=== PATIENT | female | born 1990 | race Caucasian/White ===

== ENCOUNTER 2018-08-09 03:26 | Emergency (ER) | payer SELFPAY ==
--- OUTSIDE RECORDS SUMMARY | 2018-08-09 03:31 | XMS REPORT | Continuity of Care Document ---
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 RIGHT ANKLE Active [facility] FRACTURE 7 [facility] R TIB/FIB FX Active [address] [place] Active Problem 03/24/2018 right [facility] fracture<sup>1</s Medical up> Center [place] fracture Active Problem 02/09/2017 [facility] Final: Displaced 01/22/2017 [facility] [place] fracture of Medical right tibia, Center initial encounter for closed fracture Body mass index 03/24/2018 [facility] 40.0-44.9, adult Medical [place] Morbid obesity 03/24/2018 [facility] due to excess Medical calories [place] Nicotine 03/24/2018 [facility] dependence, Medical cigarettes, Center uncomplicated Unspecified 03/24/2018 [facility] asthma, Medical uncomplicated Center DISPLACED [place]IL[place] Active [facility] FRACTURE OF RIGHT Medical TIBIA, Center Medications Medication Details Route Status Patient Ordering Order Source Instructions Provider Date aspirin 325 mg 325 mg=1 tab, Active 12/16[facility] [place] tablet PO, BID, # 84 2018 Medical tab, 0 Refill(s) [place] Docusate Sodium 100 mg=1 cap, Active 12/16[facility] [place] 100 MG Oral PO, Q12H, PRN as 2018 Medical Capsule needed for Center constipation, # 28 cap, 0 Refill(s) pregabalin 100 100 mg=1 cap, Active 12/16[facility] [place] mg oral capsule PO, Q8H, # 30 2018 Medical cap, 0 Refill(s) Center Oxycodone 10 mg=2 tab, PO, No Longer 12/16[facility] [place] Hydrochloride 5 Q4H, PRN Pain Active 2018 Medical MG Oral Tablet Score 7-10, # 50 Center tab, 0 Refill(s) methocarbamol 1,000 mg=2 tab, No Longer [place] 500 mg oral PO, Q8H, X 10 Active 2018 Medical tablet day, # 60 tab, 0 Center Refill(s) Ondansetron 4 MG 4 mg=1 tab, PO, Active [facility] Oral Tablet BID, # 10 tab, 0 2018 Medical [Zofran] Refill(s) [place] Robaxin 1,000 mg, 2 tab, Inactive [facility] Route: PO, Drug 2018 Medical form: TAB, Q8H, Center Dosing Weight 102.273, kg, Start date: 12/16/17 4:00:00 IMPORT EXPORT AGENT, Duration: 30 day, Stop date: 01/15/18 0:00:00 CDTNotes: (Same as:Robaxin) meloxicam 15 mg 15 mg=1 tab, PO, Active [facility] oral tablet Daily, 2018 Medical NEEDED, 0 Center Refill(s) Docusate 100 mg, Route: No Longer [place] PO, BID, Dosing Active 2017 Medical Weight 102.273, Center kg, Start date: 12/15/17 9:00:00 IMPORT EXPORT AGENT, Duration: 30 day, Stop date: 01/13/18 17:00:00 CDT influenza virus 0.5 mL, Route: Inactive [place] vaccine, IM, Drug Form: 2018 Medical inactivated SUSP, Daily, Center Start date: 12/15/17 9:00:00 IMPORT EXPORT AGENT, Duration: 1 doses or times, Stop date: 12/15/17 9:00:00 CSTNotes: (Same as: Fluzone Quadrivalent, Fluarix Quadrivalent) For 3 years of age and older (0.5 mL IM) Shake well before use Ancef + sterile 1 gm, Route: No Longer [facility] water 10 mL IVP, Q8H, Dosing Active 2018 Medical Weight 102.273, Center kg, Start date: 12/14/17 22:20:00 IMPORT EXPORT AGENT, Duration: 3 doses or times, Stop date: 12/15/17 16:00:00 IMPORT EXPORT AGENT, ABX Indication: Surgical ProphylaxisNotes : (Same As: Ancef, Kefzol) MEDICATION WASTE Product Size: 1000 mg Product Wasted: ___ mg pregabalin 100 mg, 1 cap, No Longer [facility] Route: PO, Drug Active 2017 Medical form: CAP, Q8H, Center Dosing Weight 102.273, kg, Start date: 12/14/17 22:20:00 IMPORT EXPORT AGENT, Duration: 30 day, Stop date: 01/13/18 16:00:00 CDTNotes: (Same as: Lyrica) aspirin 325 mg 325 mg, 1 tab, No Longer [facility] tablet Route: PO, Drug Active 2017 Medical form: ECTAB, Center Q12H, Dosing Weight 102.273, kg, Start date: 12/14/17 22:19:00 IMPORT EXPORT AGENT, Duration: 30 day, Stop date: 01/13/18 21:00:00 CDTNotes: (Do Not Crush) Do not crush or chew. sennosides, ALF 2 tab, Route: Inactive [facility] PO, Dosing 2017 Medical Weight 102.273, Center kg, Bedtime, Start date: 12/14/17 21:00:00 IMPORT EXPORT AGENT, Duration: 30 day, Stop date: 01/12/18 21:00:00 CDT Oxycodone 5 mg, Route: PO, Inactive [facility] Drug form: TAB, 2018 Medical Q4H, Dosing Center Weight 102.273, kg, PRN Pain Score 4-6, Start date: 12/14/17 18:02:00 IMPORT EXPORT AGENT, Duration: 30 day, Stop date: 01/13/18 18:01:00 CDT Flumazenil 0.2 mg, 2 mL, Inactive [facility] Route: IVP, Drug 2017 Medical form: INJ, PRN, Center Dosing Weight 102.273, kg, PRN Benzodiazepine Reversal, Initial dose, Start date: 12/14/17 18:02:00 IMPORT EXPORT AGENT, Duration: 1 day, Stop date: 12/15/17 18:01:00 CSTNotes: (Same as: Romazicon) Naloxone 0.4 mg, 1 mL, Inactive [facility] Route: IVP, Drug 2017 Medical form: INJ, Center Q2MIN, Dosing Weight 102.273, kg, PRN Narcotic Reversal, Start date: 12/14/17 18:02:00 IMPORT EXPORT AGENT, Duration: 8 doses or times, Stop date: 12/15/17 0:00:00 CSTNotes: Same as Narcan Ondansetron 4 mg, 2 mL, Inactive [place] Route: IVP, Drug 2017 Medical form: INJ, ONCE, Center Dosing Weight 102.273, kg, PRN Nausea & Vomiting, Start date: 12/14/17 18:02:00 CSTNotes: (Same as: Zofran) MEDICATION WASTE Product Size: 4 mg Product Wasted: ___ mg Hydromorphone 0.5 mg, Route: Inactive [place] IVP, Q5Min, 2018 Medical Dosing Weight Center 102.273, kg, PRN Pain Score 7-10, Start date: 12/14/17 18:02:00 IMPORT EXPORT AGENT, Duration: 4 doses or times, Stop date: Limited # of times Labetalol 10 mg, 2 mL, Inactive [place] Route: IVP, Drug 2017 Medical form: INJ, Center Q5Min, Dosing Weight 102.273, kg, PRN Elevated BP, Start date: 12/14/17 18:02:00 IMPORT EXPORT AGENT, Duration: 5 doses or times, Stop date: 12/15/17 0:00:00 IMPORT EXPORT AGENT Hydralazine 10 mg, 0.5 mL, Inactive [place] Route: IVP, Drug 2017 Medical form: INJ, Center Q20Min, Dosing Weight 102.273, kg, PRN Elevated BP, Start date: 12/14/17 18:02:00 IMPORT EXPORT AGENT, Duration: 2 doses or times, Stop date: 12/15/17 0:00:00 CSTNotes: (Same as: Apresoline) Push over 5 minutes Acetaminophen 1,000 mg, 2 tab, No Longer [place] Route: PO, Drug Active 2017 Medical form: TAB, Center Q6Hnow, Dosing Weight 102.273, kg, Start date: 12/14/17 18:00:00 IMPORT EXPORT AGENT, Duration: 30 day, Stop date: 01/13/18 12:00:00 CDTNotes: Max acetaminophen 4000 mg/day (4 gm/day). (Same as: Tylenol Extra Strength) Oxycodone 5 mg, 1 tab, No Longer [place] Hydrochloride 5 Route: PO, Drug Active 2017 Medical MG Oral Tablet form: TAB, Q4H, Center Dosing Weight 102.273, kg, PRN Pain Score 4-6, Start date: 12/14/17 17:20:00 IMPORT EXPORT AGENT, Duration: 30 day, Stop date: 01/13/18 17:19:00 CDTNotes: (Same as: Roxicodone) Ondansetron 4 mg, Route: Inactive [facility] IVP, Q8H, Dosing 2018 Medical Weight 102.273, Center kg, PRN Nausea & Vomiting, Start date: 12/14/17 17:20:00 IMPORT EXPORT AGENT, Duration: 30 day, Stop date: 01/13/18 17:19:00 CDT Hydromorphone 0.3 mg, 0.15 mL, No Longer [facility] Route: IVP, Drug Active 2018 Medical form: INJ, Q4H, Center Dosing Weight 102.273, kg, PRN Pain Score 7-10, Start date: 12/14/17 17:20:00 IMPORT EXPORT AGENT, Stop date: 01/13/18 17:19:00 CDTNotes: Same as Dilaudid Dilaudid 0.5 mg, Route: Inactive [facility] IVP, ONCE, 2018 Medical Dosing Weight Center 102.273, kg, Priority: STAT, Start date: 12/14/17 17:08:00 IMPORT EXPORT AGENT, Stop date: 12/14/17 17:08:00 IMPORT EXPORT AGENT Docusate Sodium 100 mg, 1 cap, No Longer [facility] 100 MG Oral Route: PO, Drug Active 2018 Medical Capsule form: CAP, BID, Center Dosing Weight 102.273, kg, Start date: 12/14/17 17:00:00 IMPORT EXPORT AGENT, Duration: 30 day, Stop date: 01/13/18 9:00:00 CDTNotes: (Same as: Colace) (Do Not Crush) neostigmine Route: IV, Drug Inactive [facility] (ANES) form: INJ, ONCE, 2017 Medical Stop date: [place] 12/14/17 16:49:00 IMPORT EXPORT AGENT glycopyrrolate Route: IV, Drug Inactive [facility] (ANES) form: INJ, ONCE, 2018 Medical Stop date: [place] 12/14/17 16:49:00 IMPORT EXPORT AGENT ondansetron Route: IV, Drug Inactive [facility] (ANES) form: INJ, ONCE, 2018 Medical Stop date: [place] 12/14/17 16:40:00 IMPORT EXPORT AGENT albuterol (ANES) Route: Inactive [facility] INHALATION, Drug 2017 Medical form: AERO/A, [place] ONCE, Stop date: 12/14/17 14:40:00 IMPORT EXPORT AGENT dexamethasone Route: IV, Drug Inactive [place] (ANES) form: INJ, ONCE, 2017 Medical Stop date: [place] 12/14/17 14:35:00 IMPORT EXPORT AGENT rocuronium Route: IV, Drug Inactive o[facility] (ANES) form: INJ, ONCE, 2017 Medical Stop date: [place] 12/14/17 14:25:00 IMPORT EXPORT AGENT lidocaine (ANES) Route: IV, Drug Inactive [facility] form: INJ, ONCE, 2017 Medical Stop date: [place] 12/14/17 14:25:00 IMPORT EXPORT AGENT propofol (ANES) Route: IV, Drug Inactive [facility] form: INJ, ONCE, 2017 Medical Stop date: [place] 12/14/17 14:25:00 IMPORT EXPORT AGENT fentaNYL (ANES) Route: IV, Drug Inactive [facility] form: INJ, ONCE, 2017 Medical Stop date: [place] 12/14/17 14:25:00 IMPORT EXPORT AGENT ceFAZolin (ANES) Route: IV, Drug Inactive [facility] form: INJ, ONCE, 2017 Medical Stop date: [place] 12/14/17 14:20:00 IMPORT EXPORT AGENT acetaminophen Route: IV, Drug Inactive [place] (ANES) 10 mg form: INJ, Start 2017 Medical date: 12/14/17 [place] 14:07:00 IMPORT EXPORT AGENT, Stop date: 12/14/17 15:07:00 IMPORT EXPORT AGENT midazolam (ANES) Route: IV, Drug Inactive [facility] form: SOLN, 2018 Medical ONCE, Stop date: [place] 12/14/17 14:05:00 IMPORT EXPORT AGENT Lactated Ringers Route: IV, Total Inactive [facility] Injection IV Volume: 1,000, 2018 Medical (ANES) 1000 mL Start date: [place] 12/14/17 13:31:00 IMPORT EXPORT AGENT, Stop date: 12/14/17 14:31:00 IMPORT EXPORT AGENT Benadryl 25 mg, 1 cap, No Longer [place] Route: PO, Drug Active 2017 Medical form: CAP, TID, Center Dosing Weight 102.273, kg, PRN Itching, Start date: 12/14/17 13:21:00 IMPORT EXPORT AGENT, Duration: 30 day, Stop date: 01/13/18 13:20:00 CDTNotes: (Same as: Benadryl) Promethazine 12.5 mg, 0.5 mL, No Longer [facility] Route: IVPB, Active 2017 Medical Drug form: INJ, Center Q4H, Dosing Weight 102.273, kg, PRN Nausea & Vomiting, Start date: 12/14/17 13:21:00 IMPORT EXPORT AGENT, Duration: 30 day, Stop date: 01/13/18 13:20:00 CDTNotes: Do not give IV push. (Same as: Phenergan) Ondansetron 4 mg, 2 mL, No Longer [facility] Route: IV, Drug Active 2017 Medical form: INJ, Q8H, Center Dosing Weight 102.273, kg, PRN Nausea, Start date: 12/14/17 13:21:00 IMPORT EXPORT AGENT, Duration: 30 day, Stop date: 01/13/18 13:20:00 CDTNotes: (Same as: Zofran) MEDICATION WASTE Product Size: 4 mg Product Wasted: ___ mg meloxicam PO, Daily, 0 No Longer [facility] Refill(s) Active 2017 [facility] Promethazine 6.25 mg, 0.25 No Longer [facility] mL, Route: IVPB, Active 2016 Medical Drug form: INJ, Center ONCE, Dosing Weight 102.273, kg, PRN Nausea & Vomiting, Start date: 03/17/17 13:42:00 CDTNotes: Do not give IV push. (Same as: Phenergan) Ondansetron 4 mg, 2 mL, No Longer [facility] Route: IVP, Drug Active 2016 Medical form: INJ, ONCE, Center Dosing Weight 102.273, kg, PRN Nausea & Vomiting, Start date: 03/17/17 13:42:00 CDTNotes: (Same as: Zofran) MEDICATION WASTE Product Size: 4 mg Product Wasted: ___ mg Flumazenil 0.2 mg, 2 mL, No Longer [facility] Route: IVP, Drug Active 2016 Medical form: INJ, PRN, Center Dosing Weight 102.273, kg, PRN Benzodiazepine Reversal, Initial dose, Start date: 03/17/17 13:42:00 CDT, Duration: 1 day, Stop date: 03/18/17 13:41:00 CDTNotes: (Same as: Romazicon) Naloxone 0.4 mg, 1 mL, No Longer [facility] Route: IVP, Drug Active 2016 Medical form: INJ, Center Q2MIN, Dosing Weight 102.273, kg, PRN Narcotic Reversal, Start date: 03/17/17 13:42:00 CDT, Duration: 8 doses or times, Stop date: Limited # of timesNotes: Same as Narcan Hydromorphone 0.5 mg, 0.25 mL, No Longer [facility] Route: IVP, Drug Active 2016 Medical form: INJ, Center Q5Min, Dosing Weight 102.273, kg, PRN Pain Score 7-10, Start date: 03/17/17 13:42:00 CDT, Duration: 4 doses or times, Stop date: Limited # of timesNotes: Same as: Dilaudid lidocaine (ANES) Route: IV, Drug Inactive [facility] form: INJ, ONCE, 2016 Medical Stop date: [place] 03/17/17 13:20:00 CDT propofol (ANES) Route: IV, Drug Inactive [facility] form: INJ, ONCE, 2016 Medical Stop date: [place] 03/17/17 13:20:00 CDT dexamethasone Route: IV, Drug Inactive [facility] (ANES) form: INJ, ONCE, 2016 Medical Stop date: [place] 03/17/17 13:20:00 CDT fentaNYL (ANES) Route: IV, Drug Inactive [facility] form: INJ, ONCE, 2016 Medical Stop date: [place] 03/17/17 13:20:00 CDT ketOROLAC (ANES) IV, ONCE Inactive [address] ondansetron Route: IV, Drug Inactive [facility] (ANES) form: INJ, ONCE, 2016 Medical Stop date: [place] 03/17/17 13:20:00 CDT midazolam (ANES) Route: IV, Drug Inactive [facility] form: SOLN, 2017 Medical ONCE, Stop date: [place] 03/17/17 13:17:00 CDT propofol (ANES) Route: IV, Drug Inactive [place] (ANES) form: INJ, Start 2016 Medical date: 03/17/17 [place] 13:05:00 CDT, Stop date: 03/17/17 14:05:00 CDT acetaminophen Route: IV, Drug Inactive [place] (ANES) (ANES) form: INJ, Start 2016 Medical date: 03/17/17 [place] 12:45:00 CDT, Stop date: 03/17/17 13:45:00 CDT ceFAZolin (ANES) Route: IV, Drug Inactive [place] (ANES) form: INJ, Start 2016 Medical date: 03/17/17 [place] 12:37:00 CDT, Stop date: 03/17/17 13:37:00 CDT LR 1000 mL INJ Route: IV, Total Inactive [place] (ANES) Volume: 1,000, 2016 Medical Start date: [place] 03/17/17 12:22:00 CDT, Stop date: 03/17/17 13:22:00 CDT ceFAZolin 2 gm, 100 mL, No Longer [place] Route: IVPB, Active 2016 Medical Drug form: INJ, Center PRE OP, Start date: 03/16/17 23:00:00 CDT, Duration: 1 day, Stop date: 03/17/17 22:59:00 CDT, ABX Indication: Surgical ProphylaxisNotes : Same as: Ancef gabapentin 300 600 mg=2 cap, Active [place] MG Oral Capsule PO, Q8H, # 60 2017 Medical cap, 0 Refill(s) [place] Docusate Sodium 100 mg=1 cap, Active [place] 100 MG Oral PO, Q12H, PRN as 2017 Medical Capsule needed for Center constipation, # 28 cap, 0 Refill(s) Aspirin 325 MG 325 mg=1 tab, Active [place] Enteric Coated PO, Daily, Do 2017 Medical Tablet not take in Center combination with Lovenos, # 18 tab, 0 Refill(s) methocarbamol See No Longer [place] 500 mg oral Instructions, Active 2016 Medical tablet PRN as needed Center for spasm, 1-2 tab PO Q8H, # 40 cap, 0 Refill(s) acetaminophen See No Longer [place] 500 mg oral Instructions, Active 2016 Medical tablet PRN as needed Center for pain, 1-2 tab PO Q6H not to exceed 4000 mg/day, # 50 tab, 0 Refill(s) ropivacaine Route: NERVE Inactive [place] BLOCK, Start 2016 Medical date: 02/06/17 Center 8:36:00 CDT 400 mL, Drug Form: INJ, Dosing Weight 110.45, kg, Duration: 30 day, Stop date: 03/08/17 8:35:00 CDT, 8 ml/hrNotes: Final concentration: Ropivacaine 0.2% 400 ml gabapentin 300 900 mg, 3 cap, No Longer [place] MG Oral Capsule Route: PO, Drug Active 2016 Medical form: CAP, Q8H, Center Dosing Weight 110.455, kg, (CrCl > 60 ml/min), Start date: 02/05/17 16:00:00 CDT, Duration: 30 day, Stop date: 03/07/17 8:00:00 CDTNotes: (Same as: Neurontin) Oxycodone 5 mg, 1 tab, Inactive [place] Hydrochloride 5 Route: PO, Drug 2016 Medical MG Oral Tablet form: TAB, ONCE, Center Dosing Weight 110.45, kg, Priority: NOW, Start date: 02/04/17 21:50:00 CDT, Stop date: 02/04/17 21:50:00 CDTNotes: (Same as: Roxicodone) Methocarbamol 1,000 mg, 2 tab, No Longer [place] Route: PO, Drug Active 2016 Medical form: TAB, Q8H, Center Dosing Weight 110.455, kg, Start date: 02/04/17 0:00:00 CDT, Duration: 30 day, Stop date: 03/07/17 8:00:00 CDTNotes: (Same as:Robaxin) Cefazolin 2 gm, Route: No Longer [place] IVPB, Drug form: Active 2016 Medical INJ, ABXQ8H, Center Dosing Weight 110.455, kg, Start date: 02/03/17 20:00:00 CDT, Duration: 3 doses or times, Stop date: 02/04/17 12:00:00 CDTNotes: (Same As: Debra Neal) Cefazolin FOR IV SET ONLY MEDICATION WASTE Product Size: 1000 mg Product Wasted: ___ mg Ofirmev 1,000 mg, 100 Inactive [place] mL, Route: IV, 2016 Medical Drug form: INJ, Center Q6H, Dosing Weight 110.455, kg, Start date: 02/03/17 18:00:00 CDT, Duration: 2 day, Stop date: 02/05/17 12:00:00 CDTNotes: Infuse over 15 minutes Do not exceed 4gm/day of acetaminophen MEDICATION WASTE Product Size: 1000 mg Product Wasted: ___ mg Acetaminophen 1,000 mg, 2 tab, No Longer [place] Route: PO, Drug Active 2016 Medical form: TAB, Q6H, Center Dosing Weight 110.455, kg, Start date: 02/03/17 18:00:00 CDT, Duration: 30 day, Stop date: 03/05/17 12:00:00 CDTNotes: Max acetaminophen 4000 mg/day (4 gm/day). (Same as: Tylenol Extra Strength) Docusate Sodium 100 mg, 1 cap, No Longer [place] 100 MG Oral Route: PO, Drug Active 2016 Medical Capsule form: CAP, BID, Center Dosing Weight 110.455, kg, Start date: 02/03/17 17:00:00 CDT, Duration: 30 day, Stop date: 03/05/17 9:00:00 CDTNotes: (Same as: Colace) (Do Not Crush) Oxycodone 10 mg, 2 tab, No Longer [place] Hydrochloride 5 Route: PO, Drug Active 2016 Medical MG Oral Tablet form: TAB, Q4H, Center Dosing Weight 110.455, kg, PRN Pain Score 7-10, Start date: 02/03/17 16:28:00 CDT, Duration: 30 day, Stop date: 03/05/17 16:27:00 CDTNotes: (Same as: Roxicodone) gabapentin 300 600 mg, 2 cap, No Longer [place] MG Oral Capsule Route: PO, Drug Active 2016 Medical form: CAP, Q8H, Center Dosing Weight 110.455, kg, (CrCl > 60 ml/min), Start date: 02/03/17 16:00:00 CDT, Stop date: 03/05/17 8:00:00 CDTNotes: (Same as: Neurontin) Lovenox 30 mg, 0.3 mL, No Longer [place] Route: SUB-Q, Active 2016 Medical Drug form: INJ, Center Q12H, Dosing Weight 110.455, kg, Start date: 02/03/17 15:00:00 CDT, Duration: 30 day, Stop date: 03/05/17 4:00:00 CDTNotes: (Same as: Lovenox) ropivacaine Route: NERVE No Longer [place] BLOCK, Active 2016 Medical Continuous Rate: Center 8, ml/hr, Dosing Site: Sciatic popliteal Side: Right, [employer] dose 5 mL, [employer] dose lockout: 30 minutes, 1 Hour limit: 18 mL, 200, mL, Start date: 02/03/17 13:06:00 CDT, Drug Form: INJ, Total volume: 200, mL, kg, Stop da...Notes: Same as: Naropin Ondansetron 4 mg, 2 mL, No Longer [place] Route: IVP, Drug Active 2016 Medical form: INJ, Q6H, Center Dosing Weight 110.455, kg, PRN Nausea & Vomiting, Start date: 02/03/17 12:36:00 CDT, Duration: 30 day, Stop date: 03/05/17 12:35:00 CDTNotes: (Same as: Zofran) MEDICATION WASTE Product Size: 4 mg Product Wasted: ___ mg Acetaminophen 650 mg, Route: Inactive [place] PO, Drug form: 2017 Medical TAB, Q4H, Dosing Center Weight 110.455, kg, PRN Pain 1-3/Temp > 100.4 F, Start date: 02/03/17 12:36:00 CDT, Duration: 30 day, Stop date: 03/05/17 12:35:00 CDT Lactated Ringers 1,000 mL, Rate: No Longer [place] 1,000 mL 125 ml/hr, Active 2017 Medical Infuse over: 8 Center hr, Route: IV, Dosing Weight 110.455 kg, Total Volume: 1,000, Start date: 02/03/17 12:36:00 CDT, Duration: 30 day, Stop date: 03/05/17 12:35:00 CDT Ondansetron 4 mg, 2 mL, Inactive [place] Route: IVP, Drug 2016 Medical form: INJ, ONCE, Center Dosing Weight 110.455, kg, PRN Nausea & Vomiting, Start date: 02/03/17 12:34:00 CDTNotes: (Same as: Zofran) MEDICATION WASTE Product Size: 4 mg Product Wasted: ___ mg Flumazenil 0.2 mg, 2 mL, Inactive [place] Route: IVP, Drug 2016 Medical form: INJ, PRN, Center Dosing Weight 110.455, kg, PRN Benzodiazepine Reversal, Initial dose, Start date: 02/03/17 12:34:00 CDT, Duration: 30 day, Stop date: 03/05/17 12:33:00 CDTNotes: (Same as: Romazicon) Naloxone 0.4 mg, 1 mL, Inactive [place] Route: IVP, Drug 2016 Medical form: INJ, Center Q2MIN, Dosing Weight 110.455, kg, PRN Narcotic Reversal, Start date: 02/03/17 12:34:00 CDT, Duration: 8 doses or times, Stop date: Limited # of timesNotes: Same as Narcan Hydromorphone 0.5 mg, Route: Inactive [place] IVP, Q5Min, 2017 Medical Dosing Weight Center 110.455, kg, PRN Pain Score 7-10, Start date: 02/03/17 12:34:00 CDT, Duration: 4 doses or times, Stop date: Limited # of times Oxycodone 10 mg, 2 tab, Inactive [place] Route: PO, Drug 2016 Medical form: TAB, Q4H, Center Dosing Weight 110.455, kg, PRN Pain Score 7-10, Start date: 02/03/17 12:34:00 CDT, Duration: 1 day, Stop date: 02/04/17 12:33:00 CDTNotes: (Same as: Roxicodone) glycopyrrolate Route: IV, Drug Inactive [place] (ANES) form: INJ, ONCE, 2016 Medical Stop date: [place] 02/03/17 12:10:00 CDT neostigmine Route: IV, Drug Inactive [place] (ANES) form: INJ, ONCE, 2016 Medical Stop date: [place] 02/03/17 12:10:00 CDT albuterol (ANES) Route: Inactive [facility] INHALATION, Drug 2016 Medical form: AERO/A, [place] ONCE, Stop date: 02/03/17 12:06:00 CDT ondansetron Route: IV, Drug Inactive [place] (ANES) form: INJ, ONCE, 2016 Medical Stop date: [place] 02/03/17 11:59:00 CDT hydromorphone Route: IV, Drug Inactive [facility] (ANES) form: INJ, ONCE, 2016 Medical Stop date: [place] 02/03/17 11:49:00 CDT dexamethasone Route: IV, Drug Inactive [facility] (ANES) form: INJ, ONCE, 2016 Medical Stop date: [place] 02/03/17 9:59:00 CDT propofol (ANES) Route: IV, Drug Inactive [facility] form: INJ, ONCE, 2016 Medical Stop date: [place] 02/03/17 8:39:00 CDT lidocaine (ANES) Route: IV, Drug Inactive [facility] form: INJ, ONCE, 2016 Medical Stop date: [place] 02/03/17 8:39:00 CDT rocuronium Route: IV, Drug Inactive [place] (ANES) form: INJ, ONCE, 2016 Medical Stop date: [place] 02/03/17 8:39:00 CDT fentaNYL (ANES) Route: IV, Drug Inactive [facility] form: INJ, ONCE, 2016 Medical Stop date: [place] 02/03/17 8:39:00 CDT ceFAZolin (ANES) Route: IV, Drug Inactive [facility] form: INJ, ONCE2016 Medical Stop date: [place] 02/03/17 8:34:00 CDT midazolam (ANES) Route: IV, Drug Inactive [facility] form: SOLN, 2017 Medical ONCE, Stop date: [place] 02/03/17 8:34:00 CDT acetaminophen Route: IV, Drug Inactive [facility] (ANES) (ANES) form: INJ, Start 2016 Medical date: 02/03/17 Center 8:14:00 CDT, Stop date: 02/03/17 9:14:00 CDT LR 1000 mL INJ Route: IV, Total Inactive [facility] (ANES) Volume: 1,000, 2016 Medical Start date: [place] 02/03/17 7:30:00 CDT, Stop date: 02/03/17 8:30:00 CDT ceFAZolin 2 gm, 100 mL, No Longer [facility] Route: IVPB, Active 2016 Medical Drug form: INJ, Center PRE OP, Start date: 02/02/17 23:00:00 CDT, Duration: 1 day, Stop date: 02/03/17 22:59:00 CDTNotes: Same as: Ancef Ibuprofen 400 MG 400 mg=1 tab, Active [place] Oral Tablet PO, Q8H, PRN 2017 Medical Pain Score 4-6, Center X 14 day, # 42 tab, 0 Refill(s) methocarbamol 1,000 mg=2 tab, Active [place] 500 mg oral PO, Q8H, PRN 2017 Medical tablet Muscle Spasms, X Center 14 day, # 84 tab, 0 Refill(s) gabapentin 300 300 mg=1 cap, Active [place] MG Oral Capsule PO, Q8H, # 90 2017 Medical cap, 0 Refill(s) Center enoxaparin 40 40 mg=0.4 mL, Active [place] mg/0.4 mL SUB-Q, [id number], 2017 Medical subcutaneous X 21 day, # 8 Center solution mL, 0 Refill(s) Docusate Sodium 100 mg=1 cap, Active [place] 100 MG Oral PO, Q12H, # 28 2017 Medical Capsule cap, 0 Refill(s) Center acetaminophen 1,000 mg=2 tab, Active [place] 500 mg oral PO, Q6H, X 14 2016 Medical tablet day, # 112 tab, Center 0 Refill(s) acetaminophen 1,000 mg, 2 tab, No Longer [place] Route: PO, Drug Active 2016 Medical form: TAB, Q6H, Center Start date: 01/18/17 22:00:00 CDT, Stop date: 01/19/17 18:00:00 CDTNotes: Max acetaminophen 4000 mg/day (4 gm/day). (Same as: Tylenol Extra Strength) Ibuprofen 400 MG 400 mg, 1 tab, No Longer [place] Oral Tablet Route: PO, Drug Active 2016 Medical form: TAB, Q8H, Center Dosing Weight 110, kg, PRN Pain Score 4-6, Start date: 01/18/17 10:57:00 CDT, Duration: 30 day, Stop date: 02/17/17 10:56:00 CDTNotes: (Same as: Motrin) "Do Not Crush" Give with food. pneumococcal 0.5 mL, Route: Inactive [facility] capsular IM, Drug Form: 2016 Medical polysaccharide INJ, Daily, Center type 1 vaccine / Start date: pneumococcal 01/18/17 9:00:00 capsular CDT, Duration: 1 polysaccharide doses or times, type 10A vaccine Stop date: / pneumococcal 01/18/17 9:00:00 capsular CDTNotes: (Same polysaccharide as: Pneumovax type 11A vaccine 23) Refrigerate / pneumococcal capsular polysaccharide type 12F vaccine / pneumococcal capsular polysacchar Oxycodone 5 mg, 1 tab, No Longer [facility] Hydrochloride 5 Route: PO, Drug Active 2016 Medical MG Oral Tablet form: TAB, Q4H, Center Dosing Weight 110, kg, PRN Pain Score 4-6, Start date: 01/18/17 8:22:00 CDT, Duration: 30 day, Stop date: 02/17/17 8:21:00 CDTNotes: (Same as: Roxicodone) Lovenox 40 mg, 0.4 mL, No Longer [facility] Route: SUB-Q, Active 2016 Medical Drug form: INJ, Center [id number], Dosing Weight 110, kg, Start date: 01/18/17 6:00:00 CDT, Duration: 30 day, Stop date: 02/16/17 6:00:00 CDT Cefazolin 2 gm, Route: No Longer [facility] IVPB, Drug form: Active 2016 Medical INJ, [id number], Center Dosing Weight 111, kg, Start date: 01/17/17 22:00:00 CDT, Duration: 24 hr, Stop date: 01/18/17 14:00:00 CDTNotes: (Same As: Debra Neal) Cefazolin FOR IV SET ONLY MEDICATION WASTE Product Size: 1000 mg Product Wasted: _0__ mg sennosides, ALF 17.2 mg, 2 tab, No Longer [facility] Route: PO, Drug Active 2016 Medical Form: TAB, Center Dosing Weight 110, kg, Bedtime, Start date: 01/17/17 21:00:00 CDT, Duration: 30 day, Stop date: 02/15/17 21:00:00 CDTNotes: (Same as: Rae) Docusate 100 mg, 1 cap, No Longer [facility] Route: PO, Drug Active 2016 Medical form: CAP, Q12H, Center Dosing Weight 110, kg, Start date: 01/17/17 21:00:00 CDT, Duration: 30 day, Stop date: 02/16/17 9:00:00 CDT Morphine 30 mg, 30 mL, No Longer [facility] Route: IV, Active 2016 Medical Initial Loading Center Dose: 2 mg, [employer] Dose: 1 mg, [employer] Lockout: 10 minutes, Continuous Basal Rate: 0 mg, 4 Hour Limit (In MG): 24, Drug Form: INJ, Continuous, Start date: 01/17/17 20:00:00 CDT, Duration: 30 day, Stop date: 02/16/17...Notes : Dose: Delay: Basal rate: 4hr limit: (Same as:Vira) gabapentin 300 mg, 1 cap, No Longer [facility] Route: PO, Drug Active 2016 Medical form: CAP, Q8H, Center Dosing Weight 110, kg, Priority: NOW, Start date: 01/17/17 20:00:00 CDT, Duration: 30 day, Stop date: 02/16/17 16:00:00 CDTNotes: (Same as: Neurontin) Ondansetron 4 mg, 2 mL, No Longer [facility] Route: IVP, Drug Active 2016 Medical form: INJ, Q8H, Center Dosing Weight 110, kg, PRN Nausea & Vomiting, Start date: 01/17/17 20:00:00 CDT, Duration: 30 day, Stop date: 02/16/17 19:59:00 CDTNotes: (Same as: Zofran) MEDICATION WASTE Product Size: 4 mg Product Wasted: ___ mg Bisacodyl 10 mg, 1 supp, No Longer [facility] Route: ME, Drug Active 2016 Medical form: SUPP, Center Daily, Dosing Weight 110, kg, PRN Constipation, Start date: 01/17/17 20:00:00 CDT, Duration: 30 day, Stop date: 02/16/17 19:59:00 CDTNotes: (Same As: Dulcolax, Bisco-Lax) Methocarbamol 1,000 mg, 2 tab, No Longer [facility] Route: PO, Drug Active 2016 Medical form: TAB, Q8H, Center Dosing Weight 110, kg, PRN Muscle Spasms, Start date: 01/17/17 20:00:00 CDT, Duration: 30 day, Stop date: 02/16/17 19:59:00 CDTNotes: (Same as:Robaxin) celecoxib 200 mg, 1 cap, No Longer [facility] Route: PO, Drug Active 2016 Medical form: CAP, Q12H, Center Dosing Weight 110, kg, Priority: NOW, Start date: 01/17/17 20:00:00 CDT, Duration: 48 hr, Stop date: 01/19/17 9:00:00 CDT Acetaminophen 1,000 mg, 100 No Longer [facility] mL, Route: IVPB, Active 2016 Medical Drug form: INJ, Center Q6H, Dosing Weight 110, kg, Priority: NOW, Start date: 01/17/17 20:00:00 CDT, Duration: 48 hr, Stop date: 01/19/17 18:00:00 CDTNotes: MEDICATION WASTE Product Size: 1000 mg Product Wasted: ___ mg Naloxone 0.04 mg, 0.1 mL, No Longer [facility] Route: IVP, Drug Active 2016 Medical form: INJ, Center Q2MIN, Dosing Weight 110, kg, PRN Narcotic Reversal, Start date: 01/17/17 19:58:00 CDT, Duration: 30 day, Stop date: 02/16/17 19:57:00 CDTNotes: Same as Narcan Ondansetron 4 mg, 2 mL, Inactive [facility] Route: IVP, Drug 2016 Medical form: INJ, ONCE, Center Dosing Weight 111, kg, PRN Nausea & Vomiting, Start date: 01/17/17 16:05:00 CDTNotes: (Same as: Zofran) MEDICATION WASTE Product Size: 4 mg Product Wasted: ___ mg Flumazenil 0.2 mg, 2 mL, Inactive [facility] Route: IVP, Drug 2016 Medical form: INJ, PRN, Center Dosing Weight 111, kg, PRN Benzodiazepine Reversal, Initial dose, Start date: 01/17/17 16:05:00 CDT, Stop date: 01/18/17 0:00:00 CDTNotes: (Same as: Romazicon) Naloxone 0.4 mg, 1 mL, Inactive [facility] Route: IVP, Drug 2016 Medical form: INJ, Center Q2MIN, Dosing Weight 111, kg, PRN Narcotic Reversal, Start date: 01/17/17 16:05:00 CDT, Duration: 8 doses or times, Stop date: 01/18/17 0:00:00 CDTNotes: Same as Narcan Hydromorphone 0.5 mg, 0.25 mL, Inactive [facility] Route: IVP, Drug 2016 Medical form: INJ, Center Q5Min, Dosing Weight 111, kg, PRN Pain Score 7-10, Start date: 01/17/17 16:05:00 CDT, Duration: 4 doses or times, Stop date: 01/18/17 0:00:00 CDTNotes: Same as: Dilaudid neostigmine Route: IV, Drug Inactive [facility] (ANES) form: INJ, ONCE, 2016 Medical Stop date: Center 01/17/17 15:39:00 CDT glycopyrrolate Route: IV, Drug Inactive [facility] (ANES) form: INJ, ONCE, 2016 Medical Stop date: [place] 01/17/17 15:39:00 CDT midazolam (ANES) Route: IV, Drug Inactive [facility] form: SOLN, 2017 Medical ONCE, Stop date: [place] 01/17/17 15:29:00 CDT ondansetron Route: IV, Drug Inactive [facility] (ANES) form: INJ, ONCE, 2016 Medical Stop date: [place] 01/17/17 15:29:00 CDT acetaminophen Route: IV, Drug Inactive [facility] (ANES) form: INJ, ONCE, 2016 Medical Stop date: [place] 01/17/17 15:29:00 CDT fentaNYL (ANES) Route: IV, Drug Inactive [facility] form: INJ, ONCE, 2016 Medical Stop date: [place] 01/17/17 15:07:00 CDT rocuronium Route: IV, Drug Inactive [facility] (ANES) form: INJ, ONCE, 2016 Medical Stop date: [place] 01/17/17 15:07:00 CDT propofol (ANES) Route: IV, Drug Inactive [facility] form: INJ, ONCE, 2016 Medical Stop date: [place] 01/17/17 15:07:00 CDT lidocaine (ANES) Route: IV, Drug Inactive [facility] form: INJ, ONCE, 2016 Medical Stop date: [place] 01/17/17 15:07:00 CDT ceFAZolin (ANES) Route: IV, Drug Inactive [facility] form: INJ, ONCE, 2016 Medical Stop date: [place] 01/17/17 15:02:00 CDT LR 1000 mL INJ Route: IV, Total Inactive [facility] (ANES) Volume: 1,000, 2016 Medical Start date: [place] 01/17/17 14:19:00 CDT, Stop date: 01/17/17 15:19:00 CDT Sodium Chloride 1,000 mL, Rate: Inactive [facility] 0.154 MEQ/ML 75 ml/hr, Infuse 2017 Medical Injectable over: 13.3 hr, [place] Solution Route: IV, Dosing Weight 111 kg, Total Volume: 1,000, Priority: STAT, Start date: 01/17/17 13:58:00 CDT, Duration: 1 doses or times, Stop date: 01/18/17 3:15:00 CDT Dilaudid 2 mg, Route: Inactive 01/17[facility] IVP, ONCE, 2017 Medical Dosing Weight Center 111, kg, Priority: STAT, Start date: 01/17/17 12:59:00 CDT, Stop date: 01/17/17 12:59:00 CDT Morphine 4 mg, 1 mL, Inactive 01/17[facility] Route: IVP, Drug 2016 Medical form: INJ, ONCE, Center Dosing Weight 111, kg, Priority: STAT, Start date: 01/17/17 11:09:00 CDT, Stop date: 01/17/17 11:09:00 CDTNotes: (Same as:MORPhine Sulfate) Saline Flush 10 mL, Route: No Longer [facility] 0.9% MISC, Drug Form: Active 2017 Medical INJ, Dosing Center Weight 111, kg, PRN, PRN Line Flush, Start date: 01/17/17 10:14:00 CDT, Duration: 30 day, Stop date: 02/16/17 10:13:00 CDTNotes: (Same as: BD Posiflush) Fentanyl 50 microgram, Inactive 01/17[facility] Route: IVP, 2017 Medical ONCE, Dosing Center Weight 111, kg, Priority: STAT, Start date: 01/17/17 10:14:00 CDT, Stop date: 01/17/17 10:14:00 CDT Ondansetron 4 mg, 2 mL, Inactive 01/17[facility] Route: IVP, Drug 2016 Medical form: INJ, ONCE, Center Dosing Weight 111, kg, Priority: STAT, Start date: 01/17/17 10:14:00 CDT, Stop date: 01/17/17 10:14:00 CDTNotes: (Same as: Zofran) MEDICATION WASTE Product Size: 4 mg Product Wasted: ___ mg Allergies, Adverse Reactions, Alerts Substance Category Reaction Severity Reaction Status Date Comments Source type Reported codeine Assertion Drug Active [facility] HYDROcodone Assertion Drug Active [facility] Plastic Tape Assertion Drug Active [facility] traMADol Assertion Drug Active [facility] Latex Assertion Drug Active [facility] Immunizations Immunization Date Given Site Status Last Comments Source Updated influenza virus 12/15/2017 Right completed Alan [facility] vaccine, deltoid Medical inactivated Center pneumococcal 01/18/2017 Right completed Katlyn [facility] 23-valent vaccine [facility] Results Order Name Results Value Reference Date Interpretation Comments Source Range HEMATOLOGY Lymphocytes # 1.7 K/CMM 1.0 - 5.5 12/[address] HEMATOLOGY Monocytes # 0.8 K/CMM 0.0 - 0.8 03/ [address] HEMATOLOGY Basophils 0.3 % 0.0 - 1.0 12/[address] HEMATOLOGY Segs-Bands # 7.3 K/CMM 1.5 - 8.1 12/[address] HEMATOLOGY Lymphocytes 17.0 % 20.0 - 12/16 [facility] [address] [facility] HEMATOLOGY Eosinophils 0.2 % 0.0 - 4.0 12/[address] HEMATOLOGY Monocytes 7.8 % 2.0 - 12.0 / [address] HEMATOLOGY Segs 74.7 % 45.0 - / [facility] [address] [facility] HEMATOLOGY MPV 9.6 fL 7.4 - 10.4 12/[address] HEMATOLOGY Platelet 168 K/CMM 133 - [address] HEMATOLOGY RDW 14.7 % 11.5 - / [facility] [address] [facility] HEMATOLOGY Hct 37.6 % 36.0 - 03/ [facility] [address] [facility] HEMATOLOGY RBC 4.19 M/CMM 4.20 - 03/03 [facility] [address] [facility] HEMATOLOGY MCV 89.6 fL 80.0 - 03/ [facility] [address] [facility] HEMATOLOGY MCHC 33.5 g/dL 32.0 - 03/ [facility] 36.[address] [facility] HEMATOLOGY Hgb 12.6 g/dL 12.0 - 03/ [facility] [address] [facility] HEMATOLOGY MCH 30.0 pg 27.0 - 03/ [facility] [address] [facility] HEMATOLOGY WBC 9.7 K/CMM 3.7 - 10.4 03/ /2017 [facility] HEMATOLOGY Hct 37.8 % 36.0 - 03/ [place] 48.0 /2018 [facility] HEMATOLOGY Hgb 12.6 g/dL 12.0 - 03/ 16.0 /2017 [facility] HEMATOLOGY RBC 4.26 M/CMM 4.20 - 03/ 5.40 /2017 [facility] HEMATOLOGY WBC 13.1 K/CMM 3.7 - 10.4 03/ [facility] HEMATOLOGY MPV 10.0 fL 7.4 - 10.4 03/ [facility] HEMATOLOGY Platelet 183 K/CMM 133 - 450 03/ [address] [place] [address] HEMATOLOGY RDW 14.1 % 11.5 - 03/ [facility] [address] [facility] HEMATOLOGY MCH 29.6 pg 27.0 - 12/15 31.0 /2017 [facility] HEMATOLOGY MCV 88.7 fL 80.0 - 12/[address] [facility] HEMATOLOGY MCHC 33.4 g/dL 32.0 - 03/ [place] 36.0 /2017 [facility] HEMATOLOGY Basophils 0.0 % 0.0 - 1.0 03/ [facility] [address] [place] [address] HEMATOLOGY Lymphocytes # 0.6 K/CMM 1.0 - 5.5 / [facility] [address] [place] [address] HEMATOLOGY Segs-Bands # 12.2 K/CMM 1.5 - 8.1 03/ [facility] [address] [place] [address] HEMATOLOGY Monocytes 2.8 % 2.0 - 12.0 03/ [facility] [address] [place] [address] HEMATOLOGY Monocytes # 0.4 K/CMM 0.0 - 0.8 03/ [address] [place] [address] HEMATOLOGY Lymphocytes 4.4 % 20.0 - 03/ [place] [address] [facility] HEMATOLOGY Eosinophils 0.0 % 0.0 - 4.0 03/ [facility] [address] [place] [address] HEMATOLOGY Segs 92.8 % 45.0 - 03/ 75.0 [facility] BLOOD BANK Antibody Scrn Negative 12/14 [facility] /2017 [facility] (12/14/17 1:05 PM) [place] BLOOD BANK ABO/Rh A POS 12/14 [facility] /2017 [facility] HEMATOLOGY Hct 41.4 % 36.0 - 03 [facility] [place] 48.0 /2018 [facility] HEMATOLOGY Hgb 14.0 g/dL 12.0 - 12/14 [facility] [address] [facility] Ankle 2 Ankle 2 views EXAM: XR RIGHT ANKLE 2 VIEWS 12/14 - [facility] views DX DX /2017 - [facility] DATE: 12/14/2017 1:56 PM IMPORT EXPORT AGENT Read by: Jony Guardado MD Dictated Date/time: 12/15/17 09:00 Electronically Signed by: Jony Guardado MD 12/15/17 09:16 FINAL REPORT INDICATION: POST OP - ALIGNMENT COMPARISON: 02/03/2017 TECHNIQUE: AP and lateral radiographs of the ankle FINDINGS: There is interval tibiotalar joint effusion with placement of anterior plate and screws and additional tibiotalar screws. Cortical thickening and bridging callus is seen along the medial aspect of the distal tibia. Post traumatic deformity and degenerative changes of the tibiotalar joint. There is unchanged mildly displaced comminuted fracture of the lateral malleolus without evidence of effusion. No new fracture seen. A prior pin track is seen in the posterior calcaneus and multiple pin/ screw tracks seen in the mid distal tibia. Postsurgical soft tissue changes and diffuse soft tissue swelling is present. Fine details are obscured by overlying splint material. IMPRESSION: 1. Interval tibiotalar joint fusion with anterior plate and screws. 2. Nonunited lateral malleolar fracture. HEMATOLOGY Platelet 193 K/CMM 133 - 450 02/06 [facility] HEMATOLOGY MPV 8.6 fL 7.4 - 10.4 02/[address] [place] [address] HEMATOLOGY RBC 3.54 M/CMM 4.20 - 02/06 [facility] 5.40 /2016 [facility] HEMATOLOGY WBC 3.9 K/CMM 3.7 - 10.4 02/06 [facility] HEMATOLOGY MCV 87.5 fL 80.0 - 02/06 [facility] [address] [facility] HEMATOLOGY RDW 13.6 % 11.5 - 02/06 [facility] [address] [facility] HEMATOLOGY MCHC 33.5 g/dL 32.0 - 02/06 [facility] [address] [facility] HEMATOLOGY MCH 29.3 pg 27.0 - 02/06 [facility] [address] [facility] HEMATOLOGY Hct 31.0 % 36.0 - 02/06 [facility] [address] [facility] HEMATOLOGY Hgb 10.4 g/dL 12.0 - 02/06 [facility] [address] [facility] ELECTROLYTE AGAP 14.4 meq/L 10.0 - 02/04 [facility] [address] [facility] ELECTROLYTE Sodium Lvl 136 meq/L 135 - 145 02/[address] [facility] ELECTROLYTE BUN 11 mg/dL 7 - 02/[address] [facility] ELECTROLYTE Creatinine 0.67 mg/dL 0.50 - 02/04 [facility] Lvl 1.40 [facility] ELECTROLYTE Glucose Lvl 94 mg/dL 70 - 99 02/[address] [facility] ELECTROLYTE Calcium Lvl 8.5 mg/dL 8.5 - 10.5 02/[address] [facility] ELECTROLYTE Chloride Lvl 105 meq/L 95 - 109 02/[address] [facility] ELECTROLYTE Potassium Lvl 4.4 meq/L 3.5 - 5.1 02/[address] [facility] ELECTROLYTE CO2 21 meq/L 24 - 32 02/[address] [facility] ELECTROLYTE eGFR 120 02/04 Result Comment: The eGFR is calculated using the CKD-EPI formula. In most young, healthy individuals the eGFR will be > 90 mL/min/1.73m2. The eGFR declines with age. An eGFR of 60-89 may be normal in [facility] mL/min/1.7 some populations, particularly the elderly, for whom the CKD-EPI formula has not been extensively validated. Use of the eGFR is not recommended in the following populations: [address] Individuals with unstable creatinine concentrations, including patients and those with serious co-morbid conditions. Patients with extremes in muscle mass or diet. The data above are obtained from the National Kidney Disease Education Program (NKDEP) which additionally recommends that when the eGFR is used in patients with extremes of body mass index for purposes of drug dosing, the eGFR should be multiplied by the estimated BMI. HEMATOLOGY Hct 32.1 % 36.0 - 02/[address] [facility] HEMATOLOGY Platelet 277 K/CMM 133 - 450 02/04 [facility] HEMATOLOGY MPV 9.2 fL 7.4 - 10.4 02/04 [facility] HEMATOLOGY RDW 13.7 % 11.5 - 02/04 [facility] [address] [facility] HEMATOLOGY MCH 28.8 pg 27.0 - 02/[address] [facility] HEMATOLOGY MCHC 32.6 g/dL 32.0 - 02/[address] [facility] HEMATOLOGY MCV 88.4 fL 80.0 - 02/[address] [facility] HEMATOLOGY WBC 8.1 K/CMM 3.7 - 10.4 02/04 [facility] HEMATOLOGY RBC 3.63 M/CMM 4.20 - 02/[address] [facility] HEMATOLOGY Hgb 10.5 g/dL 12.0 - 02/[address] [facility] HEMATOLOGY Lymphocytes # 0.6 K/CMM 1.0 - 5.5 02/04 [facility] HEMATOLOGY Basophils 0.4 % 0.0 - 1.0 02/04 [facility] HEMATOLOGY Segs-Bands # 6.7 K/CMM 1.5 - 8.1 02/04 [facility] HEMATOLOGY Monocytes # 0.7 K/CMM 0.0 - 0.8 02/04 [facility] HEMATOLOGY Monocytes 9.1 % 2.0 - 12.0 02/04 [facility] HEMATOLOGY Lymphocytes 7.6 % 20.0 - 02/[address] [facility] HEMATOLOGY Eosinophils 0.1 % 0.0 - 4.0 02/04 [facility] HEMATOLOGY Segs 82.8 % 45.0 - 02/[address] [facility] HEMATOLOGY Platelet 267 K/CMM 133 - 450 02/03 [facility] HEMATOLOGY MCH 28.7 pg 27.0 - 02/[address] [facility] HEMATOLOGY MCV 88.0 fL 80.0 - 02/[address] [facility] HEMATOLOGY RDW 13.6 % 11.5 - 02/[address] [facility] HEMATOLOGY MPV 8.6 fL 7.4 - 10.4 02/03 [facility] HEMATOLOGY MCHC 32.6 g/dL 32.0 - 02/[address] [facility] HEMATOLOGY Hct 36.3 % 36.0 - 02/[address] [facility] HEMATOLOGY Hgb 11.9 g/dL 12.0 - 02/03 [facility] [address] [facility] HEMATOLOGY RBC 4.13 M/CMM 4.20 - 02/03 [facility] 5.40 /2016 [facility] HEMATOLOGY WBC 5.5 K/CMM 3.7 - 10.4 02/[address] HEMATOLOGY Segs-Bands # 3.3 K/CMM 1.5 - 8.1 02/[address] [facility] HEMATOLOGY Basophils 0.6 % 0.0 - 1.0 02/03 [facility] HEMATOLOGY Monocytes # 0.6 K/CMM 0.0 - 0.8 02/[address] HEMATOLOGY Lymphocytes # 1.5 K/CMM 1.0 - 5.5 02/[address] HEMATOLOGY Eosinophils # 0.1 K/CMM 0.0 - 0.5 02/[address] HEMATOLOGY Eosinophils 1.4 % 0.0 - 4.0 02/[address] HEMATOLOGY Segs 59.7 % 45.0 - 02/03 [facility] [address] [facility] HEMATOLOGY Monocytes 11.2 % 2.0 - 12.0 02/[address] [place] [address] HEMATOLOGY Lymphocytes 27.1 % 20.0 - 02/03 [facility] [address] [facility] Ankle 2 Ankle 2 views EXAM: XR RIGHT ANKLE 2 VIEWS 02/03 - [facility] views DX DX - Medical This report was dictated by a Harbor Department Manager/Fellow. I have personally reviewed the images as Center well as the Resident's interpretation and agree with the findings. DATE: 02/03/2017 7:51 AM CDT Read by: Nino Martin Resident: Nino Martin (marah Dictated Date/time: 02/03/17 13:25 Electronically Signed by: Jony Guardado MD 02/03/17 14:22 FINAL REPORT INDICATION: Post op orif rt ankle - or 26 post op films COMPARISON: 01/17/2017 TECHNIQUE: AP and lateral radiographs of the ankle FINDINGS: Overlying splint material obscures bony detail. Interval open reduction internal fixation with plate and screws and interfragmentary screw transfixing the extensively comminuted pilon fracture with improved alignment. Fracture visibility is overall unchanged with minimal incongruity along the articular surface is noted. Transsyndesmotic fixation with 2 K wires traversing lateral to medial th rough the distal fibular fragment and talar body with improved alignment of the extensively comminuted distal fibular shaft fracture above and at the distal tibiofibular syndesmosis. Superior peroneal r etinacular avulsion fracture is similar to prior. Ankle mortise is congruent. External fixator pins traverses the mid tibia and calcaneus posteriorly. No hardware complication. Generalized soft tissue swelling about the visualized extremity. Expected small amounts of subcutaneous emphysema. IMPRESSION: Improved alignment of the extensively comminuted tibial pilon fracture and distal fibular fractures following open reduction internal fixation without complication. Ankle wo Ankle wo EXAM: CT RIGHT ANKLE WITHOUT CONTRAST, WITH 3-D 01/17 [facility] contrast contrast w/ - [facility] w/3D CT CT This report was dictated by a Harbor Department Manager/Fellow. I have personally reviewed the images as Center well as the Resident's interpretation and agree with the findings. DATE: 01/17/2017 2:54 PM CDT. Read by: Nevaeh Covington MD Resident: Nevaeh Covington MD Dictated Date/time: 01/18/17 00:07 Electronically Signed by: Toi Amaya 01/18/17 07:45 FINAL REPORT INDICATION: Fracture. COMPARISON: Right ankle radiograph on 01/17/2017 at 0556 hours. TECHNIQUE: Volumetric CT acquisition of the ankle without intravenous contrast. Axial, sagittal and coronal reconstructions. 3-D reconstructions were also obtained. IV contrast: None. DLP: 430 mGy-cm. FINDINGS: External fixation pins traverse the calcaneus and 1st metatarsal. TIBIA Severely comminuted, intra-articular pilon fracture of the distal tibia is again noted. There are at least 2 major fracture lines in the coronal and coronal oblique orientation. A large intra-articular punch fragment is seen centrally, measuring approximately 1.1 cm craniocaudal by 0.8 cm AP x 0.8 cm transverse, which is superiorly displaced from the joint line by approxima tely 2.3 cm. Large fracture fragments of the medial malleolus and the posterior malleolus are seen. There is marked comminution of the anterolateral aspect of the tibial plafond with multiple displaced fracture fragments. A large fracture fragment is displaced anterior to the distal fibula. Multiple small fracture fragments are seen in the region of the distal tibiofibular syndesmosis. A butterfly fra gment is seen medially at the superior to the medial malleolar fragment. There is 2 mm tibiotalar offset seen at the distal end of a posterior malleolar fracture. There is also 2 mm tibiotalar also seen at the distal end of the medial malleolar fracture. FIBULA A comminuted, segmental and displaced fracture of the distal fibula is seen with multiple fracture fragments, at and above the level of the syndesmosis. A in addition, there is a small fracture of the t ip of the lateral malleolus. Also seen is a peroneal sleeve avulsion fracture along the lateral aspect of the distal fibula. Multiple small fracture fragments are seen distal to the lateral malleolus, a nd in the fibulotalocalcaneal spaces, of uncertain donor site. HINDFOOT No definite fracture of the talus or calcaneus is identified. MIDFOOT No acute fracture or malalignment of the visible bones of the midfoot identified. Soft tissues: Diffuse soft tissue swelling is most pronounced about the distal and anterior aspects of the leg. Soft tissue calcifications are seen in the anterior distal leg. IMPRESSION: 1. Following placement of external fixation hardware, there has been improvement in the angulation and foreshortening of the distal tibial and fibular fractures. 2. Severely comminuted and displaced intra-articular pilon fracture of the distal tibia. 3. Comminuted, segmental, displaced distal fibular fracture, at and above the level of the syndesmosis. Fracture of the tip of the lateral malleolus, and peroneal sleeve avulsion fracture. 4. Multiple intra-articular fracture fragments in the ankle joint. Multiple fracture fragments in the fibulotalocalcaneal space and syndesmotic space. 5. Marked soft tissue swelling about the ankle and hindfoot. CHEM PANEL Lactic Acid 2.0 mMol/L 0.5 - 2.2 01/17 [facility] DRUG SCREEN UDS Note See Note 01/17 [facility] *NA* Center (01/17/17 11:49 AM) DRUG SCREEN U Opiate Scr Negative Negative 01/17 [facility] *NA* Center (01/17/17 11:49 AM) DRUG SCREEN U Phencyc Scr Negative Negative 01/17 [facility] *NA* [place] (01/17/17 11:49 AM) DRUG SCREEN U Benzodia Negative Negative 01/17 [place] Scr [facility] *NA* [place] (01/17/17 11:49 AM) DRUG SCREEN U Cannab Scr Negative Negative 01/17 [facility] *NA* [place] (01/17/17 11:49 AM) DRUG SCREEN U Cocaine Scr Negative Negative 01/17 [facility] *NA* [place] (01/17/17 11:49 AM) DRUG SCREEN U Nidhi [facility]r Negative Negative [facility] [place] (01/17/17 11:49 AM) DRUG SCREEN U Amph Scr Negative Negative [facility] [place] (01/17/17 11:49 AM) URINE AND UA Leuk Est Negative Negative 01/17 STOOL [facility] (01/17/17 11:49 AM) [place] URINE AND UA Color Yellow Yellow 01/17 [facility]* [place] (01/17/17 11:49 AM) URINE AND UA 0.2 EU/dL 0.1 - 1.0 01/17 [facility] Urobilinogen /2016 [facility] URINE AND UA Nitrite Negative Negative 01/17 [facility] STOOL [facility] (01/17/17 11:49 AM) [place] URINE AND UA Turbidity Clear Clear 01/17 [facility] STOOL [facility] (01/17/17 11:49 AM) [place] URINE AND UA Blood Negative Negative 01/17 [facility] (01/17/17 11:49 AM) [place] URINE AND UA Bili Negative Negative 01/17 [facility] [place] (01/17/17 11:49 AM) URINE AND UA Glucose Negative Negative 01/17 [facility] mg/dL mg/dL /2016 [facility] URINE AND UA Ketones Negative Negative 01/17 [facility] mg/dL mg/dL [facility] URINE AND UA Protein Negative Negative 01/17 [facility] mg/dL mg/dL [facility] URINE AND UA pH 6.5 5.0 - 8.0 01/17 [facility] [address]OOL [facility] URINE AND UA Spec Grav 1.010 <=1.030 01/17 [facility] [address]OOL [facility] URINE AND UA WBC 0-2 /HPF None Seen 01/17 [facility] STOOL /HPF [facility] URINE AND UA Sq Epi Moderate Few /LPF 01/17 [facility] STOOL /LPF [facility] URINE AND UA Mucus None Seen None Seen 01/17 [facility] (01/17/17 11:49 AM) [place] URINE AND UA Bacteria Occasional None Seen 01/17 [facility] STOOL /HPF /HPF [facility] URINE AND UA RBC 0-2 /HPF 0 - 2 01/17 [facility] CHEM PANEL eGFR 101 01/17 Result Comment: The eGFR is calculated using the CKD-EPI formula. In most young, healthy individuals the eGFR will be >90 mL/ min/1.73m2. The eGFR declines with age. An eGFR of 60-89 may be normal in [facility] mL/min/1. some populations, particularly the elderly, for whom the CKD-EPI formula has not been extensively validated. Use of the eGFR is not recommended in the following populations: [address] Individuals with unstable creatinine concentrations, including patients and those with serious co-morbid conditions. Patients with extremes in muscle mass or diet. The data above are obtained from the National Kidney Disease Education Program (NKDEP) which additionally recommends that when the eGFR is used in patients with extremes of body mass index for purposes of drug dosing, the eGFR should be multiplied by the estimated BMI. CHEM PANEL Creatinine 0.80 mg/dL 0.50 - 01/17 [facility] Lvl 1.40 [facility] CHEM PANEL Glucose Lvl 90 mg/dL 70 - 99 01/[address] [facility] CHEM PANEL BUN 9 mg/dL 7 - 22 01/17 [facility] CHEM PANEL Sodium Lvl 142 meq/L 135 - 145 01/17 [facility] CHEM PANEL Chloride Lvl 106 meq/L 95 - 109 01/17 [facility] CHEM PANEL Potassium Lvl 4.0 meq/L 3.5 - 5.1 01/[address] [facility] CHEM PANEL CO2 22 meq/L 24 - 32 01/[address] CHEM PANEL Calcium Lvl 8.4 mg/dL 8.5 - 10.5 01/17 [facility] CHEM PANEL AGAP 18.0 meq/L 10.0 - 01/17 [facility] 20.[address] [facility] CHEM PANEL Lactic Acid 2.4 mMol/L 0.5 - 2.2 01/17 [facility] Lvl [facility] ENDOCRINOLO S Preg Negative Negative 01/17 [facility] (01/17/17 10:35 AM) [place] HEMATOLOGY Monocytes # 0.7 K/CMM 0.0 - 0.8 01/17 [facility] HEMATOLOGY Lymphocytes # 1.2 K/CMM 1.0 - 5.5 01/17 [facility] HEMATOLOGY Segs-Bands # 6.8 K/CMM 1.5 - 8.1 01/17 [facility] HEMATOLOGY Basophils # 0.1 K/CMM 0.0 - 0.2 01/17 [facility] HEMATOLOGY Eosinophils 0.2 % 0.0 - 4.0 01/17 [facility] HEMATOLOGY Monocytes 8.2 % 2.0 - 12.0 01/[address] [place] [address] HEMATOLOGY Basophils 0.6 % 0.0 - 1.0 01/17 [facility] HEMATOLOGY Lymphocytes 14.1 % 20.0 - 01/[address] [facility] HEMATOLOGY Segs 76.9 % 45.0 - 01/[address] [facility] HEMATOLOGY Hct 36.6 % 36.0 - 01/[address] [facility] HEMATOLOGY Hgb 12.2 g/dL 12.0 - 01/[address] [facility] HEMATOLOGY MCH 29.7 pg 27.0 - 01/[address] [facility] HEMATOLOGY MCV 89.0 fL 80.0 - 01/[address] [facility] HEMATOLOGY Platelet 195 K/CMM 133 - 450 01/17 [facility] HEMATOLOGY RDW 13.8 % 11.5 - 01/[address] [facility] HEMATOLOGY MCHC 33.4 g/dL 32.0 - 01/[address] [facility] HEMATOLOGY RBC 4.11 M/CMM 4.20 - [address] [facility] HEMATOLOGY WBC 8.8 K/CMM 3.7 - 10.4 01/17 [facility] HEMATOLOGY MPV 9.4 fL 7.4 - 10.4 04/04 [facility] HEMATOLOGY R-time Rapid 0.6 min 0.4 - 0.7 01/17 [facility] HEMATOLOGY [place] 0.4 min 01/[address] [facility] HEMATOLOGY ACT (TEG) 105 s 86 - 118 01/[address] [facility] HEMATOLOGY K-time Rapid 0.8 min 0.6 - 2.3 01/17 [facility] HEMATOLOGY Angle Rapid 78 degrees 64 - 80 01/17 [facility] HEMATOLOGY Estimated % 0.7 % 0.0 - 7.5 01/17 [facility] Lysis [facility] HEMATOLOGY G-value Rapid 11.9 K 5.0 - 11.6 01/17 [facility] d/sc [facility] HEMATOLOGY Max Amplitude 70 mm 52 - 71 01/[address] [facility] BLOOD BANK Antibody Scrn Negative 01/17 [facility] (01/17/17 10:34 AM) [place] BLOOD BANK ABO/Rh A POS 01/[address] [facility] Torso-Outsi Torso-Outside 01/17 - [facility] de Consult Consult [facility] EXAM: CT head without contrast Read by: Andrew Saleem MD Dictated Date/time: 01/17/17 13:42 Electronically Signed by: Andrew Saleem MD 01/17/17 13:46 FINAL REPORT DATE: 01/17/2017 INDICATION: Trauma. FINDINGS: Noncontrast CT images of the head are performed at an outside institution and submitted for reinterpretation following transfer. There is no intracranial hemorrhage or other brain injury. Soft tissue swelling over the right forehead without any underlying fracture. IMPRESSION: Superficial injuries. Negative brain exam. Concur with outside report. Torso-Outsi Torso-Outside EXAM: CT CERVICAL SPINE WITHOUT CONTRAST 01/17 - [facility] de Consult Consult [facility] DATE: 01/17/2017 11:36 AM CDT Read by: Flako Johnson MD Dictated Date/time: 01/17/17 12:12 Electronically Signed by: Flako Johnson MD 01/17/17 12:16 FINAL REPORT INDICATION: - outside study ct c-spine for reinterpretation COMPARISON: None TECHNIQUE: Volumetric acquisition of the cervical spine without contrast. Axial, sagittal and coronal reconstructions. IV contrast: None. FINDINGS: The spine is imaged from the skull base to the level of T1. There is mild straightening and kyphosis of the cervical spine which could be secondary to spasm/c-collar. Alignment of spine is normal. Vertebral body and disc heights are preserved. No significant deg enerative changes. No acute fracture or malalignment. The pre and paravertebral soft tissues are within normal limits. There is no apical pneumothorax. IMPRESSION: 1. Mild straightening and kyphosis of the cervical spine which could be secondary to spasm/c-collar. 2. No acute fracture or malalignment the cervical spine. Torso-Outsi Torso-Outside EXAM: CT CHEST WITH CONTRAST 01/17 - [facility] Consult Consult - Medical CT EXAM: CT ABDOMEN AND PELVIS WITH CONTRAST This report was dictated by a [place] Department Manager/Fellow. I have personally reviewed the images as Center well as the Resident's interpretation and agree with the findings. Read by: Adolfo Chowdhury MD Resident: Adolfo Chowdhury MD Dictated Date/time: 01/17/17 11:47 DATE: 01/17/2017 11:36 AM CDT Electronically Signed by: Flako Johnson MD 01/17/17 12:25 FINAL REPORT INDICATION: outside study CT CAP -W COMPARISON: None. TECHNIQUE: 412 images of the chest, abdomen and pelvis with limited sagittal and coronal reformats were obtained at [facility] on 01/17/2017 and submitted for second interpretation. [place] SECTION: ER FINDINGS: Lower Neck: Visible portions unremarkable. Thoracic Aorta and Mediastinum: No mediastinal hematoma or thoracic aortic injury. Lungs and Pleura: Calcified granuloma seen in the posterior right lower lobe. The lungs are otherwise clear. No contusions. No pleural fluid or pneumothorax. Hepatobiliary: Normal. Gallbladder: No injury. Spleen: Normal. Pancreas: Normal. Adrenals: Normal. Kidneys: Normal. Bladder: Partially visualized. Reproductive Organs: No injury. Gastrointestinal Tract: No injury. Peritoneum and Retroperitoneum: No fluid collections or free air. Abdominal/Pelvic Vasculature: No vascular injury. Lymphadenopathy: None. Spine/Bones: No acute abnormality of the spine. No other bony injury. Please note that pelvis is incompletely included in the study Soft Tissues: Unremarkable. IMPRESSION: No acute traumatic abnormality. Vital Signs Vital Sign Value Date Comments Source Systolic (mm Hg) 108 12/16/2017 [facility] Diastolic (mm Hg) 75 12/16/2017 [facility] Respitory Rate 18 12/16/2017 [facility] Temperature Oral (F) 97.9 F 12/16/2017 [facility] Heart Rate 86 12/16/2017 [facility] Respitory Rate 17 12/16/2017 [facility] Systolic (mm Hg) 97 12/16/2017 [facility] Diastolic (mm Hg) 66 12/16/2017 [facility] Heart Rate 92 12/16/2017 [facility] Temperature Oral (F) 97.9 F 12/16/2017 [facility] Temperature Oral (F) 98.1 F 12/16/2017 [facility] Systolic (mm Hg) 110 12/16/2017 [facility] Diastolic (mm Hg) 68 12/16/2017 [facility] Heart Rate 74 12/16/2017 [facility] Respitory Rate 18 12/16/2017 [facility] Weight 102.273 12/14/2017 [facility] BMI Calculated 42.6 12/14/2017 [facility] Height 154.94 cm 12/14/2017 [facility] Systolic (mm Hg) 114 03/17/2017 [facility] Diastolic (mm Hg) 75 03/17/2017 [facility] Respitory Rate 16 03/17/2017 [facility] Systolic (mm Hg) 124 03/17/2017 [facility] Diastolic (mm Hg) 73 03/17/2017 [facility] Respitory Rate 19 03/17/2017 [facility] Systolic (mm Hg) 121 03/17/2017 [facility] Diastolic (mm Hg) 67 03/17/2017 [facility] Respitory Rate 17 03/17/2017 [facility] BMI Calculated 41.24 03/17/2017 [facility] Weight 102.273 03/17/2017 [facility] Height 157.48 cm 03/17/2017 [facility] Heart Rate 90 03/17/2017 [facility] Weight 104.545 03/16/2017 [facility] BMI Calculated 42.16 03/16/2017 [facility] Height 157.48 cm 03/16/2017 [facility] Heart Rate 90 02/06/2017 [facility] Systolic (mm Hg) 114 02/06/2017 [facility] Diastolic (mm Hg) 77 02/06/2017 [facility] Respitory Rate 18 02/06/2017 [facility] Temperature Oral (F) 98.5 F 02/06/2017 [facility] Respitory Rate 16 02/06/2017 [facility] Heart Rate 81 02/06/2017 [facility] Systolic (mm Hg) 103 02/06/2017 [facility] Diastolic (mm Hg) 71 02/06/2017 [facility] Systolic (mm Hg) 110 02/06/2017 [facility] Diastolic (mm Hg) 70 02/06/2017 [facility] Heart Rate 73 02/06/2017 [facility] Respitory Rate 18 02/06/2017 [facility] Temperature Oral (F) 97.7 F 02/06/2017 [facility] Temperature Oral (F) 98.2 F 02/06/2017 [facility] Weight 110.45 02/03/2017 [facility] Weight 110.455 02/03/2017 [facility] BMI Calculated 44.54 02/03/2017 [facility] Height 157.48 cm 02/03/2017 [facility] Weight 110.455 02/01/2017 [facility] BMI Calculated 44.54 02/01/2017 [facility] Height 157.48 cm 02/01/2017 [facility] Heart Rate 79 01/19/2017 [facility] Temperature Oral (F) 98.6 F 01/19/2017 [facility] Systolic (mm Hg) 106 01/19/2017 [facility] Diastolic (mm Hg) 71 01/19/2017 [facility] Respitory Rate 19 01/19/2017 [facility] Respitory Rate 19 01/19/2017 [facility] Heart Rate 78 01/19/2017 [facility] Systolic (mm Hg) 106 01/19/2017 [facility] Diastolic (mm Hg) 68 01/19/2017 [facility] Temperature Oral (F) 98.7 F 01/19/2017 [facility] Systolic (mm Hg) 116 01/19/2017 [facility] Diastolic (mm Hg) 73 01/19/2017 [facility] Respitory Rate 19 01/19/2017 [facility] Heart Rate 88 01/19/2017 [facility] Temperature Oral (F) 98 F 01/19/2017 [facility] BMI Calculated 44.35 01/17/2017 [facility] Height 157.48 cm 01/17/2017 [facility] Weight 110 01/17/2017 [facility] BMI Calculated 44.76 01/17/2017 [facility] Weight 111 01/17/2017 [facility] Height 157.48 cm 01/17/2017 [facility] Encounters Location Location Encounter Encounter Reason Attending ADM DC Status Source Details Type Number For Provider Date Date Visit [facility] [id number] Chris 01/17 01/19 [facility] Ran /2016 [facility] [id number] Joseph 02/03 02/06 [facility] /2016 [facility] Day [id number] Joseph 03/17 03/18 [facility] Surgery Andrés /2016 [facility] Inpatient [id number] [place] 12/14 12/16 [facility] Gauvzuly /2017 [facility] Procedures Procedure Code Date Perfomer Comments Source Assess fracture [id number] X2 HARDWARE [facility] care<sup>1</sup> [facility] Bilateral tubal [id number] 3YRS [facility] ligation<sup>2</sup AGO01/07/2014 Medical > Center Dissection [id number] [facility] tonsillectomy [facility] Examination of [id number] LT FOOT [facility] joint of SURGERY IN THE Medical foot<sup>3</sup> CHILDHOOD,STSG Center Bilateral tubal [id number] 3YRS [facility] ligation<sup>1</sup AGO01/07/2014 Medical > Center Examination of [id number] LT FOOT [facility] joint of SURGERY IN THE Medical foot<sup>2</sup> CHILDHOOD,STSG Center
--- OUTSIDE RECORDS SUMMARY | 2018-08-09 03:32 | XMS REPORT | Summary of Care ---
:1990 Author Organization [facility] Address [address] [place] [id number] Encounter [facility] Shaq(FIN) [id number] Date(s): 03/17/17 - 03/17/[address] [address]- [place] Discharge Disposition: Home or Self Care Attending Physician: Joseph Bowen MD Referring Physician: Joseph Bowen MD Vital Signs Most recent to oldest [Reference 1 2 3 Range]: Height 157.48 cm 157.48 cm (03/17/17 10:10 AM) (03/16/17 2:50 PM) Blood Pressure [90-140/60-90 114/75 mmHg 124/73 mmHg 121/67 mmHg mmHg] (03/17/17 3:22 PM) (03/17/17 2:15 PM) (03/17/17 2:00 PM) Respiratory Rate [14-20 BRMIN] 16 BRMIN 19 BRMIN 17 BRMIN (03/17/17 3:22 PM) (03/17/17 2:15 PM) (03/17/17 2:00 PM) Peripheral Pulse Rate [60-100 90 bpm bpm] (03/17/17 10:10 AM) Weight 102.273 kg 104.545 kg (03/17/17 10:10 AM) (03/16/17 2:50 PM) Body Mass Index 41.24 m2 42.16 m2 (03/17/17 10:10 AM) (03/16/17 2:50 PM) Problem List Condition Effective Dates Status Health Status Informant Pilon fracture(Confirmed)1 Active 1right Allergies, Adverse Reactions, Alerts Substance Reaction Severity Status codeine sulfate Active HYDROcodone Active Plastic Tape Active traMADol Active Medications acetaminophen (ANES) (ANES) Route: IV, Drug form: INJ, Start date: 03/17/17 12:45:00 CDT, Stop date: 13:45:00 CDT Start Date: 03/17/17 Stop Date: 03/17/17 Status: CompletedANES flumazenil 0.2 mg, 2 mL, Route: IVP, Drug form: INJ, PRN, Dosing Weight 102.273, kg, PRN Benzodiazepine Reversal, Initial dose, Start date: 03/17/17 13:42:00 CDT, Duration: 1 day, Stop date: 03/18/17 13:41:00 CDT Notes: (Same as: Romazicon) Start Date: 03/17/17 Stop Date: 03/18/17 Status: DiscontinuedANES HYDROmorphone 0.5 mg, 0.25 mL, Route: IVP, Drug form: INJ, Q5Min, Dosing Weight 102.273, kg, PRN Pain Score 7-10, Start date: 03/17/17 13:42:00 CDT, Duration: 4 doses or times, Stop date: Limited # of times Notes: Same as: Dilaudid Start Date: 03/17/17 Stop Date: 03/18/17 Status: DiscontinuedANES naloxone 0.4 mg, 1 mL, Route: IVP, Drug form: INJ, Q2MIN, Dosing Weight 102.273, kg, PRN Narcotic Reversal, Start date: 03/17/17 13:42:00 CDT, Duration: 8 doses or times , Stop date: Limited # of times Notes: Same as Narcan Start Date: 03/17/17 Stop Date: 03/18/17 Status: DiscontinuedANES ondansetron 4 mg, 2 mL, Route: IVP, Drug form: INJ, ONCE, Dosing Weight 102.273, kg, PRN Nausea & Vomiting, Start date: 03/17/17 13:42:00 CDT Notes: (Same as: Blake) MEDICATION WASTE Product Size: 4 mgProduct Wasted: ___ mg Start Date: 03/17/17 Stop Date: 03/18/17 Status: DiscontinuedANES promethazine 6.25 mg, 0.25 mL, Route: IVPB, Drug form: INJ, ONCE, Dosing Weight 102.273, kg, PRN Nausea & Vomiting, Start date: 03/17/17 13:42:00 CDT Notes: Do not give IV push. (Same as: Phenergan) Start Date: 03/17/17 Stop Date: 03/18/17 Status: DiscontinuedceFAZolin 2 gm, 100 mL, Route: IVPB, Drug form: INJ, PRE OP, Start date: 03/16/17 23:00: 00 CDT, Duration: 1 day, Stop date: 03/17/17 22:59:00 CDT, ABX Indication: Surgical Prophylaxis Notes: Same as: Ancef Start Date: 03/16/17 Stop Date: 03/17/17 Status: CompletedceFAZolin (ANES) (ANES) Route: IV, Drug form: INJ, Start date: 03/17/17 12:37:00 CDT, Stop date: 13:37:00 CDT Start Date: 03/17/17 Stop Date: 03/17/17 Status: Completeddexamethasone (ANES) Route: IV, Drug form: INJ, ONCE, Stop date: 03/17/17 13:20:00 CDT Start Date: 03/17/17 Stop Date: 03/17/17 Status: CompletedfentaNYL (ANES) Route: IV, Drug form: INJ, ONCE, Stop date: 03/17/17 13:20:00 CDT Start Date: 03/17/17 Stop Date: 03/17/17 Status: CompletedketOROLAC (ANES) IV, ONCE Start Date: 03/17/17 Stop Date: 03/17/17 Status: Completedlidocaine (ANES) Route: IV, Drug form: INJ, ONCE, Stop date: 03/17/17 13:20:00 CDT Start Date: 03/17/17 Stop Date: 03/17/17 Status: CompletedLR 1000 mL INJ (ANES) Route: IV, Total Volume: 1,000, Start date: 03/17/17 12:22:00 CDT, Stop date: 13:22:00 CDT Start Date: 03/17/17 Stop Date: 03/17/17 Status: Completedmidazolam (ANES) Route: IV, Drug form: SOLN, ONCE, Stop date: 03/17/17 13:17:00 CDT Start Date: 03/17/17 Stop Date: 03/17/17 Status: Completedondansetron (ANES) Route: IV, Drug form: INJ, ONCE, Stop date: 03/17/17 13:20:00 CDT Start Date: 03/17/17 Stop Date: 03/17/17 Status: Completedpropofol (ANES) Route: IV, Drug form: INJ, ONCE, Stop date: 03/17/17 13:20:00 CDT Start Date: 03/17/17 Stop Date: 03/17/17 Status: Completedpropofol (ANES) (ANES) Route: IV, Drug form: INJ, Start date: 03/17/17 13:05:00 CDT, Stop date: 14:05:00 CDT Start Date: 03/17/17 Stop Date: 03/17/17 Status: Completed Results No data available for this section Immunizations Given and Recorded Vaccine Date Status Refusal Reason pneumococcal 23-valent vaccine 01/18/17 Given Procedures Procedure Date Related Diagnosis Body Site Assess fracture care1 Bilateral tubal ligation2 Dissection tonsillectomy Examination of joint of foot3 1X2 HARDWARE [id number] AGO01/07/20143LT FOOT SURGERY IN THE CHILDHOOD,STSG Social History Social History Type Response Substance Abuse Use: None. Alcohol Past, Type Beer, Liquor. Frequency: 1-2 times per month. Previous treatment: None. Smoking Status Current every day smoker; Type: Cigarettes; Tobacco use per day : 8; Ready to change: No; Concerns about tobacco use in household: No; Exposure to Tobacco Smoke None; Cigarette Smoking Last 365 Days Yes; Reg Smoking Cessation Counseling No1 1QUIT January Assessment and Plan Extracted from: Title: Ortho Trauma Preop H&P Author: Maribel Strange Date: 03/16/17 ORTHOPAEDIC TRAUMA HISTORY AND PHYSICAL EXAMINATION Present Complaint: R closed displaced pilon fx PAST HISTORY Pertinent Surgeries: - 01/17/2017: - CR wth manipulation, ex-fix application, R pilon fx - 02/03/2017: - ORIF, L pilon fx, tibia and fibula - Revision ex-fix, LLE Pertinent Medical Illness: - Denies Current Medications: See nursing notes Allergies: - codeine, hydrocodone, tramadol Smoking: - Daily Alcohol: - Socially PHYSICAL EXAMINATION Vital Signs: See nursing notes General: AAO and in NAD Pertinent Lab: Per anesthesia guidelines HEENT: Head AT/NC. Sclerae anicteric. Torso/Breast: No gross deformity Heart: DP palpable. CR brisk. Lungs: Breathing non-labored. No audible wheezes. Abdomen: No gross deformity Pelvic/Rectal: Deferred Extremities: - RLE: Ex-fix intact. SILT DP/SP/T. +EHL/FHL. DP palpable Neurological: See above IMPRESSIONS: - R closed displaced pilon fx TREATMENT PLAN: - To OR 03/17/2017 for ex-fix removal, EUA, buried pin removal, all indicated procedures to the R pilon and RLE.
--- OUTSIDE RECORDS SUMMARY | 2018-08-09 03:32 | XMS REPORT | Summary of Care ---
:1990 Author Organization [facility] Address [address], [place] [address]- Encounter HQ Encntr_rufina(FIN) [id number] Date(s): 02/03/17 - 02/06/[address] Professional Services provided by [facility] [place] [address]- Discharge Disposition: Home or Self Care Attending Physician: Joseph Bowen MD Admitting Physician: Joseph Bowen MD Referring Physician: Joseph Bowen MD Vital Signs Most recent to oldest 1 2 3 [Reference Range]: Height 157.48 cm 157.48 cm (02/03/17 6:41 AM) (02/01/17 9:49 AM) Temperature Oral [96.4-99.1 98.5 DegF 97.7 DegF 98.2 DegF DegF] (02/06/17 7:14 AM) (02/06/17 3:12 AM) (02/05/17 11:15 PM) Blood Pressure [90-140/60-90 114/77 mmHg 103/71 mmHg 110/70 mmHg mmHg] (02/06/17 11:21 AM) (02/06/17 7:14 AM) (02/06/17 3:12 AM) Respiratory Rate [14-20 18 BRMIN 16 BRMIN 18 BRMIN BRMIN] (02/06/17 11:21 AM) (02/06/17 7:14 AM) (02/06/17 3:12 AM) Peripheral Pulse Rate [60-100 90 bpm 81 bpm 73 bpm bpm] (02/06/17 11:21 AM) (02/06/17 7:14 AM) (02/06/17 3:12 AM) Weight 110.45 kg 110.455 kg 110.455 kg (02/03/17 5:08 PM) (02/03/17 6:41 AM) (02/01/17 9:49 AM) Body Mass Index 44.54 m2 44.54 m2 (02/03/17 6:41 AM) (02/01/17 9:49 AM) Problem List Condition Effective Dates Status Health Status Informant Pilon fracture(Confirmed) Active Allergies, Adverse Reactions, Alerts Substance Reaction Severity Status codeine sulfate Active HYDROcodone Active Plastic Tape Active traMADol Active Medications acetaminophen 650 mg, Route: PO, Drug form: TAB, Q4H, Dosing Weight 110.455, kg, PRN Pain 1-3/ Temp > 100.4 F, Start date: 02/03/17 12:36:00 CDT, Duration: 30 day, Stop date: 03/05/17 12:35:00 CDT Start Date: 02/03/17 Stop Date: 02/03/17 Status: Discontinuedacetaminophen 1,000 mg, 2 tab, Route: PO, Drug form: TAB, Q6H, Dosing Weight 110.455, kg, Start date: 02/03/17 18:00:00 CDT, Duration: 30 day, Stop date: 03/05/17 12:00: 00 CDT Notes: Max acetaminophen 4000 mg/day (4 gm/day). (Same as: Tylenol Extra Strength) Start Date: 02/03/17 Stop Date: 02/06/17 Status: Discontinuedacetaminophen (ANES) (ANES) Route: IV, Drug form: INJ, Start date: 02/03/17 8:14:00 CDT, Stop date: 9:14:00 CDT Start Date: 02/03/17 Stop Date: 02/03/17 Status: Completedacetaminophen 500 mg oral tablet See Instructions, PRN as needed for pain, 1-2 tab PO Q6H not to exceed 4000 mg/ day, # 50 tab, 0 Refill(s) Start Date: 02/06/17 Stop Date: 02/07/17 Status: Completedalbuterol (ANES) Route: INHALATION, Drug form: AERO/A, ONCE, Stop date: 02/03/17 12:06:00 CDT Start Date: 02/03/17 Stop Date: 02/03/17 Status: CompletedANES flumazenil 0.2 mg, 2 mL, Route: IVP, Drug form: INJ, PRN, Dosing Weight 110.455, kg, PRN Benzodiazepine Reversal, Initial dose, Start date: 02/03/17 12:34:00 CDT, Duration: 30 day, Stop date: 03/05/17 12:33:00 CDT Notes: (Same as: Romazicon) Start Date: 02/03/17 Stop Date: 02/03/17 Status: DiscontinuedANES HYDROmorphone 0.5 mg, Route: IVP, Q5Min, Dosing Weight 110.455, kg, PRN Pain Score 7-10, Start date: 02/03/17 12:34:00 CDT, Duration: 4 doses or times, Stop date: Limited # of times Start Date: 02/03/17 Stop Date: 02/03/17 Status: CompletedANES naloxone 0.4 mg, 1 mL, Route: IVP, Drug form: INJ, Q2MIN, Dosing Weight 110.455, kg, PRN Narcotic Reversal, Start date: 02/03/17 12:34:00 CDT, Duration: 8 doses or times , Stop date: Limited # of times Notes: Same as Narcan Start Date: 02/03/17 Stop Date: 02/03/17 Status: DiscontinuedANES ondansetron 4 mg, 2 mL, Route: IVP, Drug form: INJ, ONCE, Dosing Weight 110.455, kg, PRN Nausea & Vomiting, Start date: 02/03/17 12:34:00 CDT Notes: (Same as: Blake) MEDICATION WASTE Product Size: 4 mgProduct Wasted: ___ mg Start Date: 02/03/17 Stop Date: 02/03/17 Status: DiscontinuedANES oxyCODONE 10 mg, 2 tab, Route: PO, Drug form: TAB, Q4H, Dosing Weight 110.455, kg, PRN Pain Score 7-10, Start date: 02/03/17 12:34:00 CDT, Duration: 1 day, Stop date: 02/04/17 12:33:00 CDT Notes: (Same as: Roxicodone) Start Date: 02/03/17 Stop Date: 02/03/17 Status: DiscontinuedANES oxyCODONE 5 mg, 1 tab, Route: PO, Drug form: TAB, Q4H, Dosing Weight 110.455, kg, PRN Pain Score 4-6, Start date: 02/03/17 12:34:00 CDT, Duration: 1 day, Stop date: 02/04/17 12:33:00 CDT Notes: (Same as: Roxicodone) Start Date: 02/03/17 Stop Date: 02/03/17 Status: Discontinuedaspirin 325 mg tablet, enteric coated 325 mg=1 tab, PO, Daily, Do not take in combination with Lovenos, # 18 tab, 0 Refill(s) Start Date: 02/06/17 Status: OrderedceFAZolin 2 gm, 100 mL, Route: IVPB, Drug form: INJ, PRE OP, Start date: 02/02/17 23:00: 00 CDT, Duration: 1 day, Stop date: 02/03/17 22:59:00 CDT Notes: Same as: Ancef Start Date: 02/02/17 Stop Date: 02/06/17 Status: DiscontinuedceFAZolin (ANES) Route: IV, Drug form: INJ, ONCE, Stop date: 02/03/17 8:34:00 CDT Start Date: 02/03/17 Stop Date: 02/03/17 Status: CompletedceFAZolin (SCIP) + sodium chloride 0.9% INJ 100 mL 2 gm, Route: IVPB, Drug form: INJ, ABXQ8H, Dosing Weight 110.455, kg, Start date : 02/03/17 20:00:00 CDT, Duration: 3 doses or times, Stop date: 02/04/17 12:00: 00 CDT Notes: (Same As: Ángel, Debra)Cefazolin FOR IV SET ONLY MEDICATION WASTE Product Size:1000 mgProduct Wasted: ___ mg Start Date: 02/03/17 Stop Date: 02/04/17 Status: Completeddexamethasone (ANES) Route: IV, Drug form: INJ, ONCE, Stop date: 02/03/17 9:59:00 CDT Start Date: 02/03/17 Stop Date: 02/03/17 Status: Completeddocusate sodium 100 mg oral capsule 100 mg, 1 cap, Route: PO, Drug form: CAP, BID, Dosing Weight 110.455, kg, Start date: 02/03/17 17:00:00 CDT, Duration: 30 day, Stop date: 03/05/17 9:00:00 CDT Notes: (Same as: Colace) (Do Not Crush) Start Date: 02/03/17 Stop Date: 02/06/17 Status: Discontinueddocusate sodium 100 mg oral capsule 100 mg=1 cap, PO, Q12H, PRN as needed for constipation, # 28 cap, 0 Refill(s) Start Date: 02/06/17 Stop Date: 02/20/17 Status: OrderedfentaNYL (ANES) Route: IV, Drug form: INJ, ONCE, Stop date: 02/03/17 8:39:00 CDT Start Date: 02/03/17 Stop Date: 02/03/17 Status: Completedgabapentin 300 mg oral capsule 600 mg, 2 cap, Route: PO, Drug form: CAP, Q8H, Dosing Weight 110.455, kg, (CrCl > 60 ml/min), Start date: 02/03/17 16:00:00 CDT, Stop date: 03/05/17 8:00:00 CDT Notes: (Same as: Neurontin) Start Date: 02/03/17 Stop Date: 02/05/17 Status: Discontinuedgabapentin 300 mg oral capsule 600 mg=2 cap, PO, Q8H, # 60 cap, 0 Refill(s) Start Date: 02/06/17 Status: Orderedgabapentin 300 mg oral capsule 900 mg, 3 cap, Route: PO, Drug form: CAP, Q8H, Dosing Weight 110.455, kg, (CrCl > 60 ml/min), Start date: 02/05/17 16:00:00 CDT, Duration: 30 day, Stop date: 8:00:00 CDT Notes: (Same as: Neurontin) Start Date: 02/05/17 Stop Date: 02/06/17 Status: Discontinuedglycopyrrolate (ANES) Route: IV, Drug form: INJ, ONCE, Stop date: 02/03/17 12:10:00 CDT Start Date: 02/03/17 Stop Date: 02/03/17 Status: Completedhydromorphone (ANES) Route: IV, Drug form: INJ, ONCE, Stop date: 02/03/17 11:49:00 CDT Start Date: 02/03/17 Stop Date: 02/03/17 Status: CompletedLactated Ringers 1,000 mL 1,000 mL, Rate: 125 ml/hr, Infuse over: 8 hr, Route: IV, Dosing Weight 110.455 kg, Total Volume: 1,000, Start date: 02/03/17 12:36:00 CDT, Duration: 30 day, Stop date: 03/05/17 12:35:00 CDT Start Date: 02/03/17 Stop Date: 02/06/17 Status: Discontinuedlidocaine (ANES) Route: IV, Drug form: INJ, ONCE, Stop date: 02/03/17 8:39:00 CDT Start Date: 02/03/17 Stop Date: 02/03/17 Status: CompletedLovenox 30 mg, 0.3 mL, Route: SUB-Q, Drug form: INJ, Q12H, Dosing Weight 110.455, kg, Start date: 02/03/17 15:00:00 CDT, Duration: 30 day, Stop date: 03/05/17 4:00: 00 CDT Notes: (Same as: Lovenox) Start Date: 02/03/17 Stop Date: 02/06/17 Status: DiscontinuedLR 1000 mL INJ (ANES) Route: IV, Total Volume: 1,000, Start date: 02/03/17 7:30:00 CDT, Stop date: 8:30:00 CDT Start Date: 02/03/17 Stop Date: 02/03/17 Status: Completedmethocarbamol 1,000 mg, 2 tab, Route: PO, Drug form: TAB, Q8H, Dosing Weight 110.455, kg, Start date: 02/04/17 0:00:00 CDT, Duration: 30 day, Stop date: 03/07/17 8:00:00 CDT Notes: (Same as:Robaxin) Start Date: 02/04/17 Stop Date: 02/06/17 Status: Discontinuedmethocarbamol 500 mg oral tablet See Instructions, PRN as needed for spasm, 1-2 tab PO Q8H, # 40 cap, 0 Refill(s) Start Date: 02/06/17 Stop Date: 02/07/17 Status: Completedmidazolam (ANES) Route: IV, Drug form: SOLN, ONCE, Stop date: 02/03/17 8:34:00 CDT Start Date: 02/03/17 Stop Date: 02/03/17 Status: Completedneostigmine (ANES) Route: IV, Drug form: INJ, ONCE, Stop date: 02/03/17 12:10:00 CDT Start Date: 02/03/17 Stop Date: 02/03/17 Status: CompletedOfirmev 1,000 mg, 100 mL, Route: IV, Drug form: INJ, Q6H, Dosing Weight 110.455, kg, Start date: 02/03/17 18:00:00 CDT, Duration: 2 day, Stop date: 02/05/17 12:00: 00 CDT Notes: Infuse over 15 minutesDo not exceed 4gm/day of acetaminophen MEDICATION WASTE ProductSize: 1000 mgProduct Wasted: ___ mg Start Date: 02/03/17 Stop Date: 02/03/17 Status: Canceledondansetron 4 mg, 2 mL, Route: IVP, Drug form: INJ, Q6H, Dosing Weight 110.455, kg, PRN Nausea & Vomiting, Start date: 02/03/17 12:36:00 CDT, Duration: 30 day, Stop date: 03/05/17 12:35:00 CDT Notes: (Same as: Blake) MEDICATION WASTE Product Size: 4 mgProduct Wasted: ___ mg Start Date: 02/03/17 Stop Date: 02/06/17 Status: Discontinuedondansetron (ANES) Route: IV, Drug form: INJ, ONCE, Stop date: 02/03/17 11:59:00 CDT Start Date: 02/03/17 Stop Date: 02/03/17 Status: CompletedoxyCODONE 5 mg immediate release 10 mg, 2 tab, Route: PO, Drug form: TAB, Q4H, Dosing Weight 110.455, kg, PRN Pain Score 7-10, Start date: 02/03/17 16:28:00 CDT, Duration: 30 day, Stop date : 03/05/17 16:27:00 CDT Notes: (Same as: Roxicodone) Start Date: 02/03/17 Stop Date: 02/06/17 Status: DiscontinuedoxyCODONE 5 mg immediate release 5 mg, 1 tab, Route: PO, Drug form: TAB, Q4H, Dosing Weight 110.455, kg, PRN Pain Score 4-6, Start date: 02/03/17 16:28:00 CDT, Duration: 30 day, Stop date: 03/05/17 16:27:00 CDT Notes: (Same as: Roxicodone) Start Date: 02/03/17 Stop Date: 02/06/17 Status: DiscontinuedoxyCODONE 5 mg oral tablet 5 mg, 1 tab, Route: PO, Drug form: TAB, ONCE, Dosing Weight 110.45, kg, Priority : NOW, Start date: 02/04/17 21:50:00 CDT, Stop date: 02/04/17 21:50:00 CDT Notes: (Same as: Roxicodone) Start Date: 02/04/17 Stop Date: 02/04/17 Status: Completedpropofol (ANES) Route: IV, Drug form: INJ, ONCE, Stop date: 02/03/17 8:39:00 CDT Start Date: 02/03/17 Stop Date: 02/03/17 Status: Completedrocuronium (ANES) Route: IV, Drug form: INJ, ONCE, Stop date: 02/03/17 8:39:00 CDT Start Date: 02/03/17 Stop Date: 02/03/17 Status: Completedropivacaine 0.2% 200ml CADD 200 mL Route: NERVE BLOCK, Continuous Rate: 8, ml/hr, Dosing Site: Sciatic popliteal Side: Right, EELER dose 5 mL, EELER dose lockout: 30 minutes, 1 Hour limit: 18 mL, 200, mL, Start date: 02/03/17 13:06:00 CDT, Drug Form: INJ, Total volume: 200, mL, kg, Stop da... Notes: Same as: Naropin Start Date: 02/03/17 Stop Date: 02/06/17 Status: DiscontinuedRopivacaine 0.2% 400ML OnQ CB004 400 mL Route: NERVE BLOCK, Start date: 02/06/17 8:36:00 CDT 400 mL, Drug Form: INJ, Dosing Weight 110.45, kg, Duration: 30 day, Stop date: 03/08/17 8:35:00 CDT, 8 ml/hr Notes: Final concentration: Ropivacaine 0.2% 400 ml Start Date: 02/06/17 Stop Date: 02/06/17 Status: Discontinued Results ELECTROLYTES Most recent to oldest [Reference Range]: 1 2 3 Sodium Lvl [135-145 mEq/L] 136 mEq/L (02/04/17 12:31 AM) Potassium Lvl [3.5-5.1 mEq/L] 4.4 mEq/L (02/04/17 12:31 AM) Chloride Lvl [95-109 mEq/L] 105 mEq/L (02/04/17 12:31 AM) CO2 [24-32 mEq/L] 21 mEq/L *LOW* (02/04/17 12:31 AM) AGAP [10.0-20.0 mEq/L] 14.4 mEq/L (02/04/17 12:31 AM) CHEM PANEL Most recent to oldest [Reference Range]: 1 2 3 Creatinine Lvl [0.50-1.40 mg/dL] 0.67 mg/dL (02/04/17 12:31 AM) eGFR 120 mL/min/1.73m2 1 *NA* (02/04/17 12:31 AM) BUN [7-22 mg/dL] 11 mg/dL (02/04/17 12:31 AM) Glucose Lvl [70-99 mg/dL] 94 mg/dL (02/04/17 12:31 AM) Calcium Lvl [8.5-10.5 mg/dL] 8.5 mg/dL (02/04/17 12:31 AM) 1Result Comment: The eGFR is calculated using the CKD-EPI formula. In most young , healthy individualsthe eGFR will be >90 mL/min/1.73m2. The eGFR declines with age. An eGFR of 60-89 may be normal in some populations, particularly the elderly, for whom the CKD-EPI formula has not been extensively validated. Use of the eGFR is not recommended in the following populations: Individuals with unstable creatinine concentrations, including patients and those with serious co-morbid conditions. Patients with extremes in muscle mass or diet. The data above are obtained from the National Kidney Disease Education Program ( NKDEP) which additionally recommends that when the eGFR is used in patients with extremes of body mass index for purposesof drug dosing, the eGFR should be multiplied by the estimated BMI.HEMATOLOGY Most recent to oldest 1 2 3 [Reference Range]: WBC [3.7-10.4 K/CMM] 3.9 K/CMM 8.1 K/CMM 5.5 K/CMM (02/06/17 4:51 AM) (02/04/17 12:31 AM) (02/03/17 6:50 AM) RBC [4.20-5.40 M/CMM] 3.54 M/CMM 3.63 M/CMM 4.13 M/CMM *LOW* *LOW* *LOW* (02/06/17 4:51 AM) (02/04/17 12:31 AM) (02/03/17 6:50 AM) Hgb [12.0-16.0 g/dL] 10.4 g/dL 10.5 g/dL 11.9 g/dL *LOW* *LOW* *LOW* (02/06/17 4:51 AM) (02/04/17 12:31 AM) (02/03/17 6:50 AM) Hct [36.0-48.0 %] 31.0 % 32.1 % 36.3 % *LOW* *LOW* (02/03/17 6:50 AM) (02/06/17 4:51 AM) (02/04/17 12:31 AM) MCV [80.0-98.0 fL] 87.5 fL 88.4 fL 88.0 fL (02/06/17 4:51 AM) (02/04/17 12:31 AM) (02/03/17 6:50 AM) MCH [27.0-31.0 pg] 29.3 pg 28.8 pg 28.7 pg (02/06/17 4:51 AM) (02/04/17 12:31 AM) (02/03/17 6:50 AM) MCHC [32.0-36.0 g/dL] 33.5 g/dL 32.6 g/dL 32.6 g/dL (02/06/17 4:51 AM) (02/04/17 12:31 AM) (02/03/17 6:50 AM) RDW [11.5-14.5 %] 13.6 % 13.7 % 13.6 % (02/06/17 4:51 AM) (02/04/17 12:31 AM) (02/03/17 6:50 AM) Platelet [133-450 K/CMM] 193 K/CMM 277 K/CMM 267 K/CMM (02/06/17 4:51 AM) (02/04/17 12:31 AM) (02/03/17 6:50 AM) MPV [7.4-10.4 fL] 8.6 fL 9.2 fL 8.6 fL (02/06/17 4:51 AM) (02/04/17 12:31 AM) (02/03/17 6:50 AM) Segs [45.0-75.0 %] 82.8 % 59.7 % *HI* (02/03/17 6:50 AM) (02/04/17 12:31 AM) Lymphocytes [20.0-40.0 %] 7.6 % 27.1 % *LOW* (02/03/17 6:50 AM) (02/04/17 12:31 AM) Monocytes [2.0-12.0 %] 9.1 % 11.2 % (02/04/17 12:31 AM) (02/03/17 6:50 AM) Eosinophils [0.0-4.0 %] 0.1 % 1.4 % (02/04/17 12:31 AM) (02/03/17 6:50 AM) Basophils [0.0-1.0 %] 0.4 % 0.6 % (02/04/17 12:31 AM) (02/03/17 6:50 AM) Segs-Bands # [1.5-8.1 K/CMM] 6.7 K/CMM 3.3 K/CMM (02/04/17 12:31 AM) (02/03/17 6:50 AM) Lymphocytes # [1.0-5.5 0.6 K/CMM 1.5 K/CMM K/CMM] *LOW* (02/03/17 6:50 AM) (02/04/17 12:31 AM) Monocytes # [0.0-0.8 K/CMM] 0.7 K/CMM 0.6 K/CMM (02/04/17 12:31 AM) (02/03/17 6:50 AM) Eosinophils # [0.0-0.5 0.1 K/CMM K/CMM] (02/03/17 6:50 AM) Immunizations Given and Recorded Vaccine Date Status Refusal Reason pneumococcal 23-valent vaccine 01/18/17 Given Procedures Procedure Date Related Diagnosis Body Site Bilateral tubal ligation1 Dissection tonsillectomy Examination of joint of foot2 13YRS [id number]/07/[id number] FOOT SURGERY IN THE CHILDHOOD,[facility] Social History Social History Type Response Substance Abuse Use: None. Alcohol Current, Type Beer, Liquor. Frequency: 1-2 times per month. Previous treatment: None. Smoking Status Current every day smoker; Exposure to Tobacco Smoke None; Cigarette Smoking Last 365 Days No; Reg Smoking Cessation Counseling No Assessment and Plan Extracted from: Title: APMS Progress Note* Author: Donald Fernandes MD Date: 02/06/17 Patient: SUZANNA BEE Age: 26 years Sex: Female : 1990 Associated Diagnoses: None Author: Donald Fernandes MD History of Present Illness The patient presents with Pain. There were exacerbating factors. There were relieving factors. 26 yo F s/p R ankle ex fix removal, ORIF R pilon requesting APMS to perform block for acute complex post-operative pain management. s/p R popliteal sciatic catheter and R adductor canal ss block. patie nt's pain is well controlled. Catheter working well. minimal PRN oxycodone usage. Patient with preserved motor function. 02/05: Patient with malfunction EELER button for nerve catheter. Replaced. Clamped this morning, patient did not tolerate clamp well. Plan to stay for one more night. No motor blockade 02/06: No acute events overnight. Patient's catheter clamped overnight. Still with sharp, burning pain after local worn off. Patient would lie to go home with OnQ pump. Low dose oxycodone has assisted with dnamic movement. Chief Complaint RLE pain Review / Management Results review: Labs (Last four charted values) WBC 3.9 (FEB 06) 8.1 (FEB 04) 5.5 (FEB 03) Hgb L 10.4 (FEB 06) L 10.5 (FEB 04) L 11.9 (FEB 03) Hct L 31.0 (FEB 06) L 32.1 (FEB 04) 36.3 (FEB 03) Plt 193 (FEB 06) 277 (FEB 04) 267 (FEB 03) Na 136 (FEB 04) K 4.4 (FEB 04) CO2 L 21 (FEB 04) Cl 105 (FEB 04) Cr 0.67 (FEB 04) BUN 11 (FEB 04) Glucose Random 94 (FEB 04) Ca 8.5 (FEB 04) . Health Status Allergies: Allergies (4) Active Reaction codeine sulfate None Documented HYDROcodone None Documented Plastic Tape None Documented traMADol None Documented Current medications: Home Medications (5) Active acetaminophen 500 mg oral tablet See Instructions, PRN aspirin 325 mg tablet, enteric coated 325 mg=1 tab, PO, Daily docusate sodium 100 mg oral capsule 100 mg=1 cap, PRN, PO, Q12H gabapentin 300 mg oral capsule 600 mg=2 cap, PO, Q8H methocarbamol 500 mg oral tablet See Instructions, PRN Review of Systems Constitutional: Negative. Respiratory: Negative. Cardiovascular: Negative. Gastrointestinal: Negative. Hematology/Lymphatics: Negative. Endocrine: Negative. Musculoskeletal: Joint pain, Muscle pain. Integumentary: Negative. Neurologic: Negative. Psychiatric: Negative. Objective VS/Measurements Vital Signs (last 24 hrs) Last Charted Temp Oral 98.5 DegF (FEB 06 07:14) Heart Rate Peripheral 81 bpm (FEB 06 07:14) Resp Rate 16 BRMIN (FEB 06 07:14) SBP 103 mmHg (FEB 06 07:14) DBP 71 mmHg (FEB 06:14) SpO2 98 % (FEB 06:) General: Alert and oriented, Mild distress. Neck: Supple. Respiratory: Lungs are clear to auscultation, Respirations are non-labored. Cardiovascular: Normal rate, Regular rhythm. Gastrointestinal: Soft, Non-tender, Non-distended. Musculoskeletal RLE tenderness. Integumentary: Warm. Neurologic: Alert, Oriented. Psychiatric: Cooperative, Appropriate mood & affect. Subjective Problem: Pain Patient states Plan APKS Plan Discharge from [facility] care: Analgesics per Primary Service. Impression and Plan Education and Follow-up: Counseled: Regarding treatment, Regarding medications. 26 yo F s/p R ankle ex fix removal, ORIF R pilon s/p R popliteal sciatic catheter and R adductor canal ss block. Pain well controlled. 1. Will send patient home with On-Q pump, with 8cc/hr for 48 hours. Contact information given and received 2. Continue scheduled acetaminophen, robaxin, gabapentin 3. Will write script for oxycodone. [facility] to continue to follow through for patient while at home. Progress Note Date and Time of Visit: 02/06/2017 08:00 Post OP Day #: 3. Peripheral Nerve Block Nerve Block #: 1. Nerve Block Site: Popliteal: Right, continuous. Pump Settings: Basal Rate ml/hr: 8 . Current Status Assessment Level of Sedation: Awake/Alert. Site Assessment Non-tender, no redness, minimal swelling or bruising, No exudates, drainage, or bleeding. Side Effects None. Catheter(s) Removed Patietn to go home with OnQ Pump. Addendum by Luis Tiwari MD on TEACHING PHYSICIAN ADDENDUM: I saw and 02/07/2017 09:18 personally examined this patient and discussed the plan of care with this resident. I have reviewed the note below and agree with the history, examination findings and the plan of care.
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
--- OUTSIDE RECORDS SUMMARY | 2018-08-09 03:33 | XMS REPORT | Summary of Care ---
:1990 Author Name FLAKITO ALTAMIRANO M.D. 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 Quantity: 30 Refills: 1 SUNNYUVIRASEMA Pineda, FLAKITO Start : 29-Sep-2017 Active Meloxicam 15 MG Oral Tablet TAKE 1 TABLET DAILY NEEDED. Quantity: 30 Refills: 2 SUNNYUVAIN Kisha.Edwige., FLAKITO Start : 10-Nov-2017 Active Cephalexin 500 MG Oral Capsule TAKE 1 CAPSULE 3 TIMES DAILY UNTIL GONE. Quantity: 15 Refills: 0 SUNNYUVIRASEMA Pineda FLAKITO Start : 13-Dec-2017 Active TraMADol HCl - 50 MG Oral Tablet TAKE 2 TABLETS EVERY 6 HOURS. Quantity: 60 Refills: 1 GAUVAIN Kisha.Zaida, FLAKITO Start : 13-Dec-2017 Active Ondansetron 8 MG Oral Tablet Disintegrating TAKE 1 TABLET Every 8 hours PRN nauseau Quantity: 30 Refills: 0 GAUVAIN Kisha.Zaida, FLAKITO Start : 13-Dec-2017 Active Ondansetron 8 MG Oral Tablet Disintegrating TAKE 1 TABLET Every 8 hours PRN nauseau Quantity: 30 Refills: 0 SUNNYUVAIN Miriam, FLAKITO Start : 21-Dec-2017 Active Allergies and Adverse Reactions Name Dates Details No Known Drug Allergies (Allergy) Status: Active Procedures Procedure Dates Details Procedures not documented Immunization Name Dates Details Immunizations not documented Social History Name Dates Details Unknown if ever smoked Vital Signs Date Test Result Details No Known Vitals to report Results Date Description Value Details [id number] [U] XRAY ANKLE MIN 3 VWS RIGHT [id number] XR ANKLE MIN 3 VWS RIGHT Images acquired, not reported on this accession number. Plan of Care Name Dates Details Planned Observations Planned Goals not documented Planned Encounters Appointment; FLAKITO ALTAMIRANO M.D. On: 19-Dec-2018 9:45 Interventions Provided Labs/Procedures/Imaging[U] XRAY ANKLE MIN 3 VWS RIGHT [id number]; Done: 04 Jul 2018 Instructions Name Dates Details Instructions not documented Encounters Appointment; DEVIN DURAN P.A. On: 26-Jan-2017 9:15 Encounter Diagnosis: Problem not documented Appointment; KIRSTEN CHINCHILLA M.D. On: 03-Feb-2017 7:30 Encounter Diagnosis: Problem not documented Appointment; DEVIN DURAN P.A. On: 16-Feb-2017 11:00 Encounter Diagnosis: Problem not documented Appointment; KIRSTEN CHINCHILLA M.D. On: 23-Feb-2017 10:15 Encounter Diagnosis: Problem not documented Appointment; DEVIN DURAN P.A. On: 16-Mar-2017 10:15 Encounter Diagnosis: Problem not documented Appointment; KIRSTEN CHINCHILLA M.D. On: 17-Mar-2017 8:30 Encounter Diagnosis: Problem not documented Appointment; DEVIN DURAN P.A. On: 13-Apr-2017 10:15 Encounter Diagnosis: Problem not documented Appointment; DEVIN DURAN P.A. On: 11-May-2017 10:15 Encounter Diagnosis: Problem not documented Appointment; DEVIN DURAN P.A. On: 10-Aug-2017 10:15 Encounter Diagnosis: Problem not documented Appointment; FLAKITO ALTAMIRANO M.D. On: 18-Aug-2017 10:00 Encounter Diagnosis: Problem not documented Appointment; FLAKITO ALTAMIRANO M.D. On: 18-Aug-2017 14:15 Encounter Diagnosis: Problem not documented Appointment; FLAKITO ALTAMIRANO M.D. On: 29-Sep-2017 10:00 Encounter Diagnosis: Problem not documented Appointment; KIRSTEN CHINCHILLA M.D. On: 09-Nov-2017 10:15 Encounter Diagnosis: Problem not documented Appointment; FLAKITO ALTAMIRANO M.D. On: 10-Nov-2017 10:00 Encounter Diagnosis: Problem not documented Appointment; FLAKITO ALTAMIRANO M.D. On: 17-Nov-2017 11:15 Encounter Diagnosis: Problem not documented Appointment; FLAKITO ALTAMIRANO M.D. On: 22-Nov-2017 13:15 Encounter Diagnosis: Problem not documented Appointment; FLAKITO ALTAMIRANO M.D. On: 01-Jan-2018 9:45 Encounter Diagnosis: Problem not documented Appointment; FLAKITO ALTAMIRANO M.D. On: 17-Jan-2018 9:45 Encounter Diagnosis: Problem not documented Appointment; FLAKITO ALTAMIRANO M.D. On: 14-Feb-2018 9:45 Encounter Diagnosis: Problem not documented Appointment; FLAKITO ALTAMIRANO M.D. On: 21-Mar-2018 10:00 Encounter Diagnosis: Problem not documented Appointment; FLAKITO ALTAMIRANO M.D. On: 02-May-2018 9:45 Encounter Diagnosis: Problem not documented Appointment; FLAKITO ALTAMIRANO M.D. On: 04-Jul-2018 9:45 Encounter Diagnosis: Problem not documented
--- OUTSIDE RECORDS SUMMARY | 2018-08-09 03:33 | XMS REPORT | Summary of Care ---
:1990 Author Organization [facility] Address [address] [place] [id number]- Encounter HQ Encntr_alias(FIN) [id number] Date(s): 12/14/17 - 12/16/[address] Professional Services provided by [facility] [place] [address]- Encounter Diagnosis Traumatic arthropathy, right ankle and foot (Final) - 12/21/17 Body mass index (BMI) 40.0-44.9, adult (Final) - Morbid (severe) obesity due to excess calories (Final) - Nicotine dependence, cigarettes, uncomplicated (Final) - Unspecified asthma, uncomplicated (Final) - Discharge Disposition: Home or Self Care Attending Physician: Amado Ortega MD Admitting Physician: Amado Ortega MD Referring Physician: Amado Ortega MD Vital Signs Most recent to oldest [Reference 1 2 3 Range]: Height 154.94 cm (12/14/17 1:00 PM) Temperature Oral [96.4-99.1 DegF] 97.9 DegF 97.9 DegF 98.1 DegF (12/16/17 7:45 AM) (12/16/17 4:30 AM) (12/15/17 11:46 PM) Blood Pressure [90-140/60-90 108/75 mmHg 97/66 mmHg 110/68 mmHg mmHg] (12/16/17 7:45 AM) (12/16/17 4:30 AM) (12/15/17 11:46 PM) Respiratory Rate [14-20 BRMIN] 18 BRMIN 17 BRMIN 18 BRMIN (12/16/17 7:45 AM) (12/16/17 4:30 AM) (12/15/17 11:46 PM) Peripheral Pulse Rate [60-100 86 bpm 92 bpm 74 bpm bpm] (12/16/17 7:45 AM) (12/16/17 4:30 AM) (12/15/17 11:46 PM) Weight 102.273 kg (12/14/17 1:00 PM) Body Mass Index 42.6 m2 (12/14/17 1:00 PM) Problem List Condition Effective Dates Status Health Status Informant Pilon fracture(Confirmed)1 Active 1right Allergies, Adverse Reactions, Alerts Substance Reaction Severity Status codeine sulfate Active Latex Active Plastic Tape Active traMADol Active HYDROcodone Active Medications acetaminophen 1,000 mg, 2 tab, Route: PO, Drug form: TAB, Q6Hnow, Dosing Weight 102.273, kg, Start date: 12/14/17 18:00:00 VENTILATED RIB FITTER, Duration: 30 day, Stop date: 01/13/18 12:00: 00 CDT Notes: Max acetaminophen 4000 mg/day (4 gm/day). (Same as: Tylenol Extra Strength) Start Date: 12/14/17 Stop Date: 12/16/17 Status: Discontinuedacetaminophen (ANES) 10 mg Route: IV, Drug form: INJ, Start date: 12/14/17 14:07:00 VENTILATED RIB FITTER, Stop date: 15:07:00 VENTILATED RIB FITTER Start Date: 12/14/17 Stop Date: 12/14/17 Status: Completedalbuterol (ANES) Route: INHALATION, Drug form: AERO/A, ONCE, Stop date: 12/14/17 14:40:00 VENTILATED R[employer] FITTER Start Date: 12/14/17 Stop Date: 12/14/17 Status: CompletedAncef + sterile water 10 mL 1 gm, Route: IVP, Q8H, Dosing Weight 102.273, kg, Start date: 12/14/17 22:20:00 VENTILATED RIB FITTER, Duration: 3 doses or times, Stop date: 12/15/17 16:00:00 VENTILATED RIB FITTER, ABX Indication: Surgical Prophylaxis Notes: (Same As: AncefSaturninofzol) MEDICATION WASTE Product Size: 1000 mgProduct Wasted: ___ mg Start Date: 12/14/17 Stop Date: 12/15/17 Status: CompletedANES flumazenil 0.2 mg, 2 mL, Route: IVP, Drug form: INJ, PRN, Dosing Weight 102.273, kg, PRN Benzodiazepine Reversal, Initial dose, Start date: 12/14/17 18:02:00 VENTILATED RIB FITTER, Duration: 1 day, Stop date: 12/15/17 18:01:00 VENTILATED RIB FITTER Notes: (Same as: Romazicon) Start Date: 12/14/17 Stop Date: 12/14/17 Status: DiscontinuedANES hydrALAZINE 10 mg, 0.5 mL, Route: IVP, Drug form: INJ, Q20Min, Dosing Weight 102.273, kg, PRN Elevated BP, Startdate: 12/14/17 18:02:00 VENTILATED RIB FITTER, Duration: 2 doses or times, Stop date: 12/15/17 0:00:00 VENTILATED RIB FITTER Notes: (Same as: Apresoline)Push over 5 minutes Start Date: 12/14/17 Stop Date: 12/14/17 Status: DiscontinuedANES HYDROmorphone 0.5 mg, Route: IVP, Q5Min, Dosing Weight 102.273, kg, PRN Pain Score 7-10, Start date: 12/14/17 18:02:00 VENTILATED RIB FITTER, Duration: 4 doses or times, Stop date: Limited # of times Start Date: 12/14/17 Stop Date: 12/14/17 Status: DiscontinuedANES labetalol 10 mg, 2 mL, Route: IVP, Drug form: INJ, Q5Min, Dosing Weight 102.273, kg, PRN Elevated BP, Start date: 12/14/17 18:02:00 VENTILATED RIB FITTER, Duration: 5 doses or times, Stop date: 12/15/17 0:00:00 VENTILATED RIB FITTER Start Date: 12/14/17 Stop Date: 12/14/17 Status: DiscontinuedANES naloxone 0.4 mg, 1 mL, Route: IVP, Drug form: INJ, Q2MIN, Dosing Weight 102.273, kg, PRN Narcotic Reversal, Start date: 12/14/17 18:02:00 VENTILATED RIB FITTER, Duration: 8 doses or times , Stop date: 12/15/17 0:00:00 VENTILATED RIB FITTER Notes: Same as Narcan Start Date: 12/14/17 Stop Date: 12/14/17 Status: DiscontinuedANES ondansetron 4 mg, 2 mL, Route: IVP, Drug form: INJ, ONCE, Dosing Weight 102.273, kg, PRN Nausea & Vomiting, Start date: 12/14/17 18:02:00 VENTILATED RIB FITTER Notes: (Same as: Blake) MEDICATION WASTE Product Size: 4 mgProduct Wasted: ___ mg Start Date: 12/14/17 Stop Date: 12/14/17 Status: DiscontinuedANES oxyCODONE 5 mg, Route: PO, Drug form: TAB, Q4H, Dosing Weight 102.273, kg, PRN Pain Score 4-6, Start date: 12/14/17 18:02:00 VENTILATED RIB FITTER, Duration: 30 day, Stop date: 01/13/18 18 :01:00 CDT Start Date: 12/14/17 Stop Date: 12/14/17 Status: DiscontinuedANES oxyCODONE 10 mg, Route: PO, Drug form: TAB, Q4H, Dosing Weight 102.273, kg, PRN Pain Score 7-10, Start date: 12/14/17 18:02:00 VENTILATED RIB FITTER, Duration: 30 day, Stop date: 18:01:00 CDT Start Date: 12/14/17 Stop Date: 12/14/17 Status: Discontinuedaspirin 325 mg tablet 325 mg, 1 tab, Route: PO, Drug form: ECTAB, Q12H, Dosing Weight 102.273, kg, Start date: 12/14/17 22:19:00 VENTILATED RIB FITTER, Duration: 30 day, Stop date: 01/13/18 21:00: 00 CDT Notes: (Do Not Crush) Do not crush or chew. Start Date: 12/14/17 Stop Date: 12/16/17 Status: Discontinuedaspirin 325 mg tablet 325 mg=1 tab, PO, BID, # 84 tab, 0 Refill(s) Start Date: 12/16/17 Stop Date: 01/27/18 Status: OrderedBenadryl 25 mg, 1 cap, Route: PO, Drug form: CAP, TID, Dosing Weight 102.273, kg, PRN Itching, Start date: 12/14/17 13:21:00 VENTILATED RIB FITTER, Duration: 30 day, Stop date: 13:20:00 CDT Notes: (Same as: Leonardl) Start Date: 12/14/17 Stop Date: 12/16/17 Status: DiscontinuedceFAZolin (ANES) Route: IV, Drug form: INJ, ONCE, Stop date: 12/14/17 14:20:00 VENTILATED RIB FITTER Start Date: 12/14/17 Stop Date: 12/14/17 Status: Completeddexamethasone (ANES) Route: IV, Drug form: INJ, ONCE, Stop date: 12/14/17 14:35:00 VENTILATED RIB FITTER Start Date: 12/14/17 Stop Date: 12/14/17 Status: CompletedDilaudid 0.5 mg, Route: IVP, ONCE, Dosing Weight 102.273, kg, Priority: STAT, Start date : 12/14/17 17:08:00 VENTILATED RIB FITTER, Stop date: 12/14/17 17:08:00 VENTILATED RIB FITTER Start Date: 12/14/17 Stop Date: 12/14/17 Status: Completeddocusate 100 mg, Route: PO, BID, Dosing Weight 102.273, kg, Start date: 12/15/17 9:00:00 VENTILATED RIB FITTER, Duration: 30 day, Stop date: 01/13/18 17:00:00 CDT Start Date: 12/15/17 Stop Date: 12/14/17 Status: Canceleddocusate sodium 100 mg oral capsule 100 mg, 1 cap, Route: PO, Drug form: CAP, BID, Dosing Weight 102.273, kg, Start date: 12/14/17 17:00:00 VENTILATED RIB FITTER, Duration: 30 day, Stop date: 01/13/18 9:00:00 CDT Notes: (Same as: Colace) (Do Not Crush) Start Date: 12/14/17 Stop Date: 12/16/17 Status: Discontinueddocusate sodium 100 mg oral capsule 100 mg=1 cap, PO, Q12H, PRN as needed for constipation, # 28 cap, 0 Refill(s) Start Date: 12/16/17 Stop Date: 12/30/17 Status: OrderedfentaNYL (ANES) Route: IV, Drug form: INJ, ONCE, Stop date: 12/14/17 14:25:00 VENTILATED RIB FITTER Start Date: 12/14/17 Stop Date: 12/14/17 Status: Completedglycopyrrolate (ANES) Route: IV, Drug form: INJ, ONCE, Stop date: 12/14/17 16:49:00 VENTILATED RIB FITTER Start Date: 12/14/17 Stop Date: 12/14/17 Status: Completedhydromorphone 0.3 mg, 0.15 mL, Route: IVP, Drug form: INJ, Q4H, Dosing Weight 102.273, kg, PRN Pain Score 7-10, Start date: 12/14/17 17:20:00 VENTILATED RIB FITTER, Stop date: 01/13/18 17: 19:00 CDT Notes: Same as Dilaudid Start Date: 12/14/17 Stop Date: 12/15/17 Status: Discontinuedinfluenza virus vaccine, inactivated 0.5 mL, Route: IM, Drug Form: SUSP, Daily, Start date: 12/15/17 9:00:00 VENTILATED RIB FITTER, Duration: 1 doses or times, Stop date: 12/15/17 9:00:00 VENTILATED RIB FITTER Notes: (Same as: Fluzone Quadrivalent, Fluarix Quadrivalent)For 3 years of age and older (0.5 mL IM)Shake well before use Start Date: 12/15/17 Stop Date: 12/15/17 Status: CompletedLactated Ringers Injection IV (ANES) 1000 mL Route: IV, Total Volume: 1,000, Start date: 12/14/17 13:31:00 VENTILATED RIB FITTER, Stop date: 14:31:00 VENTILATED RIB FITTER Start Date: 12/14/17 Stop Date: 12/14/17 Status: Completedlidocaine (ANES) Route: IV, Drug form: INJ, ONCE, Stop date: 12/14/17 14:25:00 VENTILATED RIB FITTER Start Date: 12/14/17 Stop Date: 12/14/17 Status: Completedmeloxicam PO, Daily, 0 Refill(s) Start Date: 12/14/17 Stop Date: 12/15/17 Status: Completedmeloxicam 15 mg oral tablet 15 mg=1 tab, PO, Daily, NEEDED, 0 Refill(s) Start Date: 12/15/17 Status: Orderedmethocarbamol 500 mg oral tablet 1,000 mg=2 tab, PO, Q8H, X 10 day, # 60 tab, 0 Refill(s) Start Date: 12/16/17 Stop Date: 12/26/17 Status: Completedmidazolam (ANES) Route: IV, Drug form: SOLN, ONCE, Stop date: 12/14/17 14:05:00 VENTILATED RIB FITTER Start Date: 12/14/17 Stop Date: 12/14/17 Status: Completedneostigmine (ANES) Route: IV, Drug form: INJ, ONCE, Stop date: 12/14/17 16:49:00 VENTILATED RIB FITTER Start Date: 12/14/17 Stop Date: 12/14/17 Status: Completedondansetron 4 mg, Route: IVP, Q8H, Dosing Weight 102.273, kg, PRN Nausea & Vomiting, Start date: 12/14/17 17:20:00 VENTILATED RIB FITTER, Duration: 30 day, Stop date: 01/13/18 17:19: 00 CDT Start Date: 12/14/17 Stop Date: 12/14/17 Status: Discontinuedondansetron 4 mg, 2 mL, Route: IV, Drug form: INJ, Q8H, Dosing Weight 102.273, kg, PRN Nausea, Start date: 12/14/17 13:21:00 VENTILATED RIB FITTER, Duration: 30 day, Stop date: 13:20:00 CDT Notes: (Same as: Zofran) MEDICATION WASTE Product Size: 4 mgProduct Wasted: ___ mg Start Date: 12/14/17 Stop Date: 12/16/17 Status: Discontinuedondansetron (ANES) Route: IV, Drug form: INJ, ONCE, Stop date: 12/14/17 16:40:00 VENTILATED RIB FITTER Start Date: 12/14/17 Stop Date: 12/14/17 Status: CompletedoxyCODONE 5 mg immediate release 5 mg, 1 tab, Route: PO, Drug form: TAB, Q4H, Dosing Weight 102.273, kg, PRN Pain Score 4-6, Start date: 12/14/17 17:20:00 VENTILATED RIB FITTER, Duration: 30 day, Stop date: 01/13/18 17:19:00 CDT Notes: (Same as: Roxicodone) Start Date: 12/14/17 Stop Date: 12/16/17 Status: DiscontinuedoxyCODONE 5 mg immediate release 10 mg, 2 tab, Route: PO, Drug form: TAB, Q4H, Dosing Weight 102.273, kg, PRN Pain Score 7-10, Start date: 12/14/17 17:20:00 VENTILATED RIB FITTER, Duration: 30 day, Stop date : 01/13/18 17:19:00 CDT Notes: (Same as: Roxicodone) Start Date: 12/14/17 Stop Date: 12/16/17 Status: DiscontinuedoxyCODONE 5 mg oral tablet 10 mg=2 tab, PO, Q4H, PRN Pain Score 7-10, # 50 tab, 0 Refill(s) Start Date: 12/16/17 Stop Date: 12/29/17 Status: Completedpregabalin 100 mg, 1 cap, Route: PO, Drug form: CAP, Q8H, Dosing Weight 102.273, kg, Start date: 12/14/17 22:20:00 VENTILATED RIB FITTER, Duration: 30 day, Stop date: 01/13/18 16:00:00 CDT Notes: (Same as: Lyrica) Start Date: 12/14/17 Stop Date: 12/16/17 Status: Discontinuedpregabalin 100 mg oral capsule 100 mg=1 cap, PO, Q8H, # 30 cap, 0 Refill(s) Start Date: 12/16/17 Stop Date: 12/26/17 Status: Orderedpromethazine 12.5 mg, 0.5 mL, Route: IVPB, Drug form: INJ, Q4H, Dosing Weight 102.273, kg, PRN Nausea & Vomiting, Start date: 12/14/17 13:21:00 VENTILATED RIB FITTER, Duration: 30 day, Stop date: 01/13/18 13:20:00 CDT Notes: Do not give IV push. (Same as: Phenergan) Start Date: 12/14/17 Stop Date: 12/16/17 Status: Discontinuedpropofol (ANES) Route: IV, Drug form: INJ, ONCE, Stop date: 12/14/17 14:25:00 VENTILATED RIB FITTER Start Date: 12/14/17 Stop Date: 12/14/17 Status: CompletedRobaxin 1,000 mg, 2 tab, Route: PO, Drug form: TAB, Q8H, Dosing Weight 102.273, kg, Start date: 12/16/17 4:00:00 VENTILATED RIB FITTER, Duration: 30 day, Stop date: 01/15/18 0:00:00 CDT Notes: (Same as:Robaxin) Start Date: 12/16/17 Stop Date: 12/16/17 Status: Discontinuedrocuronium (ANES) Route: IV, Drug form: INJ, ONCE, Stop date: 12/14/17 14:25:00 VENTILATED RIB FITTER Start Date: 12/14/17 Stop Date: 12/14/17 Status: Completedsenna 2 tab, Route: PO, Dosing Weight 102.273, kg, Bedtime, Start date: 12/14/17 21:00 :00 VENTILATED RIB FITTER, Duration: 30 day, Stop date: 01/12/18 21:00:00 CDT Start Date: 12/14/17 Stop Date: 12/14/17 Status: CanceledZofran 4 mg oral tablet 4 mg=1 tab, PO, BID, # 10 tab, 0 Refill(s) Start Date: 12/16/17 Stop Date: 12/21/17 Status: Ordered Results BLOOD BANK RESULTS Most recent to oldest [Reference Range]: 1 2 3 ABO/Rh A POS *Unknown* (12/14/17 1:05 PM) Antibody Scrn Negative (12/14/17 1:05 PM) HEMATOLOGY Most recent to oldest 1 2 3 [Reference Range]: WBC [3.7-10.4 K/CMM] 9.7 K/CMM 13.1 K/CMM (12/16/17 5:47 AM) *HI* (12/15/17 5:01 AM) RBC [4.20-5.40 M/CMM] 4.19 M/CMM 4.26 M/CMM *LOW* (12/15/17 5:01 AM) (12/16/17 5:47 AM) Hgb [12.0-16.0 g/dL] 12.6 g/dL 12.6 g/dL 14.0 g/dL (12/16/17 5:47 AM) (12/15/17 5:01 AM) (12/14/17 1:05 PM) Hct [36.0-48.0 %] 37.6 % 37.8 % 41.4 % (12/16/17 5:47 AM) (12/15/17 5:01 AM) (12/14/17 1:05 PM) MCV [80.0-98.0 fL] 89.6 fL 88.7 fL (12/16/17 5:47 AM) (12/15/17 5:01 AM) MCH [27.0-31.0 pg] 30.0 pg 29.6 pg (12/16/17 5:47 AM) (12/15/17 5:01 AM) MCHC [32.0-36.0 g/dL] 33.5 g/dL 33.4 g/dL (12/16/17 5:47 AM) (12/15/17 5:01 AM) RDW [11.5-14.5 %] 14.7 % 14.1 % *HI* (12/15/17 5:01 AM) (12/16/17 5:47 AM) MPV [7.4-10.4 fL] 9.6 fL 10.0 fL (12/16/17 5:47 AM) (12/15/17 5:01 AM) Platelet [133-450 K/CMM] 168 K/CMM 183 K/CMM (12/16/17 5:47 AM) (12/15/17 5:01 AM) Segs [45.0-75.0 %] 74.7 % 92.8 % (12/16/17 5:47 AM) *HI* (12/15/17 5:01 AM) Lymphocytes [20.0-40.0 %] 17.0 % 4.4 % *LOW* *LOW* (12/16/17 5:47 AM) (12/15/17 5:01 AM) Monocytes [2.0-12.0 %] 7.8 % 2.8 % (12/16/17 5:47 AM) (12/15/17 5:01 AM) Eosinophils [0.0-4.0 %] 0.2 % 0.0 % (12/16/17 5:47 AM) (12/15/17 5:01 AM) Basophils [0.0-1.0 %] 0.3 % 0.0 % (12/16/17 5:47 AM) (12/15/17 5:01 AM) Segs-Bands # [1.5-8.1 K/CMM] 7.3 K/CMM 12.2 K/CMM (12/16/17 5:47 AM) *HI* (12/15/17 5:01 AM) Lymphocytes # [1.0-5.5 K/CMM] 1.7 K/CMM 0.6 K/CMM (12/16/17 5:47 AM) *LOW* (12/15/17 5:01 AM) Monocytes # [0.0-0.8 K/CMM] 0.8 K/CMM 0.4 K/CMM (12/16/17 5:47 AM) (12/15/17 5:01 AM) Immunizations Given and Recorded Vaccine Date Status Refusal Reason influenza virus vaccine, inactivated 12/15/17 Given pneumococcal 23-valent vaccine 01/18/17 Given Procedures Procedure Date Related Diagnosis Body Site Status Assess fracture care1 Completed Bilateral tubal ligation2 Completed Dissection tonsillectomy Completed Examination of joint of foot3 Completed 1X2 HARDWARE [id number] [id number]/07/[id number] FOOT SURGERY IN THE CHILDHOOD,STSG Social History Social History Type Response Substance Abuse Use: None. Alcohol Past, Type Beer, Liquor. Frequency: 1-2 times per month. Previous treatment: None. Smoking Status Current every day smoker; Type: Cigarettes; Ready to change: No ; Concerns about tobacco use in household: No; Exposure to Tobacco Smoke None; Cigarette Smoking Last 365 Days Yes; Reg Smoking Cessation Counseling Yes; Tobacco use per day: 8; 1 entered on: 12/14/17 1QUIT January Assessment and Plan Extracted from: Title: APMS Progress Note Author: Binu Basilio DO Date: 12/16/17 Patient: SUZANNA BEE Age: 27 years Sex: Female : 1990 Associated Diagnoses: None Author: Binu Basilio DO Basic Information Referral source Reason for consultation: Complex Acute Pain Requesting physician: Dr. Andrés MD Chief Complaint R leg pain History of Present Illness The patient presents with Location: R leg Quality: sharp Severity: 2 Timing: constant Context: s/p hardware removal Modifying factors: movement . 27F who sustained R pilon fx in the past s/p ORIF, now s/p hardware removal and R ankle fusion this admission, after which she received a pop-sci single shot block. APMS consulted to follow up after blo ck and for pain management. Pt endorses significant pain relief this AM with current medical regimen 0-2/10 on pain scale Histories Past Medical History: Active Pilon fracture ([id number]) Comments: 03/16/2017 CDT 14:52 CDT - Kaye Collier RN right Family History: High blood pressure Father Mother Type 2 diabetes mellitus Mother Father Procedure history: Examination of joint of foot ([id number]). Comments: 01/17/2017 18:56 - Hesham Phillips RN LT FOOT SURGERY IN THE CHILDHOOD,STSG Dissection tonsillectomy ([id number]). Bilateral tubal ligation ([id number]). Comments: 01/17/2017 18:57 - Hesham Phillips RN 3YRS AGO01/07/2014 Assess fracture care ([id number]). Comments: 03/16/2017 14:53 Kaye Centeno RN X2 HARDWARE PLACED Social History Social & Psychosocial Habits Alcohol 03/16/2017 Use: Past Type: Beer, Liquor Frequency: 1-2 times per month Previous treatment: None Substance Abuse 01/17/2017 Use: None Tobacco 12/14/2017 Use: Current every day smoker Type: Cigarettes Tobacco use per day: 8 Ready to change: No Concerns about tobacco use in household: No Exposure to Tobacco Smoke None Cigarette Smoking Last 365 Days Yes Reg Smoking Cessation Counseling Yes Comment: QUIT January - 03/16/2017 14:Kaye Elias RN . Health Status Allergies: Allergic Reactions (All) Severity Not Documented Codeine sulfate- No reactions were documented. HYDROcodone- No reactions were documented. Latex- No reactions were documented. Plastic Tape- No reactions were documented. TraMADol- No reactions were documented., Allergies (5) Active Reaction codeine sulfate None Documented HYDROcodone None Documented Latex None Documented Plastic Tape None Documented traMADol None Documented Current medications: (Selected) Prescriptions Prescribed Zofran 4 mg oral tablet: 4 mg, 1 tab, PO, BID, for 5 day, 10 tab, 0 Refill(s) aspirin 325 mg tablet: 325 mg, 1 tab, PO, BID, for 42 day, 84 tab, 0 Refill(s) docusate sodium 100 mg oral capsule: 100 mg, 1 cap, PO, Q12H, for 14 day, PRN: as needed for constipation, 28 cap, 0 Refill(s) gabapentin 300 mg oral capsule: 600 mg, 2 cap, PO, Q8H, 60 cap, 0 Refill(s) methocarbamol 500 mg oral tablet: 1,000 mg, 2 tab, PO, Q8H, for 10 day, 60 tab , 0 Refill(s) oxyCODONE 5 mg oral tablet: 10 mg, 2 tab, PO, Q4H, PRN: Pain Score 7-10, 50 tab , 0 Refill(s) pregabalin 100 mg oral capsule: 100 mg, 1 cap, PO, Q8H, for 10 day, 30 cap, 0 Refill(s) Documented Medications Documented meloxicam 15 mg oral tablet: 15 mg, 1 tab, PO, Daily, NEEDED, 0 Refill(s) Problem list: All Problems Pilon fracture / SNOMED CT [id number] / Confirmed right, Active Problems (1) Pilon fracture Review of Systems Constitutional: Negative except as documented in history of present illness. Cardiovascular: Negative except as documented in history of present illness. Eye: Negative. Ear/Nose/Mouth/Throat: Negative except as documented in history of present illness. Respiratory: Negative except as documented in history of present illness. Gastrointestinal: Negative except as documented in history of present illness. Genitourinary: Negative except as documented in history of present illness. Musculoskeletal: Negative except as documented in history of present illness. Neurologic: Negative except as documented in history of present illness. Psychiatric: Negative except as documented in history of present illness. Endocrine: Negative except as documented in history of present illness. Hematology/Lymphatics: Negative except as documented in history of present illness. Physical Examination VS/Measurements Measurements from flowsheet : Measurements 12/16/2017 09:12 Height in Feet 5 ft Weight in Pounds 225 lb , Vital Signs (last 24 hrs) Last Charted Temp Oral 97.9 DegF (DEC 16 07:45) Heart Rate Peripheral 86 bpm (DEC 16 07:45) Resp Rate 18 BRMIN (DEC 16 07:45) SBP 108 mmHg (DEC 16 07:45) DBP 75 mmHg (DEC 16 07:45) SpO2 98 % (DEC 16 07:45) General: Alert and oriented, No acute distress. Eye: Pupils are equal, round and reactive to light, Extraocular movements are intact. HENT: Normocephalic. Neck: Supple. Respiratory: Lungs are clear to auscultation. Cardiovascular: Normal rate, Regular rhythm. Gastrointestinal: Soft, Non-tender, Non-distended. Genitourinary: No costovertebral angle tenderness. Lymphatics: No lymphadenopathy neck, axilla, groin. Musculoskeletal residual motor blockade in RLE. Integumentary: Warm, Dry. Neurologic: Alert, Oriented. Cognition and Speech: Oriented. Psychiatric: Cooperative. Review / Management Results review: Labs (Last four charted values) WBC 9.7 (DEC 16) H 13.1 (DEC 15) Hgb 12.6 (DEC 16) 12.6 (DEC 15) 14.0 (DEC 14) Hct 37.6 (DEC 16) 37.8 (DEC 15) 41.4 (DEC 14) Plt 168 (DEC 16) 183 (DEC 15) . Chest x-ray results ECG interpretation Impression and Plan Diagnosis Orders Education and Follow-up: Counseled: Regarding treatment, Regarding medications. 27F who sustained R pilon fx in the past s/p ORIF, now s/p hardware removal and R ankle fusion this admission, after which she received a pop-sci single shot block. APMS consulted to follow up after blo ck and for pain management. She is doing well and pain is controlled on current regimen. Motor/sensory blockade has now worn off. APMS to sign off today Please call [phone] with any questions. Binu Basilio DO, PGY-3 Addendum by Luis Tiwari MD on TEACHING PHYSICIAN ADDENDUM: I saw and 12/17/2017 10:38 personally examined this patient and discussed the plan of care with this resident. I have reviewed the note below and agree with the history, examination findings and the plan of care. Extracted from: Title: Clinical Document Author: Luis Miguel Santiago MD Date: 12/16/17 Orthopaedic Discharge Summary Admit date: 12/14/2017 Discharge Date: 12/16/2017 Admitting Physician: Dr. 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 She was admitted for PT and pain control. APMS blocked her post oepratively and helped con trol her pain. She was discharged home in good condition in 2 days. Discharge Disposition: home Pending Surgeries/Procedures: none Discharge Condition: good Discharge diet: regular Discharge activity: NWB RLE Discharge medications: oxycodone, robaxin, lyrica, zofran, aspirin Special instructions: NWB RLE Wound care: Keep all wounds dry. Stitches/jonathan: do not remove Driving: None until cleared by physician Please call Dr. Ortega or return to ED with questions or concerns including increased bleeding, drainage, pain out of proportion, fever > 101.4, nausea and vomiting. Follow-up instructions: Please follow up with Dr. Ortega in 2 weeks. Luis Miguel Santiago [id number] PGY5 Extracted from: Title: APMS Consult Note Author: Cami Baez MD Date: 12/15/17 Patient: SUZANNA BEE Age: 27 years Sex: Female : 1990 Associated Diagnoses: None Author: Cami Baez MD Basic Information Referral source Reason for consultation: Complex Acute Pain Requesting physician: Dr. Andrés MD Chief Complaint R leg pain History of Present Illness The patient presents with Location: R leg Quality: sharp Severity: 2 Timing: constant Context: s/p hardware removal Modifying factors: movement . 27F who sustained R pilon fx in the past s/p ORIF, now s/p hardware removal and R ankle fusion this admission, after which she received a pop-sci single shot block. APMS consulted to follow up after block and for pain management. Histories Past Medical History: Active Pilon fracture ([id number]) Comments: 03/16/2017 CDT 14:52 CDT - Kaye Collier RN right Family History: High blood pressure Father Mother Type 2 diabetes mellitus Mother Father Procedure history: Examination of joint of foot ([id number]). Comments: 01/17/2017 18:56 - Hesham Phillips RN LT FOOT SURGERY IN THE CHILDHOOD,STSG Dissection tonsillectomy ([id number]). Bilateral tubal ligation ([id number]). Comments: 01/17/2017 18:57 - Hesham Phillips RN 3YRS AGO01/07/2014 Assess fracture care ([id number]). Comments: 03/16/2017 14:Kaye Elias RN X2 [employer] Social History Social & Psychosocial Habits Alcohol 03/16/2017 Use: Past Type: Beer, Liquor Frequency: 1-2 times per month Previous treatment: None Substance Abuse 01/17/2017 Use: None Tobacco 12/14/2017 Use: Current every day smoker Type: Cigarettes Tobacco use per day: 8 Ready to change: No Concerns about tobacco use in household: No Exposure to Tobacco Smoke None Cigarette Smoking Last 365 Days Yes Reg Smoking Cessation Counseling Yes Comment: QUIT January - 03/16/2017 14:Kaye Elias RN . Health Status Allergies: Allergic Reactions (All) Severity Not Documented Codeine sulfate- No reactions were documented. HYDROcodone- No reactions were documented. Latex- No reactions were documented. Plastic Tape- No reactions were documented. TraMADol- No reactions were documented., Allergies (5) Active Reaction codeine sulfate None Documented HYDROcodone None Documented Latex None Documented Plastic Tape None Documented traMADol None Documented Current medications: (Selected) Inpatient Medications Ordered Ancef + sterile water 10 mL: 1 gm, 200 ml/hr, IVP, Q8H Benadryl: 25 mg, 1 cap, PO, TID, PRN: Itching acetaminophen: 1,000 mg, 2 tab, PO, Q6Hnow aspirin 325 mg tablet: 325 mg, 1 tab, PO, Q12H docusate sodium 100 mg oral capsule: 100 mg, 1 cap, PO, BID ondansetron: 4 mg, 2 mL, IV, Q8H, PRN: Nausea oxyCODONE 5 mg immediate release: 10 mg, 2 tab, PO, Q4H, PRN: Pain Score 7-10 oxyCODONE 5 mg immediate release: 5 mg, 1 tab, PO, Q4H, PRN: Pain Score 4-6 pregabalin: 100 mg, 1 cap, PO, Q8H promethazine: 12.5 mg, 0.5 mL, IVPB, Q4H, PRN: Nausea & Vomiting Prescriptions Prescribed aspirin 325 mg tablet, enteric coated: 325 mg, 1 tab, PO, Daily, Do not take in combination with Lovenos, 18 tab, 0 Refill(s) docusate sodium 100 mg oral capsule: 100 mg, 1 cap, PO, Q12H, for 14 day, PRN: as needed for constipation, 28 cap, 0 Refill(s) gabapentin 300 mg oral capsule: 600 mg, 2 cap, PO, Q8H, 60 cap, 0 Refill(s) Documented Medications Documented meloxicam: PO, Daily, 0 Refill(s) Problem list. Review of Systems Constitutional: Negative except as documented in history of present illness. Cardiovascular: Negative except as documented in history of present illness. Eye: Negative. Ear/Nose/Mouth/Throat: Negative except as documented in history of present illness. Respiratory: Negative except as documented in history of present illness. Gastrointestinal: Negative except as documented in history of present illness. Genitourinary: Negative except as documented in history of present illness. Musculoskeletal: Negative except as documented in history of present illness. Neurologic: Negative except as documented in history of present illness. Psychiatric: Negative except as documented in history of present illness. Endocrine: Negative except as documented in history of present illness. Hematology/Lymphatics: Negative except as documented in history of present illness. Physical Examination VS/Measurements Vital Signs (last 24 hrs) Last Charted Temp Oral 98.1 DegF (DEC 15:) Heart Rate Peripheral 72 bpm (DEC 15:) Resp Rate 18 BRMIN (DEC 15:) SBP 105 mmHg (DEC 15:) DBP 68 mmHg (DEC 15:) SpO2 97 % (DEC 15:) Weight 102.27 kg (DEC 14:) Height 154.94 cm (DEC 14:) BMI 42.6 (DEC 14:) General: Alert and oriented, No acute distress. Eye: Pupils are equal, round and reactive to light, Extraocular movements are intact. HENT: Normocephalic. Neck: Supple. Respiratory: Lungs are clear to auscultation. Cardiovascular: Normal rate, Regular rhythm. Gastrointestinal: Soft, Non-tender, Non-distended. Genitourinary: No costovertebral angle tenderness. Lymphatics: No lymphadenopathy neck, axilla, groin. Musculoskeletal residual motor blockade in RLE. Integumentary: Warm, Dry. Neurologic: Alert, Oriented. Cognition and Speech: Oriented. Psychiatric: Cooperative. Review / Management Results review: Labs (Last four charted values) WBC H 13.1 (DEC 15) Hgb 12.6 (DEC 15) 14.0 (DEC 14) Hct 37.8 (DEC 15) 41.4 (DEC 14) Plt 183 (DEC 15) . Chest x-ray results ECG interpretation Impression and Plan Diagnosis Orders Education and Follow-up: Counseled: Regarding treatment, Regarding medications. 27F who sustained R pilon fx in the past s/p ORIF, now s/p hardware removal and R ankle fusion this admission, after which she received a pop-sci single shot block. APMS consulted to follow up after blo ck and for pain management. Patient still has some residual motor blockade. She is doing well and pain is controlled on current regimen. Will follow up tomorrow. Please call [phone] with any questions. Cami Baez MD PGY-3 Addendum by Luis Tiwari MD on TEACHING PHYSICIAN ADDENDUM: I saw and 12/15/2017 15:31 personally examined this patient and discussed the plan of care with this resident. I have reviewed the note below and agree with the history, examination findings and the plan of care. 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 SHe went onto develop post traumatic arthritis. SHe was seen in clinic and offered removal of hardware and a R ankle fus ion, which he consented to. SHe was brought into the hospital for the procedure , which she tolerated well. She was admitted for pain control and PT. Past surgical history - ORIF R pilon fx Past medical history - none Review of Systems: Gen: Denies fever/chills/night sweats. HEENT: Denies vision change, sore throat, ulcers in mouth, epistaxis CV: Denies CP, Palpitations Resp: Denies SOB, wheezing, cough GI: Denies Abd pain, N/V/D/Constipation. Denies incontinence. : Denies urinary retention, urgency, burning, discharge. Back/Spine: Denies pain. Neuro: Denies numbness, tingling, headaches, weakness in extremities. Integumentary: Denies open wounds, rashes, navas. Endocrine: Denies recent weight changes, heat/cold insensitivity. Psych: Denies depression, anxiety, labile mood, suicidal/homicidal ideation. Musculoskeletal: Denies all but HPI. All other systems negative except HPI. Vitals and Temp: Vitals Tmp(F) Pulse BP RR SpO2 FIO2 12/14 13:00 99.1 89 127/86 18 99 --- 24 Hr Tmax: 99.1F (37.28c) at 12/14 13:00 Vital Signs are the last 5 in the past 48 hours. Alcohol Details: Past, Type Beer, Liquor. Frequency: 1-2 times per month. Previous treatment: None. Tobacco Details: Use: Current every day smoker. Type: Cigarettes. 8 per day. Ready to change: No. Household tobacco concerns: No. Tobacco smoke exposure: None. Did the Patient Smoke Cigarettes Anytime Dur ing the Last 365 Days? Yes. Cessation Counseling Provided? Yes.; Comment(s): QUIT January Substance Abuse Details: Use: None. Bilateral tubal ligation Dissection tonsillectomy Examination of joint of foot Assess fracture care No qualifying data available 24hr Labs 12/14 1305 ABO/Rh A POS Antibody Scrn Negative Hgb 14.0 Hct 41.4 Mother: High blood pressure; Type 2 diabetes mellitus Father: High blood pressure; Type 2 diabetes mellitus Exam: Gen: A/Ox3, NAD HEENT: NCAT, PERRLA Resp: Breathing unlabored CV: Distal pulses palpated, RRR Abd: NT, ND Pelvis: NT to stress, no open wounds. RUE: Inspection: No tenderness, no obvious abnormalities, no open wounds. Comparments soft and compressible. Sensation: sensation intact to light touch m/r/u n Motor: intact AIN/PIN/Ulnar in hand; 5/5 Wrist flex/ext; Elbow flex/ext; Shoulder ABd,Flex Vascular: 2+ radial pulse palpated, BCR all fingers <2 sec. LUE: Inspection: No tenderness, no obvious abnormalities, no open wounds. Comparments soft and compressible. Sensation: sensation intact to light touch m/r/u n Motor: intact AIN/PIN/Ulnar in hand; 5/5 Wrist flex/ext; Elbow flex/ext; Shoulder ABd,Flex Vascular: 2+ radial pulse palpated, BCR all fingers <2 sec. RLE: Inspection: R lower leg healed incisions, R ankle pain Sensation: SILT DP, SP, Tib, Leyla, Saph Motor: Wiggles all toes, 5/5 EHL/FHL, 4+/5 TA, GS Vascular: 2+ DP/PT, all toes BCR <2 sec LLE: Inspection: No tenderness, no obvious abnormalities, no open wounds. Comparments soft and compressible. Sensation: SILT DP, SP, Tib, Leyla, Saph Motor: Wiggles all toes, 5/5 EHL/FHL, TA, GS, Quad, Ham, IP Vascular: 2+ DP/PT, all toes BCR <2 sec A/P: Plan: - PACU --> Admit - Weight bearing status: NWB RLE - Antibiotics: Ancef per scip protocol - Pain control: multimodal, post op block - Dressings: keep c/d/i ortho will do first change - DVT PPx: asa 325 mg bid, TEDS/SCD - Regular diet - Bowel Regimen: docusate - PT: consulted - Pending ORS surgeries: none - Dispo: will continue to follow in house, home tomorrow or the next day Luis Miguel Santiago [id number] ATTENDING ATTESTATION: I was present with the Chief Resident, Dr. Santiago for the evaluation and care of this patient. I agree with the above exam findings and plan for the patient. The patient will be admitted to the hospital under my service. Amado Ortega MD
[2018-08-09] MEDS ORDERED: NA CHLORIDE 0.9% 2,000 ML ONE (03:54)
[2018-08-09] MEDS ORDERED: IBUPROFEN 400 MG TAB ONE (03:54)
[2018-08-09 04:11] LABS: Absolute Lymphocytes (CBC) 0.6 K/uL (0.7-4.9); Absolute Monocytes 0.5 K/uL (0.1-1.3); Absolute Neutrophil 10.2 K/uL (1.8-8.0); Basophils % 0.3 % (0-1.3); Eosinophils % 0.1 % (0-4.4); Hematocrit 37.8 % (36.0-45.0); Lymphocytes % 5.5 % (15.3-44.8); MCH 29.8 pg (27.0-35.0); MCV 88.5 fL (80-100); MPV 9.4 fL (7.6-11.3); Monocytes % 4.7 % (3.3-12.3); RBC Red Blood Cell Count 4.28 M/uL (3.86-4.86)
[2018-08-09 04:22] LABS: Albumin 3.6 g/dL (3.4-5.0); Bilirubin Total 0.6 mg/dL (0.2-1.0); Potassium 3.7 mmol/L (3.5-5.1); Protein, Total 7.6 g/dL (6.4-8.2)
--- NOTE | 2018-08-09 05:49 | ER ---
Nurse's Notes [facility] Name: Nolberto Hernandez Age: 27 yrs Sex: Female : 1990 Arrival Date: 08/09/2018 Time: 03:27 Bed 7 Private MD: Diagnosis: Streptococcal pharyngitis Presentation: 08/09 03:43 Presenting complaint: Patient states: Body aches with cough and unable to breath due to ao throat hurts. Patient also complains of weakness and a headache. Transition of care: patient was not received from another setting of care. Onset of symptoms is unknown. Risk Assessment: Do you want to hurt yourself or someone else? Patient reports no desire to harm self or others. Initial Sepsis Screen: Does the patient meet any 2 criteria? Temp <36.0*C (96.8*F)) or > 38.3*C (100.9*F). HR > 90 bpm. Yes Does the patient have a suspected source of infection? No. Patient's initial sepsis screen is negative. Care prior to arrival: None. 03:43 Method Of Arrival: Ambulatory ao 03:43 Acuity: BRANDY 3 ao Triage Assessment: 03:50 General: Appears in no apparent distress. uncomfortable. Respiratory: Reports shortness ao of breath at rest Onset: The symptoms/episode began/occurred yesterday, the patient has moderate shortness of breath. 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 - Social history:: Smoking status: Patient/guardian denies using tobacco, Patient/guardian denies using alcohol, street drugs. - Ebola Screening: : Patient negative for fever greater than or equal to 101.5 degrees Fahrenheit, and additional compatible Ebola Virus Disease symptoms Patient denies exposure to infectious person Patient denies travel to an Ebola-affected area in the 21 days before illness onset. Screenin:50 Abuse screen: Denies threats or abuse. Denies injuries from another. Nutritional ao screening: No deficits noted. Tuberculosis screening: No symptoms or risk factors identified. Fall Risk None identified. Assessment: 03:48 General: Appears in no apparent distress. uncomfortable, Behavior is cooperative, ao appropriate for age, anxious. Pain: Complains of pain in Headach Pain currently is 6 out of 10 on a pain scale. Neuro: Level of Consciousness is awake, alert, obeys commands, Oriented to person, place, time, situation, Appropriate for age Moves all extremities. Full function Speech is normal, Facial symmetry appears normal. Cardiovascular: Heart tones S1 S2 Capillary refill Patient's skin is warm and dry. Rhythm is sinus tachycardia. Respiratory: Airway is patent Respiratory effort is even, labored, Respiratory pattern is regular, symmetrical, Breath sounds are clear. GI: Abdomen is obese. : No signs and/or symptoms were reported regarding the genitourinary system. EENT: No signs and/or symptoms were reported regarding the EENT system. Derm: Skin is pink, warm \T\ dry. Skin temperature is hot. Musculoskeletal: No signs and/or symptoms reported regarding the musculoskeletal system. Circulation, motion, and sensation intact. Range of motion: intact in all extremities. 05:31 Reassessment: Patient appears in no apparent distress at this time. Patient and/or ao family updated on plan of care and expected duration. Pain level reassessed. Patient sleeping with no ss of distress. Vital Signs: 03:42 BP 113 / 78; Pulse 118; Resp 20; Temp 103.0(O); Pulse Ox 98% on R/A; Weight 111.13 kg ao (R); Height 5 ft. 2 in. (157.48 cm) (R); Pain 6/10; 04:40 BP 102 / 55; Pulse 109; Resp 20; Temp 100.9(O); Pulse Ox 97% on R/A; Pain 5/10; ao 05:31 BP 111 / 57; Pulse 89; Resp 16; Pulse Ox 94% on R/A; ao 06:08 Temp 98.1; ao 03:42 Body Mass Index 44.81 (111.13 kg, 157.48 cm) ao ED Course: 03:27 Patient arrived in ED. ds1 03:33 Geo Duvall RN is Primary Nurse. ao 03:36 Brett Kothari MD is Attending Physician. ps1 03:45 Triage completed. ao 03:47 Arm band placed on right wrist. Patient placed in an exam room, Patient notified of ao wait time. 03:50 Patient has correct armband on for positive identification. Pulse ox on. NIBP on. ao 04:01 Inserted saline lock: 22 gauge in right hand, using aseptic technique. Blood collected. lp1 04:03 X-ray completed. Portable x-ray completed in exam room. Patient tolerated procedure kw well. 04:03 CXR XRAY In Process Unspecified. EDMS 06:29 No provider procedures requiring assistance completed. IV discontinued, intact, ao bleeding controlled, No redness/swelling at site. Pressure dressing applied. Administered Medications: 04:00 Drug: NS 0.9% (20 ml/kg) 20 ml/kg Route: IV; Rate: 1 bolus; Site: right hand; lp1 04:00 Drug: Motrin 800 mg Route: PO; lp1 06:08 Follow up: Temp 98.1; Response: No adverse reaction; Temperature is decreased ao 04:44 Drug: NS 0.9% (20 ml/kg) 20 ml/kg Route: IV; Rate: 1 bolus; Site: right hand; ao 06:07 Follow up: IV Status: Completed infusion; IV Intake: 500ml ao 06:00 Drug: Bicillin L-A 1.2 million units Route: IM; Site: right gluteus; ao 06:28 Follow up: Response: No adverse reaction ao 06:04 Drug: Decadron 10 mg Route: PO; ao 06:28 Follow up: Response: No adverse reaction ao Intake: 06:07 IV: 500ml; Total: 500ml. ao Outcome: 05:49 Discharge ordered by . ps1 06:29 Discharged to home ambulatory. ao 06:29 Condition: stable 06:29 Discharge instructions given to patient, Instructed on discharge instructions, follow up and referral plans. Demonstrated understanding of instructions, follow-up care, medications. 06:30 Patient left the ED. ao Signatures: Dispatcher [employer] [facility] Maryellen Greenwood Kimberlee kw Pena, Laura, RN RN lp1 Geo Duvall RN RN ao Brett Kothari MD MD ps1 Corrections: (The following items were deleted from the chart) 05:32 03:51 LMP N/A - Tubes tigh ao ao
--- NOTE | 2018-08-09 05:50 | EDPHYS ---
Physician Documentation [facility] Name: Nolberto Hernandez Age: 27 yrs Sex: Female : 1990 Arrival Date: 08/09/2018 Time: 03:27 Bed 7 Private MD: ED Physician Brett Kothari HPI: 08/09 03:44 This 27 yrs old Female presents to ER via Unassigned with complaints of ps1 Breathing Difficulty, Fever. 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 - Social history:: Smoking status: Patient/guardian denies using tobacco, Patient/guardian denies using alcohol, street drugs. - Ebola Screening: : Patient negative for fever greater than or equal to 101.5 degrees Fahrenheit, and additional compatible Ebola Virus Disease symptoms Patient denies exposure to infectious person Patient denies travel to an Ebola-affected area in the 21 days before illness onset. ROS: 05:51 Eyes: Negative for injury, pain, redness, and discharge, Respiratory: Negative for ps1 shortness of breath, cough, wheezing, and pleuritic chest pain, Abdomen/GI: Negative for abdominal pain, nausea, vomiting, diarrhea, and constipation, Back: Negative for injury and pain, MS/Extremity: Negative for injury and deformity, Skin: Negative for injury, rash, and discoloration, Neuro: Negative for headache, weakness, numbness, tingling, and seizure. 05:51 Constitutional: Positive for body aches, chills, fatigue, fever. 05:51 Neck: Positive for sore throat. Exam: 05:50 Constitutional: This is a well developed, well nourished patient who is awake, alert, ps1 and in no acute distress. Head/Face: Normocephalic, atraumatic. Eyes: Pupils equal round and reactive to light, extra-ocular motions intact. Lids and lashes normal. Conjunctiva and sclera are non-icteric and not injected. Chest/axilla: Normal chest wall appearance and motion. Nontender with no deformity. No lesions are appreciated. Respiratory: Lungs have equal breath sounds bilaterally, clear to auscultation and percussion. No rales, rhonchi or wheezes noted. No increased work of breathing, no retractions or nasal flaring. Abdomen/GI: Soft, non-tender, with normal bowel sounds. No distension or tympany. No guarding or rebound. No evidence of tenderness throughout. Back: No spinal tenderness. No costovertebral tenderness. Full range of motion. MS/ Extremity: Pulses equal, no cyanosis. Neurovascular intact. Full, normal range of motion. Neuro: Awake and alert, GCS 15, oriented to person, place, time, and situation. Cranial nerves II-XII grossly intact. Sensory grossly intact. 05:50 Cardiovascular: Rate: tachycardic, Rhythm: regular, Pulses: no pulse deficits are appreciated. Vital Signs: 03:42 BP 113 / 78; Pulse 118; Resp 20; Temp 103.0(O); Pulse Ox 98% on R/A; Weight 111.13 kg ao (R); Height 5 ft. 2 in. (157.48 cm) (R); Pain 6/10; 04:40 BP 102 / 55; Pulse 109; Resp 20; Temp 100.9(O); Pulse Ox 97% on R/A; Pain 5/10; ao 05:31 BP 111 / 57; Pulse 89; Resp 16; Pulse Ox 94% on R/A; ao 06:08 Temp 98.1; ao 03:42 Body Mass Index 44.81 (111.13 kg, 157.48 cm) ao MDM: 04:16 Patient medically screened. ps1 05:50 Data reviewed: vital signs, nurses notes, lab test result(s), and as a result, I will ps1 discharge patient, administer antibiotics administer steroids. Counseling: I had a detailed discussion with the patient and/or guardian regarding: the historical points, exam findings, and any diagnostic results supporting the discharge/admit diagnosis. Response to treatment: the patient's symptoms have markedly improved after treatment. 08/09 03:46 Order name: Flu; Complete Time: 05:47 ps1 08/09 03:46 Order name: Strep; Complete Time: 05:47 ps1 08/09 03:50 Order name: CBC with Diff; Complete Time: 06:21 ps1 08/09 03:50 Order name: CMP; Complete Time: 04:46 ps1 08/09 04:18 Order name: Manual Differential; Complete Time: 06:21 EDMS 08/09 06:05 Order name: Urine Dipstick--Ancillary (enter results); Complete Time: 06:12 mt 08/09 03:46 Order name: CXR XRAY ps1 08/09 06:06 Order name: Urine Microscopic Only; Complete Time: 06:21 ao 08/09 06:06 Order name: Urine Culture ao Administered Medications: 04:00 Drug: NS 0.9% (20 ml/kg) 20 ml/kg Route: IV; Rate: 1 bolus; Site: right hand; lp1 04:00 Drug: Motrin 800 mg Route: PO; lp1 06:08 Follow up: Temp 98.1; Response: No adverse reaction; Temperature is decreased ao 04:44 Drug: NS 0.9% (20 ml/kg) 20 ml/kg Route: IV; Rate: 1 bolus; Site: right hand; ao 06:07 Follow up: IV Status: Completed infusion; IV Intake: 500ml ao 06:00 Drug: Bicillin L-A 1.2 million units Route: IM; Site: right gluteus; ao 06:28 Follow up: Response: No adverse reaction ao 06:04 Drug: Decadron 10 mg Route: PO; ao 06:28 Follow up: Response: No adverse reaction ao Disposition: 08/09/18 05:49 Discharged to Home. Impression: Streptococcal pharyngitis. - Condition is Stable. - Discharge Instructions: Strep Throat. - Medication Reconciliation Form, Thank You Letter, Antibiotic Education, Prescription Opioid Use form. - Follow up: Private Physician; When: As needed; Reason: Recheck today's complaints, Continuance of care, Re-evaluation by your physician. Follow up: Emergency Department; When: As needed; Reason: Trouble breathing, Worsening of condition. - Problem is new. - Symptoms have improved. Signatures: Dispatcher [employer] EDMS Leti Wang RN RN lp1 Geo Duvall RN RN ao Singer, Phillip, MD MD ps1 Corrections: (The following items were deleted from the chart) 06:30 05:49 08/09/2018 05:49 Discharged to Home. Impression: Streptococcal pharyngitis. ao Condition is Stable. Forms are Medication Reconciliation Form, Thank You Letter, Antibiotic Education, Prescription Opioid Use. Follow up: Private Physician; When: As needed; Reason: Recheck today's complaints, Continuance of care, Re-evaluation by your physician. Follow up: Emergency Department; When: As needed; Reason: Trouble breathing, Worsening of condition. Problem is new. Symptoms have improved. ps1
[2018-08-09] MEDS ORDERED: DEXAMETHASONE 10 MG/ML VIAL ONE (06:02)
[2018-08-09] MEDS ORDERED: PEN G BENZ LA 1.2MU/2ML SYRINGE IM ONE (06:02)
[2018-08-09 06:11] LABS: Urine Blood NEGATIVE (NEG); Urine Glucose NEGATIVE (NEG); Urine Protein NEGATIVE (NEG); Urine Specific Gravity <1.005 (1.005-1.030); Urine pH 5.5 (5.0-7.0)
[2018-08-09 06:13] LABS: Blood Morphology Comment NOT SEEN (NOT SEEN); Platelet Estimate ADEQ
[2018-08-09 06:19] LABS: Urine Bacteria <20 /HPF (<20); Urine Culture Reflex Order NOT NEEDED; Urine RBC NONE SEEN /HPF (NONE SEEN)
[2018-08-09 06:37] VITALS: BP 111/57; O2SAT 94
[2018-08-09 06:38] VITALS: TEMP 98.1
--- NOTE | 2018-08-09 08:47 | RAD REPORT ---
EXAM DESCRIPTION: RAD - Chest Single View - 08/09/2018 4:06 am CLINICAL HISTORY: COUGH Chest pain. COMPARISON: ABDOMEN ACUTE SERIES dated 02/20/2013; CHEST PA AND LAT 2 VIEW dated 05/21/2009; CHEST PA AN D LAT 2 VIEW dated 05/19/2009 FINDINGS: Portable technique limits examination quality. The lungs are grossly clear. The heart is normal in size. No displaced fractures. IMPRESSION: No acute intrathoracic process suspected.
== END 2018-08-09 06:30 | disposition home or self-care (01) ==
LOC: ER 03:26
DX: J02.0 Streptococcal pharyngitis (principal); Z88.5 Allergy status to narcotic agent; Z88.6 Allergy status to analgesic agent
CPT/HCPCS: 36415; 71045; 80053; 81003; 81015; 85025; 87081; 87086; 87088; 87804; 96360; 96361; 96372; 99284; J0561; J1100; J7030

== ENCOUNTER 2019-12-11 09:42 | Emergency (ER) | payer SELFPAY ==
--- OUTSIDE RECORDS SUMMARY | 2019-12-11 09:44 | XMS REPORT | Summary of Care ---
:1990 Author Name FLAKITO ALTAMIRANO M.D. Address Unavailable Unavailable , Care Team Providers Name Role Phone EVELIA Pineda, FLAKITO Unavailable Unavailable LIVELY P.A., DEVIN Unavailable Unavailable Leslye Santiago Unavailable Unavailable Unavailable Unavailable Unavailable Functional Status [...] M19.171) Status: Active Medications Name Dates Details diazePAM 2 MG Oral Tablet i po BID prn spasm Quantity: 30 Refills: 0 LIVELY P.A., DEVIN Start : 11-May-2017 Active Meloxicam 15 MG Oral Tablet TAKE 1 TABLET DAILY. Quantity: 30 Refills: 1 GAUVAIN M.Edwige., FLAKITO Start : 29-Sep-2017 Active Meloxicam 15 MG Oral Tablet TAKE 1 TABLET DAILY NEEDED. Quantity: 30 Refills: 2 GAUVAIN M.D., FLAKITO Start : 10-Nov-2017 Active Cephalexin 500 MG Oral Capsule TAKE 1 CAPSULE 3 TIMES DAILY UNTIL GONE. Quantity: 15 Refills: 0 GAUVAIN Kisha.Edwige., FLAKITO Start : 13-Dec-2017 Active traMADol HCl - 50 MG Oral Tablet TAKE 2 TABLETS EVERY 6 HOURS. Quantity: 60 Refills: 1 GAUVAIN M.D., FLAKITO Start : 13-Dec-2017 Active Ondansetron 8 MG Oral Tablet Disintegrating TAKE 1 TABLET Every 8 hours PRN nauseau Quantity: 30 Refills: 0 GAUVAIN M.D., FLAKITO Start : 13-Dec-2017 Active Ondansetron 8 MG Oral Tablet Disintegrating TAKE 1 TABLET Every 8 hours PRN nauseau Quantity: 30 Refills: 0 GAUVAIN M.D., FLAKITO Start : 21-Dec-2017 Active Allergies and Adverse Reactions Name Dates Details No Known Drug Allergies (Allergy) Status: Active Procedures Procedure Dates Details Procedures not documented Immunization Name Dates Details Immunizations not documented Social History Name Dates Details Unknown if ever smoked Vital Signs Date Test Result Details No Known Vitals to report Results Date Description Value Details Results not documented Plan of Care Name Dates Details Planned Observations Planned Goals not documented Instructions Name Dates Details Instructions not documented [...]
[2019-12-11] MEDS ORDERED: ALBUTEROL 2.5 MG/3 ML NEB SOL ONE (10:30)
[2019-12-11] MEDS ORDERED: IBUPROFEN 400 MG TAB ONE (10:30)
--- NOTE | 2019-12-11 10:50 | ER ---
Nurse's Notes [facility] Name: Nolberto Hernandez Able Age: 29 yrs Sex: Female : 1990 Arrival Date: 12/11/2019 Time: 09:43 Bed 17 Private MD: Diagnosis: Streptococcal pharyngitis;Influenza due to identified novel influenza A virus Presentation: 12/11 09:55 Presenting complaint: Patient states: yesterday started feeling dizzy, headache, cough, iw body aches, fever, vomited early this morning, also has sore throat and right ear pain. Transition of care: patient was not received from another setting of care. Onset of symptoms was December 10, 2019. Risk Assessment: Do you want to hurt yourself or someone else? Patient reports no desire to harm self or others. Initial Sepsis Screen: Does the patient meet any 2 criteria? No. Patient's initial sepsis screen is negative. Does the patient have a suspected source of infection? No. Patient's initial sepsis screen is negative. Care prior to arrival: None. 09:55 Method Of Arrival: Ambulatory iw 09:55 Acuity: BRANDY 4 iw Triage Assessment: 10:00 General: Behavior is appropriate for age. tw2 11:27 General: Appears. 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 - Coronavirus screen:: The patient has NOT traveled to [place] in the past 14 days. Proceed with normal triage process as indicated. - Social history:: Smoking status: Patient reports the use of cigarette tobacco products, quit last Monday . - Ebola Screening: : Patient negative for fever greater than or equal to 101.5 degrees Fahrenheit, and additional compatible Ebola Virus Disease symptoms Patient denies exposure to infectious person Patient denies travel to an Ebola-affected area in the 21 days before illness onset No symptoms or risks identified at this time. Screenin:59 Abuse screen: Denies threats or abuse. Nutritional screening: No deficits noted. tw2 Tuberculosis screening: No symptoms or risk factors identified. Fall Risk None identified. Assessment: 10:00 General: Appears uncomfortable, Behavior is calm, cooperative, appropriate for age. tw2 Pain: Complains of pain in uvula, left aspect of posterior pharynx and right aspect of posterior pharynx. Neuro: Level of Consciousness is awake, alert, obeys commands, Oriented to person, place, time, situation. Cardiovascular: Patient's skin is warm and dry. Respiratory: Airway is patent Respiratory effort is even, unlabored, Respiratory pattern is regular, symmetrical, Breath sounds are clear bilaterally. EENT: Throat is reddened Reports nasal congestion nasal discharge. Musculoskeletal: Range of motion: intact in all extremities. 11:21 Reassessment: Patient appears in no apparent distress at this time. No changes from tw2 previously documented assessment. Patient and/or family updated on plan of care and expected duration. Pain level reassessed. Patient is alert, oriented x 3, equal unlabored respirations, skin warm/dry/pink. Vital Signs: 09:57 BP 99 / 78; Pulse 113; Resp 18 S; Temp 101.2; Pulse Ox 100% on R/A; Weight 68.49 kg; iw Height 5 ft. 1 in. (154.94 cm); Pain 7/10; 09:57 Body Mass Index 28.53 (68.49 kg, 154.94 cm) iw ED Course: 09:43 Patient arrived in ED. as 09:56 Triage completed. iw 09:57 Arm band placed on. iw 09:59 Rhina Tejada, RN is Primary Nurse. tw2 10:00 Bed in low position. Call light in reach. Adult w/ patient. tw2 10:09 Rain Gonzalez F[facility]-C [facility]. snw 10:09 James Ramirez MD is Attending Physician. snw 10:24 Flu Sent. tw2 10:24 Strep Sent. tw2 11:08 Awaiting: abx injection reaction time prior to discharge. tw2 11:21 No provider procedures requiring assistance completed. Patient did not have IV access tw2 during this emergency room visit. Administered Medications: 10:28 Drug: Motrin 400 mg Route: PO; tw2 11:21 Follow up: Response: No adverse reaction tw2 10:29 Drug: Albuterol 2.5 mg Route: Inhalation; tw2 11:03 Drug: Decadron - Dexamethasone 10 mg {Note: PO in juice per provider.} Route: IVP; tw2 Site: Other; 11:20 Follow up: Response: No adverse reaction tw2 11:05 Drug: Bicillin L-A 1.2 million units Route: IM; Site: left ventrogluteal; tw2 11:20 Follow up: Response: No adverse reaction tw2 Outcome: 10:47 Discharge ordered by . ryan 11:21 Discharged to home ambulatory, with significant other. tw2 11:21 Condition: stable 11:21 Discharge instructions given to patient, significant other, Instructed on discharge instructions, follow up and referral plans. no drinking with medication, no driving heavy equipment, medication usage, Demonstrated understanding of instructions, follow-up care, medications, Prescriptions given X 1. 11:22 Patient left the ED. tw2 Signatures: Rain Gonzalez, COMMUNITY ASSISTANT-C COMMUNITY ASSISTANT-Csnw Neeru Arias Irene, RN RN iw Rhina Tejada RN RN tw2 Corrections: (The following items were deleted from the chart) 11:21 11:17 Reassessment: Patient appears in no apparent distress at this time. No changes tw2 from previously documented assessment. Patient and/or family updated on plan of care and expected duration. Pain level reassessed. Patient is alert, oriented x 3, equal unlabored respirations, skin warm/dry/pink. tw2
--- NOTE | 2019-12-11 10:50 | EDPHYS ---
Physician Documentation [facility] Name: Nolberto Rosales Age: 29 yrs Sex: Female : 1990 Arrival Date: 12/11/2019 Time: 09:43 Bed 17 Private MD: ED Physician James Ramirez HPI: 12/11 10:22 This 29 yrs old Female presents to ER via Ambulatory with complaints of Sore snw Throat, Cough, Ear Pain, Dizziness. 10:22 The patient presents with sore throat. The patient describes throat pain as constant, snw raw. Onset: The symptoms/episode began/occurred acutely. Severity of symptoms: At their worst the symptoms were severe. Associated signs and symptoms: Pertinent positives: chills, cough, earache, fever, flu-like symptoms, malaise. It is unknown whether or not the patient has had similar symptoms in the past. The patient has not recently seen a physician. BTL 5 yrs ago. 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 - Coronavirus screen:: The patient has NOT traveled to [place] in the past 14 days. Proceed with normal triage process as indicated. - Social history:: Smoking status: Patient reports the use of cigarette tobacco products, quit last Monday . - Ebola Screening: : Patient negative for fever greater than or equal to 101.5 degrees Fahrenheit, and additional compatible Ebola Virus Disease symptoms Patient denies exposure to infectious person Patient denies travel to an Ebola-affected area in the 21 days before illness onset No symptoms or risks identified at this time. ROS: 10:22 Eyes: Negative for injury, pain, redness, and discharge. snw 10:22 Neck: Negative for injury, pain, and swelling, Cardiovascular: Negative for chest pain, palpitations, and edema. 10:22 Back: Negative for injury and pain, : Negative for injury, bleeding, discharge, and swelling, MS/Extremity: Negative for injury and deformity, Skin: Negative for injury, rash, and discoloration, Neuro: Negative for headache, weakness, numbness, tingling, and seizure. 10:22 Constitutional: Positive for body aches, chills, fatigue, fever, malaise. 10:22 ENT: Positive for ear pain, sore throat. 10:22 Respiratory: Positive for cough. 10:22 Abdomen/GI: Positive for nausea. Exam: 10:20 Head/Face: Normocephalic, atraumatic. Eyes: Pupils equal round and reactive to light, snw extra-ocular motions intact. Lids and lashes normal. Conjunctiva and sclera are non-icteric and not injected. Cornea within normal limits. Periorbital areas with no swelling, redness, or edema. 10:20 Neck: Trachea midline, no thyromegaly or masses palpated, and no cervical lymphadenopathy. Supple, full range of motion without nuchal rigidity, or vertebral point tenderness. No Meningismus. Chest/axilla: Normal chest wall appearance and motion. Nontender with no deformity. No lesions are appreciated. 10:20 Abdomen/GI: Soft, non-tender, with normal bowel sounds. No distension or tympany. No guarding or rebound. No evidence of tenderness throughout. Back: No spinal tenderness. No costovertebral tenderness. Full range of motion. Skin: Warm, dry with normal turgor. Normal color with no rashes, no lesions, and no evidence of cellulitis. MS/ Extremity: Pulses equal, no cyanosis. Neurovascular intact. Full, normal range of motion. Neuro: Awake and alert, GCS 15, oriented to person, place, time, and situation. Cranial nerves II-XII grossly intact. Motor strength 5/5 in all extremities. Sensory grossly intact. Cerebellar exam normal. Normal gait. 10:20 Constitutional: The patient appears alert, awake, uncomfortable. 10:20 ENT: TM's: are normal, Nose: is normal, Mouth: is normal, Posterior pharynx: swelling, that is mild, erythema, that is moderate, Voice: is normal. 10:20 Cardiovascular: Rate: tachycardic, Heart sounds: normal. 10:20 Respiratory: the patient does not display signs of respiratory distress, Respirations: shallow respirations, Breath sounds: are clear throughout, bronchitic cough. Vital Signs: 09:57 BP 99 / 78; Pulse 113; Resp 18 S; Temp 101.2; Pulse Ox 100% on R/A; Weight 68.49 kg; iw Height 5 ft. 1 in. (154.94 cm); Pain 7/10; 09:57 Body Mass Index 28.53 (68.49 kg, 154.94 cm) iw MDM: 10:24 Patient medically screened. snw 10:49 Data reviewed: vital signs, nurses notes. Data interpreted: Pulse oximetry: on room air snw is 100 %. Interpretation: normal. Counseling: I had a detailed discussion with the patient and/or guardian regarding: the historical points, exam findings, and any diagnostic results supporting the discharge/admit diagnosis, lab results, the need for outpatient follow up, to return to the emergency department if symptoms worsen or persist or if there are any questions or concerns that arise at home. Special discussion: Based on the history and exam findings, there is no indication for further emergent testing or inpatient evaluation. I discussed with the patient/guardian the need to see the primary care provider for further evaluation of the symptoms. 12/11 10:10 Order name: Strep snw 12/11 10:10 Order name: Flu; Complete Time: 10:43 snw Administered Medications: 10:28 Drug: Motrin 400 mg Route: PO; tw2 11:21 Follow up: Response: No adverse reaction tw2 10:29 Drug: Albuterol 2.5 mg Route: Inhalation; tw2 11:03 Drug: Decadron - Dexamethasone 10 mg {Note: PO in juice per provider.} Route: IVP; tw2 Site: Other; 11:20 Follow up: Response: No adverse reaction tw2 11:05 Drug: Bicillin L-A 1.2 million units Route: IM; Site: left ventrogluteal; tw2 11:20 Follow up: Response: No adverse reaction tw2 Disposition: 13:59 Co-signature as Attending Physician, James Ramirez MD I agree with the assessment and kdr plan of care. Disposition: 12/11/19 10:47 Discharged to Home. Impression: Streptococcal pharyngitis, Influenza due to identified novel influenza A virus. - Condition is Stable. - Discharge Instructions: Fever, Adult, Influenza, Adult, Strep Throat, Rehydration, Adult. - Prescriptions for promethazine 25 mg Oral Tablet - take 1 tablet by ORAL route every 6 hours As needed; 20 tablet. - Medication Reconciliation Form, Thank You Letter, Antibiotic Education, Prescription Opioid Use, School release form, Work release form form. - Follow up: Emergency Department; When: As needed; Reason: Worsening of condition. Follow up: Private Physician; When: 5 - 6 days; Reason: Recheck today's complaints, Continuance of care. - Problem is new. - Symptoms are unchanged. Signatures: Dispatcher [employer] EDOH James Ramirez MD MD [facility] Rain Gonzalez, SENIOR OFFICE ASSISTANT-C SENIOR OFFICE ASSISTANT-Csnw Chapis Call, RN RN iw Rhina Tejada RN RN tw2 Corrections: (The following items were deleted from the chart) 11:22 10:47 12/11/2019 10:47 Discharged to Home. Impression: Streptococcal pharyngitis; tw2 Influenza due to identified novel influenza A virus. Condition is Stable. Forms are Work release form, Medication Reconciliation Form, Thank You Letter, Antibiotic Education, Prescription Opioid Use. Follow up: Emergency Department; When: As needed; Reason: Worsening of condition. Follow up: Private Physician; When: 5 - 6 days; Reason: Recheck today's complaints, Continuance of care. Problem is new. Symptoms are unchanged. snw
[2019-12-11] MEDS ORDERED: PEN G BENZ LA 1.2MU/2ML SYRINGE IM ONE (10:58)
[2019-12-11] MEDS ORDERED: dexAMETHasone 4 MG/ML VIAL ONE (10:58)
[2019-12-11 11:29] VITALS: BP 99/78; TEMP 101.2; O2SAT 100
== END 2019-12-11 11:22 | disposition home or self-care (01) ==
LOC: ER 09:42
DX: J02.0 Streptococcal pharyngitis (principal); J10.1 Influenza due to other identified influenza virus with other respiratory manifestations; Z72.0 Tobacco use; Z88.5 Allergy status to narcotic agent; Z88.6 Allergy status to analgesic agent
CPT/HCPCS: 87081; 87804; 96372; 96374; 99284; J0561

== ENCOUNTER 2020-01-12 12:01 | Emergency (ER) | payer OTHER, SELFPAY ==
[2020-01-12] MEDS ORDERED: MORPHINE 4 MG/ML SYR ONE ×2 (12:49→13:55)
[2020-01-12] MEDS ORDERED: ONDANSETRON 4 MG/2 ML VIAL ONE ×2 (12:49→17:18)
[2020-01-12 13:02] LABS: Absolute Lymphocytes (CBC) 0.9 K/uL (0.7-4.9); Basophils % 0.5 % (0-1.3); Lymphocytes % 14.8 % (15.3-44.8); MPV 9.7 fL (7.6-11.3); RBC Red Blood Cell Count 4.49 M/uL (3.86-4.86)
[2020-01-12 13:39] LABS: Albumin 3.9 g/dL (3.4-5.0); Bilirubin Direct 0.1 mg/dL (0-0.2); Bilirubin Total 0.3 mg/dL (0.2-1.0); Potassium 3.8 mmol/L (3.5-5.1); Protein, Total 7.7 g/dL (6.4-8.2)
[2020-01-12 14:13] LABS: Urine Blood 3+ (NEG); Urine Glucose NEGATIVE (NEG); Urine Protein 1+ (NEG); Urine pH 7.5 (5.0-7.0)
[2020-01-12 14:24] LABS: Urine Bacteria 20-50 /HPF (<20); Urine Culture Reflex Order REFLEXED; Urine Mucus 1+ /HPF (NONE SEEN); Urine RBC >50 /HPF (NONE SEEN)
--- NOTE | 2020-01-12 14:39 | RAD REPORT ---
EXAM DESCRIPTION: CT - Abdomen Pelvis W Contrast - 01/12/2020 2:25 pm CLINICAL HISTORY: Abdominal pain COMPARISON: 2016 TECHNIQUE: Computed axial tomography of the abdomen pelvis was obtained. 100 cc Isovue-300 was admin istered intravenously. Oral contrast was not requested which limits evaluation of bowel. All CT scans are performed using dose optimization technique as appropriate and may include automated exposure control or mA/KV adjustment according to patient size. FINDINGS: The liver, spleen, pancreas, adrenal and kidneys appear unremarkable. There is no evidence of diverticulitis. Normal appendix. Trace amount of free fluid which may physiologic. Postsurgical changes involve stomach IMPRESSION: No acute abnormality is displayed.
--- NOTE | 2020-01-12 17:10 | RAD REPORT ---
EXAM DESCRIPTION: US - Transvaginal Study Probe - 01/12/2020 4:13 pm CLINICAL HISTORY: Pelvic pain COMPARISON: 2009 FINDINGS: The uterus measures 9 x 5 x 5cm. A fibroid is not seen. Endometrial stripe within normal l imits. Small nabothian cyst The ovaries are normal in size and echotexture. Each ovary contains multiple small follicles peripher ally. Right and left adnexal unremarkable No significant free fluid is seen. IMPRESSION: Ovaries contain multiple small follicles which can be seen with polycystic ovarian syndr ome
[2020-01-12] MEDS ORDERED: MORPHINE 2 MG/ML SYR ONE (17:13)
--- NOTE | 2020-01-12 17:13 | ER ---
Nurse's Notes [facility] Name: Nolberto Hernandez Able Age: 29 yrs Sex: Female : 1990 Arrival Date: 01/12/2020 Time: 12:04 Bed 26 Private MD: Diagnosis: Unspecified abdominal pain;Polycystic ovarian syndrome Presentation: 01/11 12:26 Chief complaint: Patient states: lower abd pain that began this morning with N/V. Pt ss has a history of PCOS, but reports that this pain is different, and much worse than any cyst she has had before. Coronavirus screen: Patient denies fever greater than 100.4F, cough, shortness of breath, or difficulty breathing. Proceed with normal triage process. Ebola Screen: Patient denies exposure to infectious person. Patient denies travel to an Ebola-affected area in the 21 days before illness onset. Initial Sepsis Screen: Does the patient meet any 2 criteria? HR > 90 bpm. Does the patient have a suspected source of infection? No. Patient's initial sepsis screen is negative. Risk Assessment: Do you want to hurt yourself or someone else? Patient reports no desire to harm self or others. 12:26 Method Of Arrival: Ambulatory ss 12:26 Acuity: BRANDY 3 ss Historical: - Allergies: 12:28 Codeine; ss 12:28 Hydrocodone-Acetaminophen; ss 12:28 tramadol; ss - PSHx: 12:28 Leg surgery; Gastric Bypass; ss - Immunization history:: Adult Immunizations up to date. - Social history:: Smoking status: Patient reports the use of cigarette tobacco products, < 1/2 ppd. Screenin:01 Abuse screen: Denies threats or abuse. Denies injuries from another. Nutritional ph screening: No deficits noted. Tuberculosis screening: No symptoms or risk factors identified. Fall Risk None identified. Assessment: 12:59 General: Appears in no apparent distress. uncomfortable, well groomed, Behavior is ph calm, cooperative, appropriate for age, Denies fever. Pain: Complains of pain in suprapubic area, right lower quadrant and left lower quadrant. Neuro: Level of Consciousness is awake, alert, obeys commands, Oriented to person, place, time, situation. Cardiovascular: Capillary refill < 3 seconds in bilateral fingers Patient's skin is warm and dry. Respiratory: Airway is patent Respiratory effort is even, unlabored, Respiratory pattern is regular, symmetrical. GI: Reports lower abdominal pain, Patient currently denies diarrhea, nausea, vomiting. : Reports pain in bilateral lower quadrant(s) Denies burning with urination, urinary frequency, vaginal bleeding. Derm: Skin is intact, is healthy with good turgor, Skin is pink, warm \T\ dry. Musculoskeletal: Circulation, motion, and sensation intact. Range of motion: intact in all extremities. Vital Signs: 12:25 BP 124 / 71; Pulse 91; Resp 18; Temp 98.4(O); Pulse Ox 95% on R/A; Weight 68.95 kg; ss Height 5 ft. 2 in. (157.48 cm); 13:01 BP 127 / 94; Pulse 74; Resp 18; Pulse Ox 95% on R/A; Pain 6/10; ph 14:00 BP 118 / 62; Pulse 76; Resp 18; Pulse Ox 99% on R/A; ph 15:30 BP 124 / 79; Pulse 71; Resp 18; Pulse Ox 98% on R/A; ph 16:30 BP 118 / 78; Pulse 69; Resp 16; Temp 98.0; Pulse Ox 99% on R/A; ph 12:25 Body Mass Index 27.80 (68.95 kg, 157.48 cm) ED Course: 12:04 Patient arrived in ED. am2 12:18 Emilio Dueñas NP is PHCP. pm1 12:18 Chris Tong MD is Attending Physician. pm1 12:25 Arm band placed on right wrist. ss 12:27 Triage completed. ss 12:33 Arina Rose, RN is Primary Nurse. ph 12:36 Radiology exam delayed due to lab results not completed at this time. (BUN/Creatinine) mw3 test not completed at this time. 12:36 Inserted saline lock: 20 gauge in right antecubital area, using aseptic technique. jp3 Blood collected. Patient maintains SpO2 saturation greater than 95% on room air. 12:36 Initial lab(s) drawn, by me, sent to lab. jp3 12:40 Bed in low position. Call light in reach. Side rails up X 1. Warm blanket given. Verbal jp3 reassurance given. Pulse ox on. NIBP on. 13:51 Radiology exam delayed due to test not completed at this time. mw3 14:25 CT completed. Patient tolerated procedure well. Patient moved back from CT. mw3 14:25 CT Abd/Pelvis - IV Contrast Only In Process Unspecified. EDMS 16:13 Ultrasound completed. Patient tolerated well. sg3 16:14 US Transvaginal Study (Probe) In Process Unspecified. EDMS 16:30 No provider procedures requiring assistance completed. ph 16:52 Urine Culture Sent. jp3 17:45 IV discontinued, intact, bleeding controlled, No redness/swelling at site. Pressure ph dressing applied. Administered Medications: 12:53 Drug: Zofran (Ondansetron) 4 mg Route: IVP; Site: right antecubital; ph 12:55 Drug: morphine 4 mg Route: IVP; Site: right antecubital; ph 14:02 Drug: morphine 4 mg Route: IVP; Site: right antecubital; ph 17:16 Drug: morphine 2 mg Route: IVP; Site: right antecubital; ph 17:16 Drug: Zofran (Ondansetron) 4 mg Route: IVP; Site: right antecubital; ph Outcome: 17:12 Discharge ordered by MD. pm1 17:52 Patient left the ED. ph 17:52 Discharged to home ambulatory. ph 17:52 Condition: good 17:52 Discharge instructions given to patient, Instructed on discharge instructions, follow up and referral plans. Demonstrated understanding of instructions, follow-up care. Signatures: Dispatcher [employer] EDMS Alicia Judge RN RN Arina Rose RN RN Emilio Dueñas, JACQUI FIRE PILOT pm1 Isela Linder 2 Rneetta Ramsey 3 Cheryl Najera mw3 Alex Alberts jp3
--- NOTE | 2020-01-12 17:13 | EDPHYS ---
Physician Documentation [facility] Name: Nolberto Rosales Age: 29 yrs Sex: Female : 1990 Arrival Date: 01/12/2020 Time: 12:04 Bed 26 Private MD: LAURIE Physician Chris Tong HPI: 01/11 14:02 This 29 yrs old Female presents to ER via Ambulatory with complaints of pm1 Pelvic Pain. 14:02 The patient presents with pelvic pain, that is located in/on the suprapubic area, right pm1 lower quadrant and left lower quadrant. Onset: The symptoms/episode began/occurred this morning. Modifying factors: The symptoms are alleviated by nothing, the symptoms are aggravated by nothing. Associated signs and symptoms: The patient has no apparent associated signs or symptoms, Pertinent negatives: constipation, diarrhea, dysuria, fever, nausea, vaginal discharge, vomiting. Severity of symptoms: in the emergency department the symptoms are actually worse. The patient's method of control includes tubal ligation. It is unknown whether or not the patient has recently seen a physician. Historical: - Allergies: 12:28 Codeine; ss 12:28 Hydrocodone-Acetaminophen; ss 12:28 tramadol; ss - PSHx: 12:28 Leg surgery; Gastric Bypass; ss - Immunization history:: Adult Immunizations up to date. - Social history:: Smoking status: Patient reports the use of cigarette tobacco products, < 1/2 ppd. ROS: 14:02 Positive for pelvic pain, Negative for urinary symptoms, flank pain, vaginal pm1 discharge, menstrual abnormality. 14:02 Constitutional: Negative for fever, chills, and weight loss, Cardiovascular: Negative for chest pain, palpitations, and edema, Respiratory: Negative for shortness of breath, cough, wheezing, and pleuritic chest pain. 14:02 Back: Negative for injury and pain, MS/Extremity: Negative for injury and deformity, Skin: Negative for injury, rash, and discoloration, Neuro: Negative for headache, weakness, numbness, tingling, and seizure. 14:02 Abdomen/GI: Positive for abdominal pain, of the suprapubic area, right lower quadrant and left lower quadrant, Negative for nausea, vomiting, and diarrhea. Exam: 14:02 Constitutional: This is a well developed, well nourished patient who is awake, alert, pm1 and in no acute distress. Head/Face: Normocephalic, atraumatic. Neck: Trachea midline, no thyromegaly or masses palpated, and no cervical lymphadenopathy. Supple, full range of motion without nuchal rigidity, or vertebral point tenderness. No Meningismus. Chest/axilla: Normal chest wall appearance and motion. Nontender with no deformity. No lesions are appreciated. Cardiovascular: Regular rate and rhythm with a normal S1 and S2. No gallops, murmurs, or rubs Respiratory: Lungs have equal breath sounds bilaterally, clear to auscultation and percussion. No rales, rhonchi or wheezes noted. No increased work of breathing, no retractions or nasal flaring. 14:02 Back: No spinal tenderness. No costovertebral tenderness. Full range of motion. Skin: Warm, dry with normal turgor. Normal color with no rashes, no lesions, and no evidence of cellulitis. MS/ Extremity: Pulses equal, no cyanosis. Neurovascular intact. Full, normal range of motion. 14:02 Abdomen/GI: Inspection: abdomen appears normal, Bowel sounds: normal, Palpation: soft, in all quadrants, mild abdominal tenderness, in the suprapubic area, mass, is not appreciated, rebound tenderness, is not appreciated. 14:02 Neuro: Exam negative for acute changes, Orientation: is normal, Motor: is normal, moves all fours. Vital Signs: 12:25 BP 124 / 71; Pulse 91; Resp 18; Temp 98.4(O); Pulse Ox 95% on R/A; Weight 68.95 kg; ss Height 5 ft. 2 in. (157.48 cm); 13:01 BP 127 / 94; Pulse 74; Resp 18; Pulse Ox 95% on R/A; Pain 6/10; ph 14:00 BP 118 / 62; Pulse 76; Resp 18; Pulse Ox 99% on R/A; ph 15:30 BP 124 / 79; Pulse 71; Resp 18; Pulse Ox 98% on R/A; ph 16:30 BP 118 / 78; Pulse 69; Resp 16; Temp 98.0; Pulse Ox 99% on R/A; ph 12:25 Body Mass Index 27.80 (68.95 kg, 157.48 cm) MDM: 12:18 Patient medically screened. pm1 14:05 Data reviewed: vital signs. Data interpreted: Pulse oximetry: on room air is 95 %. pm1 Interpretation: normal. 16:42 Counseling: I had a detailed discussion with the patient and/or guardian regarding: the pm1 historical points, exam findings, and any diagnostic results supporting the discharge/admit diagnosis, lab results, radiology results, the need for outpatient follow up, for definitive care, an OB/Gyne specialist, to return to the emergency department if symptoms worsen or persist or if there are any questions or concerns that arise at home. 16:42 Refusal of service: The patient/guardian displays adequate decision making capability pm1 and despite a detailed discussion of alternatives, benefits, risks, and consequences refuses: pelvic examination. She wants to follow up with gynecology for pelvic examination. 01/11 12:28 Order name: Basic Metabolic Panel; Complete Time: 13:53 pm01/11 12:28 Order name: CBC with Diff; Complete Time: 13:32 pm01/11 12:28 Order name: Creatinine for Radiology; Complete Time: 13:32 pm01/11 12:28 Order name: Hepatic Function; Complete Time: 13:53 pm01/11 12:28 Order name: Lipase; Complete Time: 13:53 pm01/11 14:07 Order name: Urine Microscopic Only; Complete Time: 14:25 pm01/11 12:28 Order name: CT Abd/Pelvis - IV Contrast Only; Complete Time: 14:43 pm01/11 14:08 Order name: Urine Dipstick--Ancillary (enter results); Complete Time: 14:15 ms 01/11 14:09 Order name: Urine --Ancillary (enter results); Complete Time: 14:15 ms 01/11 14:26 Order name: Urine Culture EDMS 01/11 15:07 Order name: US Transvaginal Study (Probe); Complete Time: 17:13 pm01/11 12:28 Order name: IV Saline Lock; Complete Time: 12:42 pm01/11 12:28 Order name: Labs collected and sent; Complete Time: 12:42 pm01/11 12:28 Order name: Urine Dipstick-Ancillary (obtain specimen); Complete Time: 14:08 pm01/11 12:28 Order name: Urine Test (obtain specimen); Complete Time: 14:08 pm1 Administered Medications: 12:53 Drug: Zofran (Ondansetron) 4 mg Route: IVP; Site: right antecubital; ph 12:55 Drug: morphine 4 mg Route: IVP; Site: right antecubital; ph 14:02 Drug: morphine 4 mg Route: IVP; Site: right antecubital; ph 17:16 Drug: morphine 2 mg Route: IVP; Site: right antecubital; ph 17:16 Drug: Zofran (Ondansetron) 4 mg Route: IVP; Site: right antecubital; ph Disposition: 01/12 07:34 Co-signature as Attending Physician, Chris Tong MD I agree with the assessment and tahira plan of care. Disposition: 01/12/20 17:12 Discharged to Home. Impression: Unspecified abdominal pain, Polycystic ovarian syndrome. - Condition is Stable. - Discharge Instructions: Abdominal Pain, Adult, Ovarian Cyst. - Medication Reconciliation Form, Thank You Letter, Antibiotic Education, Prescription Opioid Use form. - Follow up: Emergency Department; When: As needed; Reason: Worsening of condition. Follow up: Private Physician; When: 2 - 3 days; Reason: Recheck today's complaints, Continuance of care, Re-evaluation by your physician. - Problem is new. - Symptoms have improved. Signatures: Dispatcher [employer] EDMS Chris Tong MD MD cha Smirch, Shelby, RN RN Arina Rose RN RN Emilio Johnson, RECEIVING CHECKER RECEIVING CHECKER pm1 Corrections: (The following items were deleted from the chart) 01/11 17:52 17:12 01/12/2020 17:12 Discharged to Home. Impression: Unspecified abdominal pain; ph Polycystic ovarian syndrome. Condition is Stable. Discharge Instructions: Abdominal Pain, Adult. Forms are Medication Reconciliation Form, Thank You Letter, Antibiotic Education, Prescription Opioid Use. Follow up: Emergency Department; When: As needed; Reason: Worsening of condition. Follow up: Private Physician; When: 2 - 3 days; Reason: Recheck today's complaints, Continuance of care, Re-evaluation by your physician. Problem is new. Symptoms have improved. pm1
[2020-01-12 18:26] VITALS: TEMP 98.4; O2SAT 95
[2020-01-12 18:28] VITALS: BP 127/94
== END 2020-01-12 17:52 | disposition home or self-care (01) ==
LOC: ER 12:01
DX: E28.2 Polycystic ovarian syndrome (principal); R10.9 Unspecified abdominal pain; Z72.0 Tobacco use; Z88.5 Allergy status to narcotic agent
CPT/HCPCS: 87088; 85025; 80048; 36415; 81025; 80076; 83690; 74177; 76830; 96375; 96374; 99285; Q9967; J2270; J2405 ×2; 81003; 81015; 87086

== ENCOUNTER 2021-01-04 20:38 | Emergency (ER) | payer OTHER, SELFPAY ==
--- OUTSIDE RECORDS SUMMARY | 2021-01-04 20:42 | XMS REPORT | Continuity of Care Document ---
:1990 Author Organization [facility] t Address [address] [place] [address] Care Team Providers Name Role Phone EVELIA Attending Clinician Unavailable Cara Ortega Attending Clinician ANDRÉS Attending Clinician Unavailable LIVELY Attending Clinician Unavailable Gilda Bowen Attending Clinician Cara Ortega Admitting Clinician Gilda Bowen Admitting Clinician Morales Ruggiero Admitting Clinician Problems Condition Condition Condition Status Onset Resolution Last Treating Co mments Source Name Details Category Date Date Treatment Clinician Date ANKLE Diagnosis Active 2018-01-17 Mem oria INJURY 2-19 10:54:00 l ANKLE 00:00: [place] INJURY 00 Active 12/04/2017 [facility] N/A Diagnosis Active 2017-03-17 Mem oria 6- 09:25:00 l N/A 00:00: [place] 00 Active 03/16/2017 [facility] RIGHT Diagnosis Active 2017-02-03 Mem oria ANKLE 4-14 05:36:00 l FRACTURE RIGHT 00:00: Wing ANKLE 00 FRACTURE Active 01/27/2017 [facility] R TIB/FIB Diagnosis Active 2017-01-24 Memoria FX 4-04 21:52:00 l R 00:00: [place] TIB/FIB FX 00 Active 01/17/2017 [facility] Body mass Problem 2018-03-24 Me moria index 11:21:25 l (BMI) Body [place] 40.0-44.9, mass index adult (BMI) 40.0-44.9, adult 03/24/2018 [facility] Morbid Problem 2018-03-24 Memor ia (severe) 11:21:25 l obesity Morbid Wing due to (severe) excess obesity calories due to excess calories 03/24/2018 [facility] Nicotine Problem 2018-03-24 Mem oria dependence 11:21:25 l , Nicotine Melchor n cigarettes dependence , , uncomplica cigarettes akbar , uncomplica akbar 03/24/2018 [facility] Unspecifie Problem 2018-03-24 M emoria d asthma, 11:21:25 l uncomplica Melchor n akbar Unspecifie d asthma, uncomplica akbar 03/24/2018 [facility] Displaced Problem 2017-01-22 Me riddhi pilon 02:08:17 l fracture [place] of right Displaced tibia, pilon initial fracture encounter of right for closed tibia, fracture initial encounter for closed fracture 01/22/2017 [facility] Pilon Problem Active 2018-03-24 Memor ia fracture 11:21:25 l (disorder) Pilon Lenore nn fracture (disorder) Active Problem 03/24/2018 right [facility] DISPLACED Diagnosis Active 2017-01-24 Memoria PILON 21:52:00 l FRACTURE Wing OF RIGHT DISPLACED TIBIA, PILON FRACTURE OF RIGHT TIBIA, Active [facility] Closed Closed Problem Active [facility] displaced displaced ity of florencia don [place] fracture fracture Physic i of right of right ans tibia tibia Painful Painful Problem Active [facility] orthopaedi orthopaedi [place] y of c hardware c hardware [place] Physici ans Post-traum Post-traum Problem Active [facility] n[facility] atic atic [place] of right of right Physic i ankle ankle ans History of Past Illness Condition Condition Condition Status Onset Resolution Last Treating Co mments Source Name Details Category Date Date Treatment Clinician Date Traumatic Problem 2017-2018-03-24 2018-03-24 Memoria arthropath - 11:21:25 11:21:25 l y, right 04:03: Wing ankle and Traumatic 06 foot arthropath y, right ankle and foot 12/22/2017 03/24/2018 [facility] Allergies, Adverse Reactions, Alerts Allergy Allergy Status Severity Reaction(s) Onset Inactive Treating Comm ents Source Name Type Date Date Clinician Latex Latex Active Memoria l [place] codeine codeine Active Memoria sulfate sulfate l [place] HYDROcod HYDROcod Active Memori a one one l [place] Plastic Plastic Active Memoria Tape Tape l [place] traMADol traMADol Active Memori a l [place] Social History Social Habit Start Date Stop Date Quantity Comments Source Social History 2017-01-17 2017-01-17 [facility] 23:58:30 23:58:30 Medications Ordered Filled Start Stop Current Ordering Indication Dosage Frequency Signature Comments Components Source Medication Medication Date Date Medication? Clinician (SIG) Name Name Ondansetron Ondansetron Yes AMADO 1 Q8H TAKE 1 Univers 8 MG Oral 8 MG Oral 3-08 GAUVAIN TABLET ity of Tablet Tablet 00:00: M.D. Every 8 [place] Disintegrat Disintegrat 00 hours PRN Physici ing ing nauseau ans aspirin 325 2017- Yes 325 mg = 1 Memoria mg tablet 3-03 tab, PO, l 15:08: BID, # 84 [place] 00 tab, 0 Refill(s) Docusate Yes 100 mg = 1 Mem oria Sodium 100 3-03 cap, PO, l MG Oral 15:06: Q12H, PRN Lenore nn Capsule 04 as needed for constipati on, # 28 cap, 0 Refill(s) pregabalin Yes 100 mg = 1 M emoria 100 mg oral 3-03 cap, PO, l capsule 15:05: Q8H, # 30 Lenore nn 00 cap, 0 Refill(s) Oxycodone No 10 mg = 2 Mem oria Hydrochlori 3-03 tab, PO, l de 5 MG 15:05: Q4H, PRN Melchor n Oral Tablet 00 Pain Score 7-10, # 50 tab, 0 Refill(s) methocarbam No 1,000 mg = Memoria ol 500 mg 3-03 2 tab, PO, l oral tablet 15:05: Q8H, X 10 H ermann day, # 60 tab, 0 Refill(s) Ondansetron Yes 4 mg = 1 Me moria 4 MG Oral 3-03 tab, PO, l Tablet 15:05: BID, # 10 Melchor n [Zofran] 00 tab, 0 Refill(s) Robaxin No Notes: Memoria 3-03 (Same l 10:00: as:Robaxin [place] 00 ) meloxicam Yes 15 mg = 1 Mem oria 15 mg oral 3-02 tab, PO, l tablet 18:26: Daily, Melchor n 00 NEEDED, 0 Refill(s) Docusate No 100 mg, Memori a 12-15 Route: PO, l 15:00: BID, [place] Dosing Weight 102.273, kg, Start date: 12/15/17 9:00:00 HOT PIPE GAUGER, Duration: 30 day, Stop date: 01/13/18 17:00:00 CDT influenza No Notes: Memori a virus 12-15 (Same as: l vaccine, 15:00: Fluzone Melchor n inactivated 00 Quadrivale nt, Fluarix Quadrivale nt) For 3 years of age and older (0.5 mL IM) Shake well before use Ancef + No Notes: Memoria sterile 12-15 (Same As: l water 10 mL 04:20: Ancef, Herm nam Kefzol) MEDICATION WASTE Product Size: 1000 mg Product Wasted: ___ mg pregabalin No Notes: Memor ia 12-15 (Same as: l 04:20: Lyrica) [place] 00 aspirin 325 No Notes: (Do Memoria mg tablet 12-15 Not Crush) l 04:19: Do not [place] 00 crush or chew. sennosides, No 2 tab, Brent cuba HALFWAY 12-15 Route: PO, l 03:00: Dosing Weight 102.273, kg, Bedtime, Start date: 12/14/17 21:00:00 HOT PIPE GAUGER, Duration: 30 day, Stop date: 01/12/18 21:00:00 CDT Oxycodone No 5 mg, Memoria 12-15 Route: PO, l 00:02: Drug form: Wing 00 TAB, Q4H, Dosing Weight 102.273, kg, PRN Pain Score 4-6, Start date: 12/14/17 18:02:00 HOT PIPE GAUGER, Duration: 30 day, Stop date: 01/13/18 18:01:00 CDT Flumazenil No Notes: Memor ia 12-15 (Same as: l 00:02: Romazicon) [place] 00 Naloxone No Notes: Memoria 3- Same as l 00:02: Narcan [place] 00 Ondansetron No Notes: Brent cuba 3- (Same as: l 00:02: Zofran) Wing 00 MEDICATION WASTE Product Size: 4 mg Product Wasted: ___ mg Hydromorpho No 0.5 mg, Mem oria ne 12-15 Route: l 00:02: IVP, [place] 00 Q5Min, Dosing Weight 102.273, kg, PRN Pain Score 7-10, Start date: 12/14/17 18:02:00 HOT PIPE GAUGER, Duration: 4 doses or times, Stop date: Limited # of times Labetalol No 10 mg, 2 [place] 3-02 mL, Route: l 00:02: IVP, Drug form: INJ, Q5Min, Dosing Weight 102.273, kg, PRN Elevated BP, Start date: 12/14/17 18:02:00 HOT PIPE GAUGER, Duration: 5 doses or times, Stop date: 12/15/17 0:00:00 HOT PIPE GAUGER Hydralazine No Notes: Brent cub[place] 12-15 (Same as: l 00:02: [place] ) Push over 5 minutes Acetaminoph No Notes: Max Memoria en 12-15 acetaminop l 00:00: hen 4000 [place] 00 mg/day (4 gm/day). (Same as: Tylenol Extra Strength) Oxycodone No Notes: Memori a Hydrochlori 12-14 (Same as: l de 5 MG 23:20: Roxicodone Herm nam Oral Tablet ) Ondansetron No 4 mg, Memor ia 12-14 Route: l 23:20: IVP, Q8H, Wing 00 Dosing Weight 102.273, kg, PRN Nausea & Vomiting, Start date: 12/14/17 17:20:00 HOT PIPE GAUGER, Duration: 30 day, Stop date: 01/13/18 17:19:00 CDT Hydromorpho No Notes: Brent cub[place] ne 12-14 Same as l 23:20: Dilaudid [place] 00 Dilaudid No 0.5 mg, Memori a 12-14 Route: l 23:08: IVP, ONCE, [place] 00 Dosing Weight 102.273, kg, Priority: STAT, Start date: 12/14/17 17:08:00 HOT PIPE GAUGER, Stop date: 12/14/17 17:08:00 HOT PIPE GAUGER Docusate No Notes: Memoria Sodium 100 12-14 (Same as: l MG Oral 23:00: Colace) [place] Capsule (Do Not Crush) neostigmine No Route: IV, Memoria (ANES) 12-14 Drug form: l 22:49: INJ, ONCE, Stop date: 12/14/17 16:49:00 HOT PIPE GAUGER glycopyrrol No Route: IV, Memoria ate (ANES) 12-14 Drug form: l 22:49: INJ, ONCE, Stop date: 12/14/17 16:49:00 HOT PIPE GAUGER ondansetron No Route: IV, Memoria (ANES) 12-14 Drug form: l 22:40: INJ, ONCE, Stop date: 12/14/17 16:40:00 HOT PIPE GAUGER albuterol No Route: Memori a (ANES) 12-14 INHALATION l 20:40: , Drug form: AERO/A, ONCE, Stop date: 12/14/17 14:40:00 HOT PIPE GAUGER dexamethaso No Route: IV, Memoria ne (ANES) 12-14 Drug form: l 20:35: INJ, ONCE, Stop date: 12/14/17 14:35:00 HOT PIPE GAUGER rocuronium No Route: IV, M emoria (ANES) 12-14 Drug form: l 20:25: INJ, ONCE, Stop date: 12/14/17 14:25:00 HOT PIPE GAUGER lidocaine No Route: IV, Me moria (ANES) 12-14 Drug form: l 20:25: INJ, ONCE, Stop date: 12/14/17 14:25:00 HOT PIPE GAUGER propofol No Route: IV, Mem oria (ANES) 12-14 Drug form: l 20:25: INJ, ONCE, Stop date: 12/14/17 14:25:00 HOT PIPE GAUGER fentaNYL No Route: IV, Mem oria (ANES) 12-14 Drug form: l 20:25: INJ, ONCE, 00 Stop date: 12/14/17 14:25:00 HOT PIPE GAUGER ceFAZolin No Route: IV, Me moria (ANES) 12-14 Drug form: l 20:20: INJ, ONCE, [place] 00 Stop date: 12/14/17 14:20:00 HOT PIPE GAUGER acetaminoph No Route: IV, Memoria en (ANES) 12-14 Drug form: l 10 mg 20:07: INJ, Start Melchor n date: 12/14/17 14:07:00 HOT PIPE GAUGER, Stop date: 12/14/17 15:07:00 HOT PIPE GAUGER midazolam No Route: IV, Me moria (ANES) 12-14 Drug form: l 20:05: SOLN, 00 ONCE, Stop date: 12/14/17 14:05:00 HOT PIPE GAUGER Lactated No Route: IV, Mem oria Ringers 12-14 Total l Injection 19:31: Volume: Lenore nn IV (ANE) 00 1,000, 1000 mL Start date: 12/14/17 13:31:00 HOT PIPE GAUGER, Stop date: 12/14/17 14:31:00 HOT PIPE GAUGER Benadryl No Notes: Memoria 12-14 (Same as: l 19:21: Benadryl) Promethazin No Notes: Do M emoria e 12-14 not give l 19:21: IV push. (Same as: Phenergan) Ondansetron No Notes: Brent cub[place] 12-14 (Same as: l 19:21: Zofran) MEDICATION WASTE Product Size: 4 mg Product Wasted: ___ mg meloxicam No PO, Daily, Me moria - 0 l 19:00: Refill(s) Cephalexin Cephalexin Yes AMADO Q0.3333D TAKE 1 Univers 500 MG Oral 500 MG Oral 2-28 GAUVAIN CAPSULE 3 ity of Capsule Capsule 00:00: M.D. TIMES [place] 00 DAILY Physici UNTIL ans GONE. traMADol traMADol Yes AMADO Q6H TAKE 2 Univers HCl - 50 MG HCl - 50 MG 2-28 GAUVAIN TABLETS ity of Oral Tablet Oral Tablet 00:00: M.D. EVERY 6 [place] 00 HOURS. Physici ans Ondansetron Ondansetron Yes AMADO 1 Q8H TAKE 1 Univers 8 MG Oral 8 MG Oral 2-28 GAUVAIN TABLET ity of Tablet Tablet 00:00: M.D. Every 8 [place] Disintegrat Disintegrat 00 hours PRN Physici ing ing nauseau ans Meloxicam Meloxicam Yes AMADO TAKE 1 Univers 15 MG Oral 15 MG Oral 1-26 GAUVAIN TABLET ity of Tablet Tablet 00:00: M.D. DAILY [place] 00 NEEDED. Physici ans Meloxicam Meloxicam 2016-10 Yes AMADO 1 QD TAKE 1 Univers 15 MG Oral 15 MG Oral 2-15 GAUVAIN TABLET ity of Tablet Tablet 00:00: M.D. DAILY. Physici ans diazePAM 2 diazePAM 2 Yes DEVIN i po BID Univers MG Oral MG Oral 7-27 LIVELY prn spasm it y of Tablet Tablet 00:00: P.A. Physici ans Promethazin No Notes: Do M emoria e 03-17 not give l 18:42: IV push. (Same as: Phenergan) Ondansetron No Notes: Brent cub[place] 03-17 (Same as: l 18:42: Zofran) MEDICATION WASTE Product Size: 4 mg Product Wasted: ___ mg Flumazenil No Notes: Memor ia 03-17 (Same as: l 18:42: Romazicon) Naloxone No Notes: Memoria 03-17 Same as l 18:42: Narcan Hydromorpho No Notes: Brent cuba ne 03-17 Same as: l 18:42: Dilaudid lidocaine No Route: IV, Me moria (ANES) 03-17 Drug form: l 18:20: INJ, ONCE, Stop date: 03/17/17 13:20:00 CDT propofol No Route: IV, Mem oria (ANES) 03-17 Drug form: l 18:20: INJ, ONCE, Stop date: 03/17/17 13:20:00 CDT dexamethaso No Route: IV, Memoria ne (ANES) 03-17 Drug form: l 18:20: INJ, ONCE, Stop date: 03/17/17 13:20:00 CDT fentaNYL No Route: IV, Mem oria (ANES) 03-17 Drug form: l 18:20: INJ, ONCE, Stop date: 03/17/17 13:20:00 CDT ketOROLAC No IV, ONCE Brent cuba (ANES) 03-17 l 18:20: [place] 00 ondansetron No Route: IV, Memoria (ANES) 03-17 Drug form: l 18:20: INJ, ONCE, Stop date: 03/17/17 13:20:00 CDT midazolam No Route: IV, Me moria (ANES) 03-17 Drug form: l 18:17: SOLN, ONCE, Stop date: 03/17/17 13:17:00 CDT propofol No Route: IV, Mem oria (ANES) 03-17 Drug form: l (ANES) 18:05: INJ, Start Lenore date: 03/17/17 13:05:00 CDT, Stop date: 03/17/17 14:05:00 CDT acetaminoph No Route: IV, Memoria en (ANES) 03-17 Drug form: l (ANES) 17:45: INJ, Start Lenore date: 03/17/17 12:45:00 CDT, Stop date: 03/17/17 13:45:00 CDT ceFAZolin No Route: IV, Me moria (ANES) 6 Drug form: l (ANES) 17:37: INJ, Start Lenore date: 03/17/17 12:37:00 CDT, Stop date: 03/17/17 13:37:00 CDT LR 1000 mL No Route: IV, M emoria INJ (ANES) 6- Total l 17:22: Volume: Wing 1,000, Start date: 03/17/17 12:22:00 CDT, Stop date: 03/17/17 13:22:00 CDT ceFAZolin No Notes: Memori a 6- Same as: l 04:00: Ancef [place] 00 gabapentin Yes 600 mg = 2 M emoria 300 MG Oral 4-24 cap, PO, l Capsule 14:28: Q8H, # 60 Lenore nn 04 cap, 0 Refill(s) Docusate Yes 100 mg = 1 Mem oria Sodium 100 4-24 cap, PO, l MG Oral 14:27: Q12H, PRN Len[place] nn Capsule 58 as needed for constipati on, # 28 cap, 0 Refill(s) Aspirin 325 Yes 325 mg = 1 Memoria MG Enteric 4-24 tab, PO, l Coated 14:26: Daily, Do Melchor n Tablet 00 not take in combinatio n with Lovenos, # 18 tab, 0 Refill(s) methocarbam No See Memori a ol 500 mg 4-24 Instructio l oral tablet 14:26: ns, PRN as Wing 00 needed for spasm, 1-2 tab PO Q8H, # 40 cap, 0 Refill(s) acetaminoph No See Memori a en 500 mg 4-24 Instructio l oral tablet 14:26: ns, PRN as [place] 00 needed for pain, 1-2 tab PO Q6H not to exceed 4000 mg/day, # 50 tab, 0 Refill(s) ropivacaine No Notes: Brent cub[place] 4-24 Final l 13:36: concentrat Wing ion: Ropivacain e 0.2% 400 ml gabapentin No Notes: Memor ia 300 MG Oral -23 (Same as: l Capsule 21:00: Neurontin) Herm nam Oxycodone No Notes: Memori a Hydrochlori -23 (Same as: l de 5 MG 02:50: Roxicodone Herm nam Oral Tablet ) Methocarbam No Notes: Brent cuba ol -22 (Same l 05:00: as:Robaxin [place] ) Cefazolin No Notes: Memori a 4-22 (Same As: l 01:00: Ancef, [place] 00 Kefzol) Cefazolin FOR IV SET ONLY MEDICATION WASTE Product Size: 1000 mg Product Wasted: ___ mg Ofirmev No Notes: Memoria -21 Infuse l 23:00: over 15 Wing 00 minutes Do not exceed 4gm/day of acetaminop hen MEDICATION WASTE Product Size: 1000 mg Product Wasted: ___ mg Acetaminoph No Notes: Max Memoria en 02-03 acetaminop l 23:00: hen 4000 [place] 00 mg/day (4 gm/day). (Same as: Tylenol Extra Strength) Docusate No Notes: Memoria Sodium 100 02-03 (Same as: l MG Oral 22:00: Colace) [place] Capsule (Do Not Crush) Oxycodone No Notes: Memori a Hydrochlori 02-03 (Same as: l de 5 MG 21:28: Roxicodone Herm nam Oral Tablet ) gabapentin No Notes: Memor ia 300 MG Oral 02-03 (Same as: l Capsule 21:00: Neurontin) Herm nam 00 Lovenox No Notes: Memoria - (Same as: l 20:00: Lovenox) [place] ropivacaine No Notes: Brent cuba 02-03 Same as: l 18:06: Naropin [place] Ondansetron No Notes: Brent cuba - (Same as: l 17:36: Zofran) Wing MEDICATION WASTE Product Size: 4 mg Product Wasted: ___ mg Acetaminoph No 100.4 F, M emoria en 02-03 Start l 17:36: date: Wing 02/03/17 12:36:00 CDT, Duration: 30 day, Stop date: 03/05/17 12:35:00 CDT Lactated No 1,000 mL, Brent cuba Ringers 02-03 Rate: 125 l 1,000 mL 17:36: ml/hr, [place] 00 Infuse over: 8 hr, Route: IV, Dosing Weight 110.455 kg, Total Volume: 1,000, Start date: 02/03/17 12:36:00 CDT, Duration: 30 day, Stop date: 03/05/17 12:35:00 CDT Ondansetron No Notes: Brent cub[place] 02-03 (Same as: l 17:34: Zofran) MEDICATION WASTE Product Size: 4 mg Product Wasted: ___ mg Flumazenil No Notes: Memor ia 02-03 (Same as: l 17:34: Romazicon) Naloxone No Notes: Memoria 02-03 Same as l 17:34: Narcan Hydromorpho No 0.5 mg, Mem oria ne 02-03 Route: l 17:34: IVP, Q5Min, Dosing Weight 110.455, kg, PRN Pain Score 7-10, Start date: 02/03/17 12:34:00 CDT, Duration: 4 doses or times, Stop date: Limited # of times Oxycodone No Notes: Memori a 02-03 (Same as: l 17:34: Roxicodone ) glycopyrrol No Route: IV, Memoria ate (ANES) 02-03 Drug form: l 17:10: INJ, ONCE, Stop date: 02/03/17 12:10:00 CDT neostigmine No Route: IV, Memoria (ANES) 02-03 Drug form: l 17:10: INJ, ONCE, Stop date: 02/03/17 12:10:00 CDT albuterol No Route: Memori a (ANES) 02-03 INHALATION l 17:06: , Drug form: AERO/A, ONCE, Stop date: 02/03/17 12:06:00 CDT ondansetron No Route: IV, Memoria (ANES) 02-03 Drug form: l 16:59: INJ, ONCE, Stop date: 02/03/17 11:59:00 CDT hydromorpho No Route: IV, Memoria ne (ANES) 02-03 Drug form: l 16:49: INJ, ONCE, Stop date: 02/03/17 11:49:00 CDT dexamethaso No Route: IV, Memoria ne (ANES) 02-03 Drug form: l 14:59: INJ, ONCE, Stop date: 02/03/17 9:59:00 CDT propofol No Route: IV, Mem oria (ANES) 02-03 Drug form: l 13:39: INJ, ONCE, Stop date: 02/03/17 8:39:00 CDT lidocaine No Route: IV, Me moria (ANES) 02-03 Drug form: l 13:39: INJ, ONCE, Stop date: 02/03/17 8:39:00 CDT rocuronium No Route: IV, M emoria (ANES) 02-03 Drug form: l 13:39: INJ, ONCE, Stop date: 02/03/17 8:39:00 CDT fentaNYL No Route: IV, Mem oria (ANES) 02-03 Drug form: l 13:39: INJ, ONCE, Stop date: 02/03/17 8:39:00 CDT ceFAZolin No Route: IV, Me moria (ANES) 02-03 Drug form: l 13:34: INJ, ONCE, Stop date: 02/03/17 8:34:00 CDT midazolam No Route: IV, Me moria (ANES) 02-03 Drug form: l 13:34: SOLN, ONCE, Stop date: 02/03/17 8:34:00 CDT acetaminoph No Route: IV, Memoria en (ANES) 02-03 Drug form: l (ANES) 13:14: INJ, Start Lenore date: 02/03/17 8:14:00 CDT, Stop date: 02/03/17 9:14:00 CDT LR 1000 mL No Route: IV, M emoria INJ (ANES) 02-03 Total l 12:30: Volume: [place] 00 1,000, Start date: 02/03/17 7:30:00 CDT, Stop date: 02/03/17 8:30:00 CDT ceFAZolin No Notes: Memori a -21 Same as: l 04:00: Ancef Wing 00 Ibuprofen Yes 400 mg = 1 Me moria 400 MG Oral 4-06 tab, PO, l Tablet 21:37: Q8H, PRN Wing 00 Pain Score 4-6, X 14 day, # 42 tab, 0 Refill(s) methocarbam Yes 1,000 mg = Memoria ol 500 mg 4-06 2 tab, PO, l oral tablet 21:37: Q8H, PRN He r[place] 00 Muscle Spasms, X 14 day, # 84 tab, 0 Refill(s) gabapentin Yes 300 mg = 1 M emoria 300 MG Oral 4-06 cap, PO, l Capsule 21:37: Q8H, # 90 Lenore nn 00 cap, 0 Refill(s) enoxaparin Yes 40 mg = Brent cub[place] 40 mg/0.4 4-06 0.4 mL, l mL 21:37: SUB-Q, [place] subcutaneou 00 [id number], s solution X 21 day, # 8 mL, 0 Refill(s) Docusate Yes 100 mg = 1 Mem oria Sodium 100 4-06 cap, PO, l MG Oral 21:37: Q12H, # 28 Herm nam Capsule 00 cap, 0 Refill(s) acetaminoph Yes 1,000 mg = Memoria en 500 mg 4-06 2 tab, PO, l oral tablet 21:37: Q6H, X 14 H ermann 00 day, # 112 tab, 0 Refill(s) acetaminoph No Notes: Max Memoria en 4-06 acetaminop l 03:00: hen 4000 [place] 00 mg/day (4 gm/day). (Same as: Tylenol Extra Strength) Ibuprofen No Notes: Memori a 400 MG Oral 4-05 (Same as: l Tablet 15:57: Motrin) Wing 00 "Do Not Crush" Give with food. pneumococca No Notes: Brent cuba l capsular -05 (Same as: l polysacchar 14:00: Pneumovax H ermann vandana type 1 00 23) vaccine / Refrigerat pneumococca e l capsular polysacchar vandana type 10A vaccine / pneumococca l capsular polysacchar vandana type 11A vaccine / pneumococca l capsular polysacchar vandana type 12F vaccine / pneumococca l capsular polysacchar Oxycodone No Notes: Memori a Hydrochlori -05 (Same as: l de 5 MG 13:22: Roxicodone Herm nam Oral Tablet ) Lovenox No 40 mg, 0.4 Brent cub[place] 4-05 mL, Route: l 11:00: SUB-Q, Drug form: INJ, [id number], Dosing Weight 110, kg, Start date: 01/18/17 6:00:00 CDT, Duration: 30 day, Stop date: 02/16/17 6:00:00 CDT Cefazolin No Notes: Memori a -05 (Same As: l 03:00: Ancef, Kefzol) Cefazolin FOR IV SET ONLY MEDICATION WASTE Product Size: 1000 mg Product Wasted: _0__ mg sennosides, No Notes: Brent cub[place] HALFWAY 4-05 (Same as: l 02:00: Senokot) Docusate No 100 mg, 1 Brent cub[place] 4-05 cap, l 02:00: Route: PO, Drug form: CAP, Q12H, Dosing Weight 110, kg, Start date: 01/17/17 21:00:00 CDT, Duration: 30 day, Stop date: 02/16/17 9:00:00 CDT Morphine No Notes: Memoria 4-05 Dose: l 01:00: Delay: Basal rate: 4hr limit: (Same as:Sophia blood) gabapentin No Notes: Memor ia 4-05 (Same as: l 01:00: Neurontin) Ondansetron No Notes: Brent cuba 4-05 (Same as: l 01:00: Zofran) MEDICATION WASTE Product Size: 4 mg Product Wasted: ___ mg Bisacodyl No Notes: Memori a 4-05 (Same As: l 01:00: Dulcolax, Bisco-Lax) Methocarbam No Notes: Brent cuba ol -05 (Same l 01:00: as:Robaxin ) celecoxib No 200 mg, 1 Mem oria -05 cap, l 01:00: Route: PO, Drug form: CAP, Q12H, Dosing Weight 110, kg, Priority: NOW, Start date: 01/17/17 20:00:00 CDT, Duration: 48 hr, Stop date: 01/19/17 9:00:00 CDT Acetaminoph No Notes: Memoria en 01-18 MEDICATION l 01:00: WASTE Product Size: 1000 mg Product Wasted: ___ mg Naloxone No Notes: Memoria 01-18 Same as l 00:58: Narcan Ondansetron No Notes: Brent cuba -04 (Same as: l 21:05: Zofran) MEDICATION WASTE Product Size: 4 mg Product Wasted: ___ mg Flumazenil No Notes: Memor ia 04 (Same as: l 21:05: Romazicon) Naloxone No Notes: Memoria 4-04 Same as l 21:05: Narcan Hydromorpho No Notes: Brent cuba ne - Same as: l 21:05: Dilaudid neostigmine No Route: IV, Memoria (ANES) 01-17 Drug form: l 20:39: INJ, ONCE, Stop date: 01/17/17 15:39:00 CDT glycopyrrol No Route: IV, Memoria ate (ANES) 01-17 Drug form: l 20:39: INJ, ONCE, Stop date: 01/17/17 15:39:00 CDT midazolam No Route: IV, Me moria (ANES) 01-17 Drug form: l 20:29: SOLN, ONCE, Stop date: 01/17/17 15:29:00 CDT ondansetron No Route: IV, Memoria (ANES) 01-17 Drug form: l 20:29: INJ, ONCE, Stop date: 01/17/17 15:29:00 CDT acetaminoph No Route: IV, Memoria en (ANES) 01-17 Drug form: l 20:29: INJ, ONCE, Stop date: 01/17/17 15:29:00 CDT fentaNYL No Route: IV, Mem oria (ANES) 01-17 Drug form: l 20:07: INJ, ONCE, Stop date: 01/17/17 15:07:00 CDT rocuronium No Route: IV, M emoria (ANES) 01-17 Drug form: l 20:07: INJ, ONCE, Stop date: 01/17/17 15:07:00 CDT propofol No Route: IV, Mem oria (ANES) 01-17 Drug form: l 20:07: INJ, ONCE, Stop date: 01/17/17 15:07:00 CDT lidocaine No Route: IV, Me moria (ANES) 01-17 Drug form: l 20:07: INJ, ONCE, Stop date: 01/17/17 15:07:00 CDT ceFAZolin No Route: IV, Me moria (ANES) 01-17 Drug form: l 20:02: INJ, ONCE, Stop date: 01/17/17 15:02:00 CDT LR 1000 mL No Route: IV, M emoria INJ (ANES) 01-17 Total l 19:19: Volume: [place] 00 1,000, Start date: 01/17/17 14:19:00 CDT, Stop date: 01/17/17 15:19:00 CDT Sodium No 1,000 mL, Memori a Chloride 01-17 Rate: 75 l 0.154 18:58: ml/hr, [place] MEQ/ML 00 Infuse Injectable over: 13.3 Solution hr, Route: IV, Dosing Weight 111 kg, Total Volume: 1,000, Priority: STAT, Start date: 01/17/17 13:58:00 CDT, Duration: 1 doses or times, Stop date: 01/18/17 3:15:00 CDT Dilaudid No 2 mg, [facility] 4-04 Route: l 17:59: IVP, ONCE, [place] 00 Dosing Weight 111, kg, Priority: STAT, Start date: 01/17/17 12:59:00 CDT, Stop date: 01/17/17 12:59:00 CDT Morphine No Notes: [facility] 4-04 (Same l 16:09: as:MORPhin Wing 00 e Sulfate) Saline No Notes: [facility] Flush 0.9% -04 (Same as: l 15:14: BD Wing 00 Posiflush) Fentanyl No 50 [facility] 4-04 microgram, l 15:14: Route: Wign 00 IVP, ONCE, Dosing Weight 111, kg, Priority: STAT, Start date: 01/17/17 10:14:00 CDT, Stop date: 01/17/17 10:14:00 CDT Ondansetron No Notes: [place] 4-04 (Same as: l 15:14: Zofran) Wing 00 MEDICATION WASTE Product Size: 4 mg Product Wasted: ___ mg Vital Signs Vital Name Observation Time Observation Value Comments Source Systolic (mm Hg) 2017-12-16 13:45:00 [facility] Diastolic (mm Hg) 2017-12-16 13:45:00 Mem orial [place] Respitory Rate 2017-12-16 13:45:00 [facility] Temperature Oral (F) 2017-12-16 13:45:00 97.9 F [facility] [place] Heart Rate 2017-12-16 13:45:00 [facility] Respitory Rate 2017-12-16 10:30:00 Memori al [place] Systolic (mm Hg) 2017-12-16 10:30:00 Brent rial [place] Diastolic (mm Hg) 2017-12-16 10:30:00 Mem orial [facility] Heart Rate 2017-12-16 10:30:00 [facility] Temperature Oral (F) 2017-12-16 10:30:00 97.9 F [facility] Temperature Oral (F) 2017-12-16 05:46:00 98.1 F [facility] Systolic (mm Hg) 2017-12-16 05:46:00 [facility] Diastolic (mm Hg) 2017-12-16 05:46:00 [facility] [place] Heart Rate 2017-12-16 05:46:00 [facility] [place] Respitory Rate 2017-12-16 05:46:00 [facility] [place] Weight 2017-12-14 19:00:00 [facility] BMI Calculated 2017-12-14 19:00:00 [facility] [place] Height 2017-12-14 19:00:00 154.94 cm [facility] [place] Systolic (mm Hg) 2017-03-17 20:22:00 [facility] [place] Diastolic (mm Hg) 2017-03-17 20:22:00 [facility] [place] Respitory Rate 2017-03-17 20:22:00 [facility] [place] Systolic (mm Hg) 2017-03-17 19:15:00 [facility] [place] Diastolic (mm Hg) 2017-03-17 19:15:00 [facility] Respitory Rate 2017-03-17 19:15:00 [facility] Systolic (mm Hg) 2017-03-17 19:00:00 [facility] Diastolic (mm Hg) 2017-03-17 19:00:00 [facility] [place] Respitory Rate 2017-03-17 19:00:00 [facility] [place] BMI Calculated 2017-03-17 15:10:00 [facility] [place] Weight 2017-03-17 15:10:00 [facility] Height 2017-03-17 15:10:00 157.48 cm [facility] [place] Heart Rate 2017-03-17 15:10:00 [facility] [place] Weight 2017-03-16 19:50:00 [facility] [place] BMI Calculated 2017-03-16 19:50:00 [facility] [place] Height 2017-03-16 19:50:00 157.48 cm [facility] Heart Rate 2017-02-06 16:21:00 [facility] [place] Systolic (mm Hg) 2017-02-06 16:21:00 [facility] [place] Diastolic (mm Hg) 2017-02-06 16:21:00 [facility] Respitory Rate 2017-02-06 16:21:00 [facility] [place] Temperature Oral (F) 2017-02-06 12:14:00 98.5 F [facility] [place] Respitory Rate 2017-02-06 12:14:00 [facility] [place] Heart Rate 2017-02-06 12:14:00 [facility] Systolic (mm Hg) 2017-02-06 12:14:00 [facility] [place] Diastolic (mm Hg) 2017-02-06 12:14:00 [facility] Systolic (mm Hg) 2017-02-06 08:12:00 [facility] Diastolic (mm Hg) 2017-02-06 08:12:00 [facility] Heart Rate 2017-02-06 08:12:00 [facility] [place] Respitory Rate 2017-02-06 08:12:00 [facility] [place] Temperature Oral (F) 2017-02-06 08:12:00 97.7 F [facility] Temperature Oral (F) 2017-02-06 04:15:00 98.2 F [facility] [place] Weight 2017-02-03 22:08:00 [facility] Weight 2017-02-03 11:41:00 [facility] [place] BMI Calculated 2017-02-03 11:41:00 [facility] [place] Height 2017-02-03 11:41:00 157.48 cm [facility] Weight 2017-02-01 14:49:00 [facility] BMI Calculated 2017-02-01 14:49:00 [facility] Height 2017-02-01 14:49:00 157.48 cm [facility] [place] Heart Rate 2017-01-19 21:22:00 [facility] [place] Temperature Oral (F) 2017-01-19 21:22:00 98.6 F [facility] [place] Systolic (mm Hg) 2017-01-19 21:22:00 [facility] [place] Diastolic (mm Hg) 2017-01-19 21:22:00 [facility] [place] Respitory Rate 2017-01-19 21:22:00 [facility] [place] Respitory Rate 2017-01-19 17:26:00 [facility] [place] Heart Rate 2017-01-19 17:26:00 [facility] Systolic (mm Hg) 2017-01-19 17:26:00 Brent [facility] [place] Diastolic (mm Hg) 2017-01-19 17:26:00 [facility] [place] Temperature Oral (F) 2017-01-19 17:26:00 98.7 F [facility] Systolic (mm Hg) 2017-01-19 15:21:00 Brent ovalles [place] Diastolic (mm Hg) 2017-01-19 15:21:00 [facility] [place] Respitory Rate 2017-01-19 15:21:00 [facility] Heart Rate 2017-01-19 15:21:00 [facility] [place] Temperature Oral (F) 2017-01-19 15:21:00 98 F [facility] [place] BMI Calculated 2017-01-17 23:47:00 [facility] Height 2017-01-17 23:47:00 157.48 cm [facility] Weight 2017-01-17 23:47:00 [facility] [place] BMI Calculated 2017-01-17 14:54:00 [facility] [place] Weight 2017-01-17 14:54:00 [facility] Height 2017-01-17 14:54:00 157.48 cm [facility] [place] Procedures Procedure Date / Time Performing Clinician Source Performed [U] XRAY ANKLE MIN 3 [facility] 2018-12-17 00:00:00 [facility] [place] RIGHT [id number] Physicians [U] XRAY ANKLE MIN 3 [facility] 2018-07-04 00:00:00 [facility] [place] RIGHT [id number] Physicians [U] XRAY ANKLE MIN 3 [facility] 2018-05-01 00:00:00 [facility] [place] RIGHT [id number] Physicians [U] XRAY ANKLE MIN 3 [facility] 2018-03-20 00:00:00 [facility] [place] RIGHT 78086 Physicians [U] XRAY ANKLE MIN 3 [facility] 2018-03-13 00:00:00 [facility] [place] RIGHT 55950 Physicians [U] XRAY ANKLE MIN 3 [facility] 2018-02-12 00:00:00 [facility] [place] RIGHT 54837 Physicians [U] XRAY ANKLE MIN 3 [facility] 2018-01-15 00:00:00 [facility] [place] RIGHT 51919 Physicians [U] XRAY ANKLE MIN 3 [facility] 2017-12-28 00:00:00 [facility] [place] RIGHT 09924 Physicians [U] XRAY ANKLE MIN 3 [facility] 2017-11-16 00:00:00 [facility] [place] RIGHT 12028 Physicians [U] XRAY ANKLE MIN 3 [facility] 2017-09-28 00:00:00 [facility] [place] RIGHT [id number] Physicians [U] XRAY TIBIA FIBULA 2 2017-09-28 00:00:00 Univ [facility] RIGHT [id number] Physicians Assess fracture [facility] care<sup>1</sup> Bilateral tubal [facility] ligation<sup>2</sup> Dissection tonsillectomy Juvenal Dimas Examination of joint of [facility] foot<sup>3</sup> Plan of Care Planned Activity Planned Date Details Comments Source Diagnostic Test 2018-03-14 [U] XRAY ANKLE [facility] Pending 00:00:00 MIN 3 [facility] RIGHT Physicians [id number] [code = 85803] Diagnostic Test 2017-09-29 [U] XRAY ANKLE [facility] Pending 00:00:00 MIN 3 [facility] RIGHT Physicians [id number] [code = 00212] Diagnostic Test 2017-09-29 [U] XRAY TIBIA [facility] Pending 00:00:00 FIBULA 2 [facility] Physicians RIGHT [id number] [code = 04109] Encounters Start End Encounter Admission Attending Care Care Encounter Source Date/Time Date/Time Type Type Clinicians Facility Department ID 2018-12-19 2018-12-19 [facility] [id number] Univers 09:45:00 09:45:00 t; AMADO [facility] britta ORTEGA M.D. [facility] Madiha FRAGA M.D. ans 2018-07-04 2018-07-04 [facility]ANIE [facility] [id number] Univers 09:45:00 09:45:00 t; AMADO [facility] asad ORTEGA M.D. [place] Madiha FRAGA M.D. ans 2018-05-02 2018-05-02 [facility]ANIE [facility] [id number] Univers 09:45:00 09:45:00 t; AMADO [facility] asad ORTEGA M.D. [place] Madiha FRAGA M.D. ans 2018-03-21 2018-03-21 TIFFANIE [facility] [id number] Univers 10:00:00 10:00:00 t; AMADO [facility] [place], Madiha Gilbert M.D. [place] 2018-03-14 2018-03-14 Celine ORTEGA [facility] Orthopedics [id number] Univers 09:15:00 09:15:00 t; AMADO [facility] Miriam ORTEGA Physici M.D. ans 2018-02-14 2018-02-14 Celine ORTEGA [facility] Orthopedics [id number] Univers 09:45:00 09:45:00 t; AMADO [facility] Mirima ORTEGA Physici M.D. ans 2018-01-17 2018-01-17 Celine ORTEGA [facility] Orthopedics [id number] Univers 09:45:00 09:45:00 t; AMADO [facility] Miriam ORTEGA Physici M.D. ans 2018-01-01 2018-01-01 Celine ORTEGA [facility] Orthopedics [id number] Univers 09:45:00 09:45:00 t; AMADO [facility] Miriam ORTEGA Physici M.D. [place] 2017-12-14 2017-12-16 Krishna Ortega [facility] [id number] 11:36:00 11:15:00 Amado Marroquin 2017-11-22 2017-11-22 Celine ORTEGA [facility] [id number] Univers 13:15:00 13:15:00 t; britta FRAGA M.D. [place] TAGGART, Physici M.D. [facility] 2017-11-17 2017-11-17 Celine ORTEGA [facility] Orthopedics [id number] Univers 11:15:00 11:15:00 t; AMADO [facility] Miriam ORTEGA Physici M.D. [place] 2017-11-10 2017-11-10 Celine ORTEGA [facility] [id number] Univers 10:00:00 10:00:00 t; britta FRAGA M.D. [place] TAGGART, Physici M.D. ans 2017-11-09 2017-11-09 Appointchely BOWEN, [facility] [id number] Univers 10:15:00 10:15:00 t; JOSEPH BOWEN ity o f JOSHUA, M.D. [place] Miriam Physic ans 2017-09-29 2017-09-29 [facility] [id number] Univers 10:00:00 10:00:00 t; AMADO [facility] asad ORTEGA M.D. [place] Madiha FRAGA M.D. [facility] [place] 2017-08-18 2017-08-18 [facility] EVELIA, [facility] [id number] Univers 14:15:00 14:15:00 t; britta FRAGA M.D. [place] Madiha FRAGA M.D. [facility] 2017-08-18 2017-08-18 [facility] EV[facility]IA [facility] Orthopedics [id number] Univers 10:00:00 10:00:00 t; AMADO [facility] asad ORTEGA M.D. [place] Madiha FRAGA M.D. [facility] 2017-08-10 2017-08-10 [facility] RENEE, [facility] [id number] Univers 10:15:00 10:15:00 t; DEVIN D[facility]AN [facility] [place] [place] [facility] Physici ans 2017-05-11 2017-05-11 [facility], [facility] [id number] Univers 10:15:00 10:15:00 t; DEVIN D[facility]AN [facility] [place] [place] [facility] Physici ans 2017-04-13 2017-04-13 Appointchely DURAN, [facility] [id number] Univers 10:15:00 10:15:00 t; DEV[place] D[facility]AN [facility] [place] [place] [facility] Physici ans 2017-03-17 2017-03-17 Krihsna Bowen [facility] [id number] 09:23:00 23:59:00 Joseph Vo 2017-03-17 2017-03-17 Appointchely BOWEN, [facility] [id number] Univers 08:30:00 08:30:00 t; JOSEPH BOWEN ity o f JOSHUA, M.D. [facility]. Physici ans 2017-03-16 2017-03-16 Appointchely RENEE, TIFFANIE UTP [id number] Univers 10:15:00 10:15:00 t; DEVIN D[facility]AN [facility] [place] [facility] Physici ans 2017-02-23 2017-02-23 Appointmen ANDRÉS TIFFANIE UTP [id number] Univers 10:15:00 10:15:00 t; JOSEPH BOWEN ity o f JOSHUA, M.D. [facility] Physici ans 2017-02-16 2017-02-16 Appointchely RENEE, TIFFANIE UTP [id number] Univers 11:00:00 11:00:00 t; DEV[place] DURAN [facility] [place] [facility] Physici ans 2017-02-03 2017-02-06 Outpatient Andrés [facility] [id number] 05:27:00 13:33:00 Joseph 00 Gilda 2017-02-03 2017-02-03 Appointchely BOWEN TIFFANIE UTP [id number] Univers 07:30:00 07:30:00 t; JOSEPH BOWEN ity o f JOSHUA, M.D. [facility] Physici ans 2017-01-26 2017-01-26 Appointchely RENEE, [facility] UTP [id number] Univers 09:15:00 09:15:00 t; DEVIN DURAN [facility] [place] [place] [facility] Physici ans 2017-01-17 2017-01-19 Outpatient Andrés [facility] [id number] 09:54:00 18:43:00 Joseph 94 Gilda Results Test Description Test Time Test Comments Results Result [facility] e Comments [U] XRAY ANKLE 2018-07-04 Images [facility] 3 VWS RIGHT 09:06:00 acquired, not [place] [id number] reported on Physicians this accession number. [U] XRAY ANKLE 2018-03-21 Images University [facility] 3 VWS RIGHT 09:40:00 acquired, not [place] [id number] reported on Physicians this accession number. [U] XRAY ANKLE 2018-02-14 Images [place] [address] VWS RIGHT 09:10:00 acquired, not [place] [id number] reported on Physicians this accession number. [U] XRAY ANKLE 2018-01-[address] RIGHT 09:46:00 acquired, not [place] [id number] reported on Physicians this accession number. [U] XRAY ANKLE 2018-01-[address] RIGHT 10:04:00 acquired, not [place] [id number] reported on Physicians this accession number. HEMATOLOGY 2017-12-16 1.7 [facility] 11:47:00 [place] HEMATOLOGY 2017-12-16 0.8 [facility] 11:47:00 [place] HEMATOLOGY 2017-12-16 0.3 [facility] 11:47:00 [place] HEMATOLOGY 2017-12-16 7.3 [facility] 11:47:00 [facility] HEMATOLOGY 2017-12-16 17.0 [facility] 11:47:00 [place] HEMATOLOGY 2017-12-16 0.2 [facility] 11:47:00 [facility] HEMATOLOGY 2017-12-16 7.8 [facility] 11:47:00 [facility] HEMATOLOGY 2017-12-16 74.7 [facility] 11:47:00 [facility] HEMATOLOGY 2017-12-16 9.6 [facility] 11:47:00 [facility] HEMATOLOGY 2017-12-16 168 [facility] 11:47:00 [place] HEMATOLOGY 2017-12-16 14.7 [facility] 11:47:00 [place] HEMATOLOGY 2017-12-16 37.6 [facility] 11:47:00 [facility] HEMATOLOGY 2017-12-16 4.19 [facility] 11:47:00 [place] HEMATOLOGY 2017-12-16 89.6 [facility] 11:47:00 [place] HEMATOLOGY 2017-12-16 33.5 [facility] 11:47:00 [facility] HEMATOLOGY 2017-12-16 12.6 [facility] 11:47:00 [facility] HEMATOLOGY 2017-12-16 11:47:00 Test Item Value Reference Range Interpretation Comme nts MCH (test code = MCH) 30.0 pg 27.0-31.0 [facility] FjfjmvxQNKYWNAFCF4733-90-38 11:47:009.7[facility]ann[facility]OLOGY 2017-12-15 11:01:0037.8[facility] AlwlepyLVKUHUZARI7660-93-01 11:01:0012.6[facility] HuomqqvSMSJDAPZTC9394-10-31 11:01:004.26[facility] HrrgyfuDLARHHQWKT2913-49-96 11:01:0013.1[facility] KsfruhiFUBMJLEYXE4025-18-88 11:01:0010.0[facility] SCCAGAFTXE4521-77-53 11:01:43302Fcfdlach UlkrlvxVFOOQZFLTJ9446-54-97 11:01:00 14.1[facility] NdxjhypOXWYISXNUC4533-59-08 11:01:00 Test Item Value Reference Range Interpretation Comments MCH (test code = MCH) 29.6 pg 27.0-31.0 [facility] VopcvlmVMMICVHIRY9680-92-07 11:01:0088.7[facility] HermannHEMATOLOGY 2017-12-15 11:01:0033.4[facility] PsbmyggEDNUVPOTAY4921-05-52 11:01:000.0[facility] TssicmdPUDIGFTAEO9353-04-37 11:01:000.6[facility] LxyxlerJXJKFGOOPX2261-77-85 11:01:0012.2[facility] MmhaomxVLVYIMUFZF4601-85-92 11:01:002.8[facility] [place] FWZINHYFLB4224-95-15 11:01:000.4[facility] UhsrksyYMWWJYDSUS3165-05-75 11:01:004.4 Memorial FhgfbflQJSVFJPJAP1230-88-24 11:01:000.0[facility] HermannHEMATOLOGY 2017-12-15 11:01:0092.8[facility]annBL[facility]OD BANK TBVMSCM5174-27-27 19:05:00 Negative (12/14/17 1:05 PM)[facility] XophptoPZLKKAUJOF1959-37-69 19:05:0041.4 Memorial BvlwqeiTUTKDYSOWG7783-56-91 19:05:0014.0[facility][U] XRAY ANKLE MIN 3 VWS RIGHT [id number] 11:48:00Images acquired, not reported on this accession number.[facility] Physicians[U] XRAY ANKLE MIN 3 VWS RIGHT [id number] 10:27:00Images acquired, not reported on this accession number. [facility] Physicians[U] XRAY ANKLE MIN 3 VWS RIGHT [id number] 09:26:00Images acquired, not reported on this accession number.[facility] Physicians[U] XRAY TIBIA FIBULA 2 VWS RIGHT [id number] 09:26:00Images acquired, not reported on this accession number.[facility] Physicians YRWJQKTNUC3069-50-63 09:51:01507Sdcjkpwh KqsmsuyBWSYVNIHBR1167-16-52 09:51:008.6 [facility] BalieywRUUMJMCPBT3209-05-90 09:51:003.54[facility] HermannHEMATOLOGY 2017-02-06 09:51:003.9[facility] SuloyvxPVBGWKUYMF0627-48-00 09:51:0087.5[facility] UwizvhiZOCEHSJBWW4041-18-42 09:51:0013.6[facility] XqpozueSUUCLWRSJF4967-43-76 09:51:0033.5[facility] WmbypzgXVMVQJJNEN4292-97-36 09:51:00 Test Item Value Reference Range Interpretation Comments MCH (test code = MCH) 29.3 pg 27.0-31.0 [facility] KahrqwmCJTREHFIYZ0446-80-83 09:51:0031.0[facility] HermannHEMATOLOGY 2017-02-06 09:51:0010.4[facility] VcmuqsdHYQSCXBUZQGI7430-35-11 05:31:0014.4 [facility] VoraxrnAMZRYUDRAIVM4449-38-05 05:31:82213Jwdkfyje HermannELECTROLYTES 2017-02-04 05:31:0011[facility] OyfdgkfDDYKOQLKNBTX2297-74-50 05:31:000.67[facility] WmugvcaNLEATSSGIPTV1653-83-65 05:31:0094[facility] ZnxyctrOAQYMPMKWYQR1462-76-96 05:31:008.5[facility] FkfsnngOPBHDOSDFJNY5589-29-25 05:31:75848Ypctzbst Wing QHIDFVJMAJNQ7628-58-47 05:31:004.4[facility] SdabrraOYINTXNGUNQI9423-15-88 05:31:0021[facility] UbghbnfPKIGOOEIGRNQ5949-94-19 05:31:66453Vdrucxuw [place] QTVMDWVPMA6778-03-84 05:31:0032.1[facility] KpebeftLMDVYWXFYC5872-08-50 05:31:00 277[facility] LaytapaOMGGICCYDJ6014-33-02 05:31:009.2[facility] HermannHEMATOLOGY 2017-02-04 05:31:0013.7[facility] PbacvzfBHUUKEXGVE0540-65-67 05:31:00 Test Item Value Reference Range Interpretation Comments MCH (test code = MCH) 28.8 pg 27.0-31.0 [facility] TganqkhQSFJAXHJWH2721-13-11 05:31:0032.6[facility] HermannHEMATOLOGY 2017-02-04 05:31:0088.4[facility] LxmpuhvCNKPSOSRXJ6439-69-14 05:31:008.1[facility] VcokizaAMUCZBCITN9635-04-78 05:31:003.63[facility] EvyxysjEUBWJJWSEN2207-32-61 05:31:0010.5[facility] MyedhseLKTMYRNOBF3917-24-73 05:31:000.6[facility] BMSQHEXZLV0177-11-53 05:31:000.4[facility] FmqzelyGFOAGBLMXZ8813-49-81 05:31:006.7 [facility] OsmvonoDWWSJPABKJ4716-48-33 05:31:000.7[facility] HermannHEMATOLOGY 2017-02-04 05:31:009.1[facility] KcgxvhkLHXXAHMRML5676-48-88 05:31:007.emorial KdsrotcETKRTZRXOX9248-49-88 05:31:000.1[facility] BrbyybqCCJWJUTINN8634-73-30 05:31:0082.8[facility] MlzexjvGBLPKNGYEJ5608-85-58 11:50:18848Eydcpyoo [place] DMUYGHYAPF2540-63-90 11:50:00 Test Item Value Reference Range Interpretation Comments MCH (test code = MCH) 28.7 pg 27.0-31.0 Memorial BefgcphSEQWVESLBI7294-26-23 11:50:0088.0[facility] HermannHEMATOLOGY 2017-02-03 11:50:0013.6[facility] VjruskhGEVMSIRSYG2091-07-07 11:50:008.6[facility] TecvcngMUTQVOKUHA0515-02-09 11:50:0032.6[facility] LstoiigLSVPKJCBAT4484-61-53 11:50:0036.3[facility] QrwujgbHNMJIXXUNQ2652-29-84 11:50:0011.9[facility] [place] LYQZNJFDCK4524-68-04 11:50:004.13[facility] PootqujNZANHLITQK3712-39-40 11:50:00 5.5[facility] JktdnkwUWPUBSHLUQ0146-43-34 11:50:003.3[facility] HermannHEMATOLOGY 2017-02-03 11:50:000.6[facility] ApphgxbQICBCWQONS7244-58-94 11:50:000.6[facility] TmjyocoYWCMFGDBVY1960-00-64 11:50:001.5[facility] FnfqwopPKVVRSBJQJ4491-39-76 11:50:000.1[facility] YduvzjiHAHADLDZCL9189-97-03 11:50:001.4[facility] [place] YJLKZTFALY4018-09-00 11:50:0059.7[facility] HjvslxgTSBNEYBGXY5987-07-03 11:50:00 11.2[facility] WcrlyngXIHRVJULVQ5407-71-99 11:50:0027.1[facility] HermannCHEM PANEL 2017-01-17 21:17:002.0[facility] HermannDRUG CTGBNW9361-43-71 16:49:00See Note *NA*(01/17/17 11:49 AM)[facility]annDR[facility] VVAKKW8310-55-98 16:49:00Negative *NA*(01/17/17 11:49 AM)[facility]annDR[facility] DNCTBN8786-19-99 16:49:00Negative *NA*(01/17/17 11:49 AM)[facility]annDR[facility] GHYTNS3484-57-86 16:49:00Negative *NA*(01/17/17 11:49 AM)[facility]annDR[facility] WVYZLJ5638-46-52 16:49:00Negative *NA*(01/17/17 11:49 AM)[facility]annDR[facility] LZXJLC9024-27-85 16:49:00Negative *NA*(01/17/17 11:49 AM)[facility]annDR[facility] PZFSAD3237-06-06 16:49:00Negative *NA*(01/17/17 11:49 AM)[facility]annDR[facility] UKBLYY3258-70-81 16:49:00Negative *NA*(01/17/17 11:49 AM)[facility]ann[facility] AND FGRDV9054-35-38 16:49:00Negative (01/17/17 11:49 AM)[facility]ann[facility] AND JOBJN3787-67-51 16:49:00Yellow *NA*(01/17/17 11:49 AM)[facility] AND GXCSX4680-09-22 16:49:000.2 [facility] FJGQD1624-26-28 16:49:00Negative (01/17/17 11:49 AM) [facility] ZFRQQ3123-86-34 16:49:00Clear (01/17/17 11:49 AM) [facility] EZECM9099-76-72 16:49:00Negative (01/17/17 11:49 AM) [facility] BMYQO6424-42-28 16:49:00Negative *NA*(01/17/17 11:49 AM) [facility] TIXFL0666-99-24 16:49:00 Test Item Value Reference Range Interpretation Comments UA pH (test code = UA pH) 6.5 1 5.0-8.0 [facility] SCRRY4930-06-99 16:49:00 Test Item Value Reference Range Interpretation Comments UA Spec Grav (test code = UA Spec 1.010 1 Grav) [facility] AND IDBEP8815-21-07 16:49:00None Seen (01/17/17 11:49 AM) [facility] HermannCHEM QJUVU5426-04-60 15:35:52663Kihtmqeq HermannCHEM PANEL 2017-01-17 15:35:000.80[facility] HermannCHEM VFMXA9288-92-54 15:35:0090Mem[facility] HermannCHEM WAHSC8706-96-51 15:35:009[facility] HermannCHEM WPOCF6465-07-63 15:35:16455Ufzylyhf HermannCHEM EFUVU2578-97-14 15:35:44918Shrmsmrt HermannCHEM ETNQF3486-98-77 15:35:004.0[facility] HermannCHEM JVLJO0352-57-60 15:35:0022 [facility] HermannCHEM BZWEX3696-62-50 15:35:008.4[facility] HermannCHEM PANEL 2017-01-17 15:35:0018.0[facility] HermannCHEM YWFJZ8056-55-08 15:35:002.4[facility] QmlebgyKHICLGREFIVSB7358-99-11 15:35:00Negative (01/17/17 10:35 AM)[facility] DevywckYURKCNMPNT4439-64-60 15:35:000.7[facility] DkibjwkQAFRBGPZKZ5176-11-75 15:35:001.2[facility] XejnwfmEYYFRZEBER6590-57-70 15:35:006.8[facility] [place] STKROYOCMK3125-56-42 15:35:000.1[facility] MsdlqceBTFPTQYHES9915-62-14 15:35:000.2 [facility] AbdojavICFBSEQWMG1422-41-47 15:35:008.2[facility] HermannHEMATOLOGY 2017-01-17 15:35:000.6[facility] VfpggwzHJSMMEIULL3465-83-51 15:35:0014.1[facility] UyidjdiIDTWOJPHLV3541-04-52 15:35:0076.9[facility] HaiiasdPQIECEALLA7630-70-94 15:35:0036.6[facility] GbciscpHYVZIXGHWP0297-02-27 15:35:0012.2[facility] [place] WEARRECVRO8546-86-98 15:35:00 Test Item Value Reference Range Interpretation Comments MCH (test code = MCH) 29.7 pg 27.0-31.0 [facility] QtxxcwyGIRUXRONTD8112-71-61 15:35:0089.0[facility] HermannHEMATOLOGY 2017-01-17 15:35:63090Clkmgien IaphdbyUXDMGTCSEO2254-10-36 15:35:0013.8[facility] VewvqxoHJTBRUFIGZ2961-15-10 15:35:0033.4[facility] CouvspfJLYTQNNQHO7576-12-70 15:35:004.11[facility] RphdcjkCMKGBWOIFR9305-70-12 15:35:008.8[facility] KHHLXZVKAR2930-48-98 15:35:009.4[facility] ItbozniGISZXLTBTG6546-33-94 15:35:00 Test Item Value Reference Range Interpretation Comments R-time Rapid (test code = R-time 0.6 min 0.4-0.7 Rapid) [facility]villeOdyenohNOOBSVKWYY3055-27-31 15:35:00 Test Item Value Reference Range Interpretation Comments Split Point Rapid (test code = Split 0.4 min Point Rapid) [facility]villeMujizutOMLTLHVUDI8196-00-15 15:35:00 Test Item Value Reference Range Interpretation Comments ACT (TEG) Rapid (test code = ACT (TEG) 105 s 86-118 Rapid) [id number] 15:35:00 Test Item Value Reference Range Interpretation Comments K-time Rapid (test code = K-time 0.8 min 0.6-2.3 Rapid) [facility]DkgczlfBTQURGEJJA3552-17-90 15:35:00 Test Item Value Reference Range Interpretation Comments Angle Rapid (test code = Angle 78 degrees 64-80 Rapid) [facility] Northea[id number] 15:35:000.7[facility]annHEMATOLOGY 2017-01-17 15:35:0011.9[facility] OmhtpesEVQMHPRJAP2845-42-93 15:35:00 Test Item Value Reference Range Interpretation Comments Max Amplitude Rapid (test code = Max 70 mm 52-71 Amplitude Rapid) [facility] NortheastLmjochaZPVRVBOCEX2428-54-83 15:35:000.061[facility] CenterannTOXICOLOGY 2017-01-17 15:35:0061[facility] [id number] 15:34:00 Negative (01/17/17 10:34 AM)[facility]
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
[2021-01-04 23:33] VITALS: BP 149/102; TEMP 98.2; O2SAT 100
--- NOTE | 2021-01-05 07:38 | RAD REPORT ---
EXAM DESCRIPTION: RAD - Elbow Right 3 View - 01/04/2021 10:56 pm CLINICAL HISTORY: Pain;Deformity COMPARISON: No comparisonsNone. FINDINGS: No fracture is identified and no elevated posterior fat pad. There is no dislocation or pe riosteal reaction noted. No foreign body or other soft tissue abnormality. No other significant findi ng. IMPRESSION: Negative right elbow examination.
== END 2021-01-04 23:28 | disposition home or self-care (01) ==
LOC: ER 20:38
DX: S50.01XA Contusion of right elbow, initial encounter (principal); W23.0XXA Caught, crushed, jammed, or pinched between moving objects, initial encounter; Y93.9 Activity, unspecified; Y92.9 Unspecified place or not applicable; Z88.6 Allergy status to analgesic agent; F17.210 Nicotine dependence, cigarettes, uncomplicated
CPT/HCPCS: 99283

== ENCOUNTER 2022-01-20 11:30 | Emergency (ER) | payer SELFPAY ==
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
[2022-01-20 12:38] LABS: Urine Blood Trace-intact (Negative); Urine Glucose Negative (Negative); Urine Protein Negative (Negative); Urine Specific Gravity >=1.030 (1.005-1.030)
[2022-01-20] MEDS ORDERED: ONDANSETRON 4 MG/2 ML VIAL ONE (12:47)
[2022-01-20 12:51] LABS: Urine Specific Gravity/Preg >1.030 (1.005-1.030)
[2022-01-20 12:54] LABS: Absolute Lymphocytes (CBC) 0.7 K/uL (0.7-4.9); Hematocrit 32.3 % (36.0-45.0); Lymphocytes % 13.7 % (15.3-44.8); MPV 7.9 fL (7.6-11.3); RBC Red Blood Cell Count 4.32 M/uL (3.86-4.86)
[2022-01-20] MEDS ORDERED: MORPHINE 4 MG/ML SYR ONE (12:59)
[2022-01-20 13:39] LABS: Albumin 3.7 g/dL (3.4-5.0); Bilirubin Total 0.5 mg/dL (0.2-1.0); Potassium 4.1 mmol/L (3.5-5.1); Protein, Total 7.5 g/dL (6.4-8.2)
[2022-01-20] MEDS ORDERED: KETOROLAC 30 MG/ML INJ ONE (14:10)
--- NOTE | 2022-01-20 14:41 | RAD REPORT ---
EXAM DESCRIPTION: US - Transvaginal Study Probe - 01/20/2022 1:48 pm CLINICAL HISTORY: pelvic pain COMPARISON: Transvaginal Study Probe dated 01/12/2020 TECHNIQUE: Endovaginal sonography was performed. FINDINGS: Complex right ovarian cyst is present 2.1 cm in size. Internal echogenicity may be due to cellular debris or intra cyst hemorrhage. Cyst maintains smooth oval shape. Doppler evaluation shows normal blood flow within the right ovarian stroma. Minimal amount of reactive fluid is seen adjacent to the right ovary. Small follicles are seen some of which are peripherally distributed. Ovarian stro ma is slightly echogenic. Left ovary is normal size with small follicles present. The follicles are peripherally distributed bu t the echogenicity of the ovarian stroma is normal range. Both ovaries are normal size. Doppler asses sment shows normal left ovarian stromal blood flow pattern. Uterus is 9.6 x 5.2 x 6.0 cm with no myometrial mass lesion identifiable. Small amount of fluid or ol d blood is present in the cervical canal. Endometrium is thickened at 16 mm. In the fundal portion th ere is slightly more heterogeneous endometrial tissue. The endometrium - myometrium interface is pres erved. A discrete endometrial mass or polyp is not confirmed. IMPRESSION: Complex 2 centimeter right ovarian mass believed to be cyst with internal hemorrhage. Bilateral ovaries show some characteristics suggestive of PCOS; however, this possibility would need correlation with clinical findings. Thickened, heterogeneous endometrium with no extension into the myometrial tissue. No discrete endome trial mass or polyp identifiable.
--- NOTE | 2022-01-20 15:41 | ER ---
Nurse's Notes [facility] Name: Nolberto Hernandez Able Age: 31 yrs Sex: Female : 1990 Arrival Date: 01/20/2022 Time: 11:31 Bed 25 Private MD: Giovanny Hubbard R Diagnosis: Other ovarian cysts Presentation: 01/20 11:44 Chief complaint: Patient states: "I woke up at 5am with excruciating pain in my lower ab2 stomach and back. My stomach is swollen I look ." Pt c/o nausea and suprapubic pain and lower back pain. Coronavirus screen: Vaccine status: Patient reports being unvaccinated. Client denies travel out of the [place] in the last 14 days. At this time, the client does not indicate any symptoms associated with coronavirus-19. Ebola Screen: Patient negative for fever greater than or equal to 101.5 degrees Fahrenheit, and additional compatible Ebola Virus Disease symptoms Patient denies exposure to infectious person. Patient denies travel to an Ebola-affected area in the 21 days before illness onset. No symptoms or risks identified at this time. Initial Sepsis Screen: Does the patient meet any 2 criteria? No. Patient's initial sepsis screen is negative. Does the patient have a suspected source of infection? No. Patient's initial sepsis screen is negative. Risk Assessment: Do you want to hurt yourself or someone else? Patient reports no desire to harm self or others. Onset of symptoms is unknown. 11:44 Method Of Arrival: Ambulatory ab2 11:44 Acuity: BRANDY 3 ab2 Triage Assessment: 11:47 General: Appears in no apparent distress. uncomfortable, Behavior is calm, cooperative, ab2 appropriate for age. Pain: Complains of pain in suprapubic area Pain currently is 8 out of 10 on a pain scale. 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 Cardiovascular: No deficits noted. Denies chest pain, shortness of breath. Respiratory: Airway is patent Respiratory effort is even, unlabored, Respiratory pattern is regular, symmetrical. GI: Reports lower abdominal pain, bloating, nausea. : No deficits noted. No signs and/or symptoms were reported regarding the genitourinary system. Historical: - Allergies: 11:46 Codeine (Anaphylaxis); ab2 11:46 Hydrocodone-Acetaminophen (Anaphylaxis); ab2 11:46 tramadol (Anaphylaxis); ab2 - PMHx: 11:46 PCOS; Endometriosis of vagina; ab2 - Immunization history:: Adult Immunizations up to date. - Social history:: Smoking status: Patient denies any tobacco usage or history of. Screenin:47 Abuse screen: Denies threats or abuse. Denies injuries from another. Nutritional ld1 screening: No deficits noted. Tuberculosis screening: No symptoms or risk factors identified. Fall Risk None identified. Assessment: 12:47 General: Appears in no apparent distress. uncomfortable, Behavior is cooperative, ld1 appropriate for age, crying, fussy. Pain: Complains of pain in right lower quadrant and left lower quadrant Pain does not radiate. Pain currently is 9 out of 10 on a pain scale. Quality of pain is described as burning, aching, Pt reports swollen feeling. Neuro: Level of Consciousness is awake, alert, obeys commands, Oriented to person, place, time, situation. Cardiovascular: Capillary refill < 3 seconds Patient's skin is warm and dry. Respiratory: Airway is patent Respiratory effort is even, unlabored, Respiratory pattern is regular, symmetrical. GI: Abdomen is round non-distended, Reports lower abdominal pain, nausea. : No signs and/or symptoms were reported regarding the genitourinary system. EENT: No signs and/or symptoms were reported regarding the EENT system. Derm: No signs and/or symptoms reported regarding the dermatologic system. Musculoskeletal: No signs and/or symptoms reported regarding the musculoskeletal system. 14:03 Reassessment: Patient and/or family updated on plan of care and expected duration. Pain ld1 level reassessed. Pt c/o lower abdominal pain after ultrasound. Notified ERP. See MAR for orders. Vital Signs: 11:44 BP 128 / 56; Pulse 76; Resp 18; Temp 98.3(TE); Pulse Ox 100% ; Weight 73.94 kg; Height ab2 5 ft. 2 in. (157.48 cm); Pain 8/10; 12:47 BP 105 / 89; Pulse 57; Resp 18; Pulse Ox 100% on R/A; Pain 9/10; ld1 14:01 BP 110 / 69; Pulse 68; Resp 18; Pulse Ox 100% on R/A; Pain 8/10; ld1 15:18 BP 112 / 70; Pulse 57; Resp 18; Pulse Ox 100% on R/A; ld1 11:44 Body Mass Index 29.81 (73.94 kg, 157.48 cm) ab2 ED Course: 11:31 Patient arrived in ED. as 11:32 Giovanny Hubbard MD is Private Physician. as 11:46 Triage completed. ab2 11:47 Arm band placed on left wrist. ab2 12:21 Alyson Lerma, DEBBY is Primary Nurse. ld1 12:23 Franki Rincon PA is PHCP. jmm 12:23 James Ramirez MD is Attending Physician. jmm 12:47 Patient has correct armband on for positive identification. Placed in gown. Bed in low ld1 position. Call light in reach. Side rails up X2. monitoring manager on. Pulse ox on. NIBP on. Door closed. Noise minimized. Warm blanket given. 12:47 No provider procedures requiring assistance completed. Inserted saline lock: 20 gauge ld1 in left antecubital area, using aseptic technique. 13:33 Transvaginal Study Probe In Process Unspecified. EDMS 15:40 Amy Cisneros MD is Referral Physician. [facility] 15:51 IV discontinued, intact, bleeding controlled, No redness/swelling at site. ld1 Administered Medications: 12:47 Drug: Zofran (Ondansetron) 4 mg Route: IVP; Site: left antecubital; ld1 12:59 Follow up: Response: No adverse reaction ld1 12:59 Drug: morphine 4 mg Route: IVP; Site: left antecubital; ld1 12:59 Follow up: Response: No adverse reaction ld1 14:13 Drug: Ketorolac 30 mg Route: IVP; Site: left antecubital; ld1 Outcome: 15:40 Discharge ordered by . [facility] 15:51 Discharged to home ambulatory. ld1 15:51 Condition: stable 15:51 Discharge instructions given to patient, Instructed on discharge instructions, follow up and referral plans. medication usage, Demonstrated understanding of instructions, follow-up care, medications. 15:51 Patient left the ED. ld1 Signatures: Dispatcher [employer] EDMS Franki Rincon PA PA jmm Martinez, Amelia as Dibbern, Lauren, RN RN ld1 Alexis Farnsworth ab2 Corrections: (The following items were deleted from the chart) 14:03 14:01 Reassessment: Patient appears in no apparent distress at this time. Patient is ld1 alert, oriented x 3, equal unlabored respirations, skin warm/dry/pink. ld1
--- NOTE | 2022-01-20 15:42 | EDPHYS ---
Physician Documentation [facility] Name: Nolberto Rosales Age: 31 yrs Sex: Female : 1990 Arrival Date: 01/20/2022 Time: 11:31 Bed 25 Private MD: Giovanny Hubbard R ED Physician James Ramirez HPI: 01/20 12:31 This 31 yrs old Female presents to ER via Ambulatory with complaints of Pelvic Pain. jmm 12:31 The patient presents with pelvic pain. Onset: The symptoms/episode began/occurred jmm acutely, this morning. Modifying factors: The symptoms are alleviated by nothing, the symptoms are aggravated by nothing. Associated signs and symptoms: Pertinent negatives: fever, vaginal bleeding, vomiting. Is a 31-year-old female with history of PCOS, endometriosis the presents emerged part with complaints of acute onset pelvic pain beginning at this morning at approximately 5. Patient states it does not feel similar to previous episodes of ovarian cyst ruptures. Denies dysuria.. Historical: - Allergies: 11:46 Codeine (Anaphylaxis); ab2 11:46 Hydrocodone-Acetaminophen (Anaphylaxis); ab2 11:46 tramadol (Anaphylaxis); ab2 - PMHx: 11:46 PCOS; Endometriosis of vagina; ab2 - Immunization history:: Adult Immunizations up to date. - Social history:: Smoking status: Patient denies any tobacco usage or history of. ROS: 12:31 Constitutional: Negative for fever, chills, and weight loss, Cardiovascular: Negative jmm for chest pain, palpitations, and edema, Respiratory: Negative for shortness of breath, cough, wheezing, and pleuritic chest pain. 12:31 : Positive for pelvic pain. 12:31 All other systems are negative. Exam: 12:31 Constitutional: This is a well developed, well nourished patient who is awake, alert, jmm and in no acute distress. Head/Face: atraumatic. Eyes: EOMI, no conjunctival erythema appreciated ENT: Moist Mucus Membranes Neck: Trachea midline, Supple Chest/axilla: Normal chest wall appearance and motion. Cardiovascular: Regular rate and rhythm. No edema appreciated Respiratory: Normal respirations, no respiratory distress appreciated 12:31 Back: Normal ROM Skin: General appearance color normal MS/ Extremity: Moves all extremities, no obvious deformities appreciated, no edema noted to the lower extremities Neuro: Awake and alert Psych: Behavior is normal, Mood is normal, Patient is cooperative and pleasant 12:31 Abdomen/GI: Inspection: abdomen appears normal, Bowel sounds: normal, Palpation: soft, mild abdominal tenderness, in the suprapubic area. Vital Signs: 11:44 BP 128 / 56; Pulse 76; Resp 18; Temp 98.3(TE); Pulse Ox 100% ; Weight 73.94 kg; Height ab2 5 ft. 2 in. (157.48 cm); Pain 8/10; 12:47 BP 105 / 89; Pulse 57; Resp 18; Pulse Ox 100% on R/A; Pain 9/10; ld1 14:01 BP 110 / 69; Pulse 68; Resp 18; Pulse Ox 100% on R/A; Pain 8/10; ld1 15:18 BP 112 / 70; Pulse 57; Resp 18; Pulse Ox 100% on R/A; ld1 11:44 Body Mass Index 29.81 (73.94 kg, 157.48 cm) ab2 MDM: 12:31 Patient medically screened. [facility] 15:38 Data reviewed: vital signs, nurses notes. Counseling: I had a detailed discussion with juan miguel the patient and/or guardian regarding: the historical points, exam findings, and any diagnostic results supporting the discharge/admit diagnosis, lab results, radiology results, the need for outpatient follow up, to return to the emergency department if symptoms worsen or persist or if there are any questions or concerns that arise at home. ED course: Labs are unremarkable. Imaging studies reveals ovarian cyst rupture. Patient advised follow with gynecology and otherwise given strict return precautions. Patient understood and agrees plan of care.. 01/20 12:32 Order name: CBC with Diff; Complete Time: 13:27 [facility] 01/20 12:32 Order name: CMP; Complete Time: 13:41 [facility] 01/20 12:32 Order name: Lipase; Complete Time: 13:41 [facility] 01/20 12:39 Order name: Urine Dipstick-Ancillary; Complete Time: 12:55 [facility] 01/20 12:43 Order name: Urine --Ancillary (enter results); Complete Time: 12:55 [facility] 01/20 12:32 Order name: IV Saline Lock; Complete Time: 12:47 [facility] 01/20 12:32 Order name: Labs collected and sent; Complete Time: 12:47 [facility] 01/20 12:32 Order name: Urine Dipstick-Ancillary (obtain specimen); Complete Time: 12:42 [facility] 01/20 12:32 Order name: Urine Test (obtain specimen); Complete Time: 12:42 [facility] 01/20 12:38 Order name: Transvaginal Study Probe; Complete Time: 14:48 EDMS Administered Medications: 12:47 Drug: Zofran (Ondansetron) 4 mg Route: IVP; Site: left antecubital; ld1 12:59 Follow up: Response: No adverse reaction ld1 12:59 Drug: morphine 4 mg Route: IVP; Site: left antecubital; ld1 12:59 Follow up: Response: No adverse reaction ld1 14:13 Drug: Ketorolac 30 mg Route: IVP; Site: left antecubital; ld1 Disposition: 17:12 Co-signature as Attending Physician, James Ramirez MD I agree with the assessment and kdr plan of care. Disposition Summary: 01/20/22 15:40 Discharge Ordered Location: Home [facility] Condition: Stable [facility] Diagnosis - Other ovarian cysts [facility] Followup: [facility] - With: Amy Cisneros MD - When: 2 - 3 days - Reason: Recheck today's complaints, Continuance of care, Re-evaluation by your physician Discharge Instructions: - Discharge Summary Sheet [facility] - Ovarian Cyst [facility] Forms: - Medication Reconciliation Form [facility] - Thank You Letter [facility] - Antibiotic Education [facility] - Prescription Opioid Use [facility] Prescriptions: - Diclofenac Sodium 75 mg Oral Tablet Sustained Release - take 1 tablet by ORAL route 2 times per day; 30 tablet; Refills: 0, Product [facility] Selection Permitted - orphenadrine citrate 100 mg Oral Tablet Sustained Release - take 1 tablet by ORAL route 2 times per day As needed; 20 tablet; Refills: 0, [facility] Product Selection Permitted Signatures: Dispatcher [employer] EDJames Lamar MD MD kdr Mickail, Joel, PA PA [facility] Alyson Lerma RN RN ld1 Alexis Farnsworth2 Corrections: (The following items were deleted from the chart) 12:38 12:33 Pelvis Complete+US.RAD.BRZ ordered. EDMS EDMS
[2022-01-20 18:35] VITALS: TEMP 98.3; O2SAT 100
[2022-01-20 18:40] VITALS: BP 112/70
== END 2022-01-20 15:51 | disposition home or self-care (01) ==
LOC: ER 11:30
DX: N83.291 Other ovarian cyst, right side (principal); Z88.5 Allergy status to narcotic agent
CPT/HCPCS: 36415; 76830; 80053; 81003; 81025; 83690; 85025; 96374; 96375; 99284; J2405

== ENCOUNTER 2022-01-23 23:27 | Inpatient (IN) | payer SELFPAY ==
--- OUTSIDE RECORDS SUMMARY | 2022-01-23 23:31 | XMS REPORT | Continuity of Care Document ---
:1990 Author Organization [facility] t Address [address] [place] [address] Care Team Providers Name Role Phone EVELIA [...] MIN 3 2018-12-17 00:00:00 [facility] RIGHT [id number] Physicians [U] XRAY ANKLE MIN 3 2018-07-04 00:00:00 [facility] RIGHT [id number] Physicians [U] XRAY ANKLE MIN 3 2018-05-01 00:00:00 [facility] RIGHT [id number] Physicians [U] XRAY ANKLE MIN 3 2018-03-20 00:00:00 [facility] RIGHT [id number] Physicians [U] XRAY ANKLE MIN 3 2018-03-13 00:00:00 [facility] RIGHT [id number] Physicians [U] XRAY ANKLE MIN 3 2018-02-12 00:00:00 [facility] RIGHT [id number] Physicians [U] XRAY ANKLE MIN 3 2018-01-15 00:00:00 [facility] RIGHT [id number] Physicians [U] XRAY ANKLE MIN 3 2017-12-28 00:00:00 [facility] RIGHT [id number] Physicians [U] XRAY ANKLE MIN 3 2017-11-16 00:00:00 [facility] RIGHT [id number] Physicians [U] XRAY ANKLE MIN 3 2017-09-28 00:00:00 [facility] RIGHT [id number] Physicians [U] XRAY TIBIA FIBULA 2017-09-28 00:00:00 [facility] 2 VWS RIGHT [id number] Physicians Plan of Care Planned Activity Planned Date Details Comments Source Diagnostic Test 2018-03-14 [U] XRAY ANKLE [facility] Pending 00:00:00 MIN 3 VWS RIGHT Physicians [id number] [code = [id number]] Diagnostic Test 2017-09-29 [U] XRAY ANKLE [facility] Pending 00:00:00 MIN 3 VWS RIGHT Physicians [id number] [code = [id number]] Diagnostic Test 2017-09-29 [U] XRAY TIBIA [facility] Pending 00:00:00 FIBULA 2 VWS Physicians RIGHT [id number] [code = [id number]] Encounters Start End Encounter Admission Attending Care Care Encounter Source Date/Time Date/Time Type Type Clinicians Facility Department ID 2018-12-19 2018-12-19 [facility] [id number] Univers 09:45:00 09:45:00 t; [facility] Madiha FRAGA M.D. ans 2018-07-04 2018-07-04 [facility] [id number] Univers 09:45:00 09:45:00 t; FLAKITO [facility] Pennie M.D. [place] Madiha FRAGA M.D. ans 2018-05-02 2018-05-02 [facility] [id number] Univers 09:45:00 09:45:00 t; FLAKITO [facility] asad ALTAMIRANO M.D. [place] Madiha FRAGA M.D. ans 2018-03-21 2018-03-21 [facility] [id number] Univers 10:00:00 10:00:00 t; FLAKITO [facility] asad ALTAMIRANO M.D. [place] Madiha FRAGA M.D. ans 2018-03-14 2018-03-14 [facility] [id number] Univers 09:15:00 09:15:00 t; FLAKITO [facility] asad ALTAMIRANO M.D. [place] Madiha FRAGA M.D. ans 2018-02-14 2018-02-14 [facility] [id number] Univers 09:45:00 09:45:00 t; FLAKITO [facility] Miriam ALTAMIRANO [place] Madiha FRAGA M.D. ans 2018-01-17 2018-01-17 [id number] Univers 09:45:00 09:45:00 t; FLAKITO [facility] Miriam ALTAMIRANO [place] Madiha FRAGA [facility]. [facility] 2018-01-01 2018-01-01 Celine ALTAMIRANO [facility] Orthopedics [id number] Univers 09:45:00 09:45:00 t; FLAKITO [facility] Miriam ALTAMIRANO [place] Madiha FRAGA M.D. [facility] 2017-11-22 2017-11-22 Celine ALTAMIRANO [facility] [id number] Univers 13:15:00 13:15:00 t; britta FRAGA M.D. [place] Madiha FRAGA M.D. [facility] 2017-11-17 2017-11-17 Celine ALTAMIRANO [facility] Orthopedics [id number] Univers 11:15:00 11:15:00 t; FLAKITO [facility] asad ALTAMIRANO M.D. [place] Madiha FRAGA M.D. [facility] 2017-11-10 2017-11-10 Celine ALTAMIRANO [facility] [id number] Univers 10:00:00 10:00:00 t; britta FRAGA M.D. [place] Madiha FRAGA M.D. [facility] 2017-11-09 2017-11-09 [id number] Univers 10:15:00 10:15:00 t; KIRSTEN CHINCHILLA ity o f JOSHUA, M.D. [place] M.D. [facility] 2017-09-29 2017-09-29 Celine ALTAMIRANO [facility] Orthopedics [id number] Univers 10:00:00 10:00:00 t; FLAKITO [facility] Miriam ALTAMIRANO [place] Madiha FRAGA M.D. ans 2017-08-18 2017-08-18 Appointmen EVELIA, [facility] UTP [id number] Univers 14:15:00 14:15:00 t; britta FRAGA M.D. [place] Madiha FRAGA M.D. ans 2017-08-18 2017-08-18 Appointmen TIFFANIE [facility]O [facility] [id number] Univers 10:00:00 10:00:00 t; FLAKITO [facility] asad ALTAMIRANO M.D. [place] Madiha FRAGA M.D. ans 2017-08-10 2017-08-10 Appointmen RENEE, [facility] UTP [id number] Univers 10:15:00 10:15:00 t; DEVIN DURAN ity of [place], P.A. [place] P.A. Physici ans 2017-05-11 2017-05-11 Appointmen RENEE, [facility] UTP [id number] Univers 10:15:00 10:15:00 t; DEVIN DURAN [facility] [place] [place] P.A. Physici ans 2017-04-13 2017-04-13 Appointmen RENEE, [facility] UTP [id number] Univers 10:15:00 10:15:00 t; DEVIN DURAN [facility]y of [place], P[facility]A. [place] P.A. Physici ans 2017-03-17 2017-03-17 Appointmen RENÉE, [facility] UTP [id number] Univers 08:30:00 08:30:00 t; KIRSTEN CHINCHILLA ity o f JOSHUA, M.D. [place] M.D. Physici ans 2017-03-16 2017-03-16 Appointmen RENEE, [facility] UTP [id number] Univers 10:15:00 10:15:00 t; DEVIN DURAN [facility]y of [place], P.A. [place] P.A. Physici ans 2017-02-23 2017-02-23 Appointmen RENÉE, UTP UTP [id number] Univers 10:15:00 10:15:00 t; KIRSTEN CHINCHILLA ity o f JOSHUA, M.D. [place] M.D. Physici ans 2017-02-16 2017-02-16 Appointmen RENEE, [facility] [id number] Univers 11:00:00 11:00:00 t; DEVIN DURAN ity of [facility], P.A. [place] P.A. Physici ans 2017-02-03 2017-02-03 Appointmen TIFFANIE CHINCHILLA [facility] [id number] Univers 07:30:00 07:30:00 t; KIRSTEN CHINCHILLA ity o f JOSHUA, M.D. [place] Miriam Physici ans 2017-01-26 2017-01-26 Appointmen RENEE [facility] [id number] Univers 09:15:00 09:15:00 t; DEVIN DURAN ity of [place], P.A. [place] P.A. Physici ans Results Test Description Test Time Test Comments Results Result Sour e Comments [U] XRAY ANKLE 2018-07-04 [facility] 3 VWS RIGHT 09:06:00 acquired, not [place] [id number] reported on Physicians this accession number. [U] XRAY ANKLE 2018-03-21 [facility] 3 VWS RIGHT 09:40:00 acquired, not [place] [id number] reported on Physicians this accession number. [U] XRAY ANKLE 2018-02-14 [facility] 3 VWS RIGHT 09:10:00 acquired, not [place] [id number] reported on Physicians this accession number. [U] XRAY ANKLE 2018-01-17 [facility] 3 VWS RIGHT 09:46:00 acquired, not [place] [id number] reported on Physicians this accession number. [U] XRAY ANKLE 2018-01-01 [facility] 3 VWS RIGHT 10:04:00 acquired, not [place] [id number] reported on Physicians this accession number. [U] XRAY ANKLE 2017-11-17 [facility] 3 VWS RIGHT 11:48:00 acquired, not [place] [id number] reported on Physicians this accession number. [U] XRAY ANKLE 2017-11-09 [facility] 3 VWS RIGHT 10:27:00 acquired, not [place] [id number] reported on Physicians this accession number. [U] XRAY ANKLE 2017-09-29 [facility] 3 VWS RIGHT 09:26:00 acquired, not [place] [id number] reported on Physicians this accession number. [U] XRAY TIBIA 2017-09-29 [facility] 2 VWS 09:26:00 acquired, not [place] RIGHT [id number] reported on Physicians this accession number.
[2022-01-24] MEDS ORDERED: ONDANSETRON 4 MG/2 ML VIAL ONE (01:22)
[2022-01-24] MEDS ORDERED: FAMOTIDINE 20 MG/2 ML VIAL IV ONE (01:22)
[2022-01-24] MEDS ORDERED: NA CHLORIDE 0.9% 1,000 ML ONE (01:22)
[2022-01-24] MEDS ORDERED: MORPHINE 4 MG/ML SYR ONE (02:05)
[2022-01-24 03:07] LABS: Absolute Lymphocytes (CBC) 0.4 K/uL (0.7-4.9); Hematocrit 22.1 % (36.0-45.0); Lymphocytes % 5.3 % (15.3-44.8); MPV 8.7 fL (7.6-11.3); RBC Red Blood Cell Count 2.98 M/uL (3.86-4.86)
[2022-01-24 03:19] LABS: Bilirubin Total 0.3 mg/dL (0.2-1.0); Potassium 3.7 mmol/L (3.5-5.1); Protein, Total 6.3 g/dL (6.4-8.2)
[2022-01-24] MEDS ORDERED: PROMETHAZINE INJ 25 MG/ML AMP ONE (03:38)
[2022-01-24 03:46] LABS: Blood Morphology Comment NOT SEEN (NOT SEEN); Platelet Estimate ADEQ
[2022-01-24 04:22] LABS: Urine Blood Negative (Negative); Urine Glucose Negative (Negative); Urine Protein Negative (Negative); Urine Specific Gravity 1.015 (1.005-1.030); Urine pH 5.5 (5.0-7.0)
[2022-01-24 05:02] LABS: Urine Specific Gravity/Preg 1.015 (1.005-1.030)
[2022-01-24] MEDS ORDERED: NA CHLORIDE 0.9% 250 ML ONE ×2 (05:16→07:27)
[2022-01-24 05:29] LABS: Urine Bacteria <20 /HPF (<20); Urine RBC NONE SEEN /HPF (NONE SEEN)
[2022-01-24 06:21] LABS: Protime INR 1.11
[2022-01-24] MEDS ORDERED: ACETAMINOPHEN 325 MG TABLET ONE (07:26)
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
[2022-01-24] MEDS ORDERED: DIPHENHYDRAMINE 50 MG/ML VIAL ONE (08:57)
[2022-01-24] MEDS ORDERED: ACETAMINOPHEN 325 MG TABLET PO PRN (09:09)
[2022-01-24] MEDS ORDERED: NA CHLORIDE 0.9% 100 ML ONE (12:06)
[2022-01-24 12:15] VITALS: O2SAT 100
[2022-01-24 12:36] VITALS: BMI 31.6
[2022-01-24] MEDS: ONDANSETRON 4 MG/2 ML VIAL IV PRN (13:45)
--- NOTE | 2022-01-24 15:15 | RAD REPORT ---
EXAM DESCRIPTION: US - Transvaginal Study Probe - 01/24/2022 5:59 am CLINICAL HISTORY: 31 years Female, ovarian cyst;Abd cramping, COMPARISON: None. TECHNIQUE: Complete pelvic ultrasound obtained with transvaginal imaging. FINDINGS: Uterus: Uterus measures 9.4 x 5.6 x 7.0 cm. No myometrial abnormalities. Venous system of the cervix. Endometrium: Endometrial thickness 1.1 cm. Right ovary: The right ovary measures 4.0 x 5.0 x 3.2 cm., Dominant right ovarian follicle measuring 2.5 cm. Left ovary: The left ovary measures 4.0 x 2.1 x 2.6 cm. Adnexa: No large adnexal masses. Free fluid: Small amount of free pelvic fluid. Duplex imaging: Color and spectral Doppler imaging demonstrates blood flow within the ovaries. IMPRESSION: 1. Right ovarian follicle measuring 2.5 cm. No follow-up imaging recommended. 2. Small amount of free fluid. This may be physiologic. Electronically signed by: Carlton Fuller 01/24/2022 5:47 AM CDT Due to temporary technical issues with the PACS/Fluency reporting system, reports are being signed by the in house radiologist without review as a courtesy to ensure prompt reporting. The interpreting r adiologist is fully responsible for the content of the report.
[2022-01-24] MEDS: D5 0.45 NS 1,000 ML IV SCH (15:19)
--- NOTE | 2022-01-24 16:19 | RAD REPORT ---
EXAM DESCRIPTION: CT - Abdomen Pelvis W Contrast - 01/24/2022 6:39 am ADDENDUM #1 THIS REPORT CONTAINS FINDINGS THAT MAY BE CRITICAL TO PATIENT CARE: The findings were verbally discu ssed via telephone conference with Dr. Lupillo Ralph by Dr. Binu Harley on 01/24/2022 3:59 AM CDT .The results were acknowledged and understood. Electronically signed by: Binu Harley MD 01/24/2022 3:59 AM CDT End of Addendum EXAM DESCRIPTION: CT Abdomen and Pelvis With Intravenous Contrast CLINICAL HISTORY: The patient is 31 years old and is Female; Abd pain;Nausea / vomiting TECHNIQUE: Axial computed tomography images of the abdomen and pelvis with intravenous contrast. S agittal and coronal reformatted images were created and reviewed. This CT exam was performed using one or more of the following dose reduction techniques: automated exposure control, adjustment of t he mA and/or kV according to patient size, and/or use of iterative reconstruction technique. COMPARISON: CT abdomen and pelvis with contrast January 12, 2020 FINDINGS: Lung bases: Unremarkable. No mass. No consolidation. ABDOMEN: Liver: Unremarkable. No mass. Gallbladder and bile ducts: Unremarkable. No calcified stones. No ductal dilation. Pancreas: Unremarkable. No mass. No ductal dilation. Spleen: Unremarkable. No splenomegaly. Adrenals: Unremarkable. No mass. Kidneys and ureters: Unremarkable. No solid mass. No hydronephrosis. Stomach and bowel: Postsurgical changes in the stomach. No obstruction. No mucosal thickening. PELVIS: Appendix: No findings to suggest acute appendicitis. Bladder: Unremarkable. No mass. Reproductive: Suggestion of an ill-defined 3.4 cm cystic lesion in the right adnexal region with in the heterogeneous fluid. Slightly heterogeneous appearing uterus. ABDOMEN and PELVIS: Intraperitoneal space: Moderate amount of low-density free fluid throughout the abdomen and pelv is. In the pelvis, there appears to be heterogeneous fluid with scattered areas of hyperdensity which may represent contrast extravasation or hemorrhage. No definitive source of bleeding or contrast ext ravasation is identified. No free air. Bones/joints: No acute fracture. No dislocation. Soft tissues: Unremarkable. Vasculature: Unremarkable. No abdominal aortic aneurysm. Lymph nodes: Unremarkable. No enlarged lymph nodes. IMPRESSION: 1. Moderate amount of low-density free fluid throughout the abdomen and pelvis. In the pelvis, there appears to be heterogeneous fluid with scattered areas of hyperdensity which may repre sent contrast extravasation or hemorrhage. No definitive source of bleeding or contrast extravasation is identified. 2. Suggestion of an ill-defined 3.4 cm cystic lesion in the right adnexal region within the heterog eneous fluid. Question the possibility of a ruptured cyst/mass. 3. Postsurgical changes in the stomach. Electronically signed by: Binu Harley MD 01/24/2022 3:50 AM CDT Due to temporary technical issues with the PACS/Fluency reporting system, reports are being signed by the in house radiologist without review as a courtesy to ensure prompt reporting. The interpreting r adiologist is fully responsible for the content of the report.
[2022-01-24] MEDS: MORPHINE 4 MG/ML SYR IV PRN (17:11)
[2022-01-24] MEDS ORDERED: ONDANSETRON 4 MG/2 ML VIAL IV SCH (19:00)
[2022-01-24] MEDS: HYDROCODONE/APAP 5/325 MG TAB PO PRN (19:27)
[2022-01-25] MEDS: HYDROCODONE/APAP 5/325 MG TAB PO PRN (01:38)
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
[2022-01-25 08:30] LABS: Hematocrit 22.3 % (36.0-45.0)
[2022-01-25] MEDS: D5 0.45 NS 1,000 ML IV SCH (08:30)
[2022-01-25] MEDS: ONDANSETRON 4 MG/2 ML VIAL IV PRN (09:49)
[2022-01-25] MEDS: MORPHINE 4 MG/ML SYR IV PRN (12:15)
[2022-01-25 12:20] VITALS: BP 103/65; TEMP 98.5
[2022-01-25] MEDS ORDERED: MEDROXYPROGEST ACET 150 MG/ML IM SCH (14:00)
== END 2022-01-25 15:20 | disposition home or self-care (01) | DRG 760 ==
LOC: ER 23:27 → ERHOLD 01-24 08:08 → 2ND-WC 01-24 11:18 → OBSVTOIN 01-25 13:29
PROVIDERS: ADMIT Obstetrics & Gynecology; ATTEND Obstetrics & Gynecology
PROC: 30233N1 Transfusion of Nonautologous Red Blood Cells into Peripheral Vein, Percutaneous Approach (ICD-10-PCS; principal; 2022-01-25)
DX: N83.209 Unspecified ovarian cyst, unspecified side (principal); D62 Acute posthemorrhagic anemia; N92.0 Excessive and frequent menstruation with regular cycle; R11.0 Nausea; T40.605A Adverse effect of unspecified narcotics, initial encounter; Y92.230 Patient room in hospital as the place of occurrence of the external cause; Z20.822 Contact with and (suspected) exposure to COVID-19
CPT/HCPCS: 36415; 74177; 76830; 80053; 81003; 81015; 81025; 83690; 84702; 85014; 85018; 85025; 85610; 85730; 86850; 86900; 86901; 96361; 96374; 96375; 99285; J1050; J1200; J2405; J2550; J7030; J7050; J7799; P9016; Q9967; U0003

== ENCOUNTER 2022-03-04 10:10 | Day surgery (SDC) | payer SELFPAY ==
[2022-03-04 10:36] LABS: Urine Appearance CLEAR (Clear); Urine Bilirubin NEGATIVE (Negative); Urine Blood NEGATIVE (Negative); Urine Color YELLOW (Yellow); Urine Glucose NEGATIVE (Negative); Urine Microscopic Reflex NO UMIC; Urine Protein NEGATIVE (Negative); Urine Urobilinogen 0.2 mg/dL (0.2-1.0); Urine pH 7.5 (5.0-7.0)
[2022-03-04] MEDS ORDERED: Ringers Lactate 1,000 ML IV ONE ×2 (10:41→14:05)
[2022-03-04] MEDS ORDERED: SCOPOLAMINE HYDROBROMIDE PATCH TD ONE (10:41)
[2022-03-04] MEDS ORDERED: CELECOXIB 100 MG CAPSULE ONE (10:47)
[2022-03-04] MEDS ORDERED: ACETAMINOPHEN 500 MG TAB ONE (10:47)
[2022-03-04 10:58] LABS: Absolute Lymphocytes (CBC) 0.8 K/uL (0.7-4.9); Hematocrit 36.4 % (36.0-45.0); Lymphocytes % 19.9 % (15.3-44.8); MPV 8.7 fL (7.6-11.3); RBC Red Blood Cell Count 4.53 M/uL (3.86-4.86)
[2022-03-04] MEDS ORDERED: CEFAZOLIN 2 GM in NA CHLORIDE 0.9% 100 ML IVPB ONE (11:00)
[2022-03-04 11:01] VITALS: O2SAT 100
[2022-03-04] MEDS ORDERED: BUPIVACAINE 0.25% PF 10 ML VIAL ONE (11:03)
[2022-03-04] MEDS ORDERED: propofoL 200 MG/20 ML VIAL IV ONE (11:10)
[2022-03-04] MEDS ORDERED: ROCURONIUM 50 MG/5 ML VIAL IV ONE ×2 (11:10→13:19)
[2022-03-04] MEDS ORDERED: MIDAZOLAM HCL 2 MG/2 ML INJ ONE (11:11)
[2022-03-04] MEDS ORDERED: LIDOCAINE 2% MPF 5 ML VIAL ONE (11:11)
[2022-03-04] MEDS ORDERED: GLYCOPYRROLATE 0.2 MG/ML SYR ONE ×2 (11:11)
[2022-03-04] MEDS ORDERED: FENTANYL CITR 250 MCG/5 ML ONE (11:11)
[2022-03-04] MEDS ORDERED: ONDANSETRON 4 MG/2 ML VIAL ONE ×2 (11:13→15:46)
[2022-03-04] MEDS ORDERED: NEOSTIGMINE 1 MG/ML -10 ML VIAL ONE (11:13)
[2022-03-04 11:46] LABS: Anisocytosis 1+; Blood Morphology Comment NOTED (NOT SEEN); Platelet Estimate ADEQ; White Blood Cell Scan OK (OK)
[2022-03-04] MEDS ORDERED: dexAMETHasone 10 MG/ML VIAL ONE (13:10)
[2022-03-04] MEDS ORDERED: KETOROLAC 30 MG/ML INJ ONE (14:41)
[2022-03-04] MEDS ORDERED: PROMETHAZINE INJ 25 MG/ML AMP IV PRN (15:03)
[2022-03-04] MEDS ORDERED: IBUPROFEN 200 MG TAB PO PRN (15:03)
[2022-03-04] MEDS ORDERED: HYDROCODONE/APAP 5/325 MG TAB PO PRN (15:03)
--- NOTE | 2022-03-04 15:08 | P.BOP ---
Preoperative diagnosis: pelvic pain, menorrhagia, dysmenorrhea Postoperative diagnosis: same and endometriosis Primary procedure: TLH BS, Rt oophorectomy, endometriosis excision, Left ovariopexy Principal Cyber Engineer: Karen Corley) Estimated blood loss: min Specimen: uterus tubes, Rt ovary, endometriosis Left USL, Post vag wall Findings: endometriosis, right ovary, Left USL, post CDS Anesthesia: General Complications: None Fluids & blood products: [id number]=[id number];m PV=[id number] Transferred to: Recovery Room Condition: Good
[2022-03-04] MEDS: HYDROMORPHONE HCL 1 MG/ML INJ ONE ×2 (15:34→15:44)
[2022-03-04] MEDS ORDERED: MEPERIDINE HCL 25 MG/ML SYR ONE (15:36)
[2022-03-04] MEDS ORDERED: HYDROMORPHONE HCL 1 MG/ML INJ ONE (15:56)
[2022-03-04 16:34] VITALS: BP 105/64; TEMP 97.4
[2022-03-04] MEDS ORDERED: HYDROCODONE/APAP 5/325 MG TAB ONE (16:50)
--- NOTE | 2022-03-05 09:04 | OP ---
Date of Procedure: 03/04/2022 Surgeon: Amy Cisneros MD Career Services Representative: Karen Pina. Shani Carias was our second assist, mostly not scrubbed in the case. Preoperative Diagnoses: Pelvic pain, severe dysmenorrhea, menorrhagia, and chronic and acute blood l oss anemia. Postoperative Diagnoses: Pelvic pain, severe dysmenorrhea, menorrhagia, and chronic and acute blood loss anemia, and endometriosis. Procedures Performed: Total laparoscopic hysterectomy, bilateral salpingectomy, right oophorectomy, endometriosis excision, and left ovariopexy. Anesthesia: General endotracheal. Ebl: Minimal. Complications: No complications. Drains: No drains. Condition: Stable. Specimens: Uterus, bilateral tubes, right ovary, and endometriosis from the left uterosacral and the posterior vaginal wall or cul-de-sac. Findings: Uterus, slightly enlarged, boggy. Ovaries, left, appeared completely unremarkable. The right had an adhesion from the ovary to the tip of the omentum which was stained and hemosiderin like pigment. Then, on the top of the ovarian caps ule, there was a pucker and a significant indentation likely consistent with endometriosis on the ova fermin surface were probably , but at this time, really not active. There was a hemoperitone um, when I went in the abdominal cavity. At least, 50 cc of blood was seen. Description Of Procedure: After informed consent was verified, the patient was taken back to the OR. This is a 31-year-old patient who has no further desires for fertility and status post tubal ligati on, gastric sleeve for weight loss surgery, history of menorrhagia with significant dysmenorrhea, and pelvic pain, has been advised to have endometriosis excision in early 2021 and this was postponed pratik frazier to [facility] [place]. Then, patient had lost her insurance and has not followed up, until she was seen in the hospital, admitted through the ER for recurrent pain and bleeding and on the second time, she came in and when was admitted, she had a hemoglobin of 6 g from likely acute anemia from ruptured ovarian cy st and hemoperitoneum alongside her chronic anemia due to menorrhagia. Patient was discharged home with depot medroxyprogesterone for treatment of her bleeding, however, evelyne frazier came back 5 to 6 weeks later now with severe pain, having called on acute basis, wondering if she h ad to go to the ER. She was asked to come to the office and was examined and counseled here. She ma y need a surgery. She started spotting 2 days ago and this is when the pain had come back, so most l ikely breakthrough bleeding on Depo, ready to have a period and significant pain doubled over, unable to take any narcotics. She was given pain medication, discharged home. No evidence of any pelvic i nflammatory disease. Her prior infection testing results were all negative. After informed consent was verified, mom was present by her side. She was taken back to OR. 2 g of Ancef were given. SCD's were placed. A time-out was done. Abdomen, vulva, vagina, and perineum pre pped and draped in a sterile fashion. The patient was placed in a dorsal lithotomy position using Al blessing stirrups. A speculum placed to expose the cervix. The cervix was grasped with 2 Allis clamps and uterine cavit y was sounded. Then, a large VCare was introduced into place and fixed. Lozano was placed in the jac dder and attached to the retrograde filling. 1 cm infraumbilical incision made with a scalpel using the open laparoscopy technique. Fascia was ta gged with 0 Vicryl sutures and then the peritoneum was entered sharply. Two 5 ports were placed on the lateral aspects and 10 port in the suprapubic area. On entering the p eritoneal cavity, a significant amount of bleeding at least 50 mL of fresh blood was seen in the pelv ic cavity. Then, there was hemosiderin pigmentation and thick adhesion from the omentum to the right ovary. Then, endometriosis was present in the left and posterior cul-de-sac on the posterior vagina l wall and lateral wall on the uterosacral ligament. Then, there was more endometriosis at the utero sacral ligament and the area between the uterosacral and colon. All these implants were noted and tr acts of the ureters were visualized from the pelvic brim to the ureteric tunnel. There was no distor tion. We started the procedure by tying the epiploica of the sigmoid colon through the left upper quadrant incision with Edgardo-Mar needle with 3-0 Monocryl suture, once this was carefully clipped for re traction on the abdominal wall. This procedure was started. The LigaSure was taken. Peritoneum opened up in the mesosalpinx. Then, dissection made in the posterior peritoneum all the way down to the level of the uterine vessels. T hen, the utero-ovarian ligament was taken down. The tube was taken down and detached and left attach ed to the uterus. The round ligament taken down. The anterior peritoneum opened up to raise the jac dder flap all the way. Then, posteriorly peritoneum taken down to the level of the posterior cup and the remnant of the uterosacrals. Once this was done, the dissection of the peritoneal implants of t he endometriosis were included here at the distal left uterosacral area with the specimen. Then, posterior peritoneum was dissected all the way in the posterior cuff as well on the opposite si de, came down and took down the utero-ovarian ligament. The tube was dissected and removed. Then, t he round ligament taken down. The peritoneum opened up both anteriorly and posteriorly, posteriorly taken down to the posterior cuff, and anteriorly taken down to connect the bladder flap and the broad ligament was skeletonized to expose the vessels. Once the vessels were exposed on both sides, left side vessels were taken down with the help of the LigaSure and then the right side similarly with bip olar and scissors. The cardinal ligaments were taken down as well. Circumferential colpotomy with a monopolar hook blade was performed. Thorough irrigation and suction were performed. There was a small bleeder in the left angle cuff and this was cauterized with the help of the tip of the bipolar. No evidence of any injury to the ureters or the areas near the bladder. The left ureter was dissecte d to keep it safe and away from the plane of dissection. The vaginal cuff was closed with 2 angle 0 Vicryl simple sutures and then 3 [id number] in the c enter. Once all this was done, thorough irrigation and suction was performed and pictures were taken . Peritoneal implants of the endometriosis were dissected, holding close the peritoneal implant, lifted up, tenting this, opening the peritoneum gently and then making sure that I opened the entire area c ircumferentially of the largest endometriotic implant and this was dissected all the way down to norm al fat and then taken down between this implant and the uterus and the colon. The implant was also d issected sharply and with the bipolar cautery. Attention directed to the posterior cul-de-sac in the posterior vaginal wall. Endometriosis was disse cted circumferentially and excised with the help of the LigaSure. All these were taken out. Then, t he ovary was excised on the top around the area of the endometriotic pucker, however, there appeared to be more within the ovary. It was difficult to tell, even the source of pain, I wanted to remove th is and she was consented already. The LigaSure was used to dissect and open up the IP ligament and t his was taken of the LigaSure and specimen pulled out through the vagina. This was done before the center stitches were placed. After thorough irrigation and suction and clos ure, all the trocars were removed under direct vision. Gas was desufflated. All the port sites were injected with 0.25% Marcaine impregnated at the end of the case. She tolerated the procedure well. Lozano was removed. Vaginal packing was removed. Instrument, needle, and sponge counts x3 were radha ect at end of the case. She was recovered from anesthesia and taken to the PACU in stable condition. Plan for discharge same day with hydrocodone, if tolerated well in the PACU. Results notified to lyn tom. She has a 1-week follow up with us. JHON/ANDRES Voice ID: [id number] Report ID: [id number]
== END 2022-03-04 17:29 | disposition home or self-care (01) ==
LOC: OR 10:10
PROVIDERS: ATTEND Obstetrics & Gynecology
PROC: 0UT04ZZ Resection of Right Ovary, Percutaneous Endoscopic Approach (ICD-10-PCS; 2022-03-04)
PROC: 0UT74ZZ Resection of Bilateral Fallopian Tubes, Percutaneous Endoscopic Approach (ICD-10-PCS; 2022-03-04)
PROC: 0UQ14ZZ Repair Left Ovary, Percutaneous Endoscopic Approach (ICD-10-PCS; 2022-03-04)
PROC: 0UBF4ZZ Excision of Cul-de-sac, Percutaneous Endoscopic Approach (ICD-10-PCS; 2022-03-04)
PROC: 0UT94ZZ Resection of Uterus, Percutaneous Endoscopic Approach (ICD-10-PCS; principal; 2022-03-04 12:00)
DX: R10.2 Pelvic and perineal pain (principal); N94.6 Dysmenorrhea, unspecified; N92.0 Excessive and frequent menstruation with regular cycle; D62 Acute posthemorrhagic anemia; N80.3 Endometriosis of pelvic peritoneum; Z20.822 Contact with and (suspected) exposure to COVID-19
CPT/HCPCS: 36415; 81003; 81025; 85025; 86850; 86900; 86901; 88305; 88307; J0690; J1100; J1170; J2175; J2250; J2405; J2704; J2710; J3010; J7120; U0003

== ENCOUNTER 2024-06-22 05:54 | Emergency (ER) | payer SELFPAY ==
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
== END 2024-06-22 06:18 | disposition left against medical advice (07) ==
LOC: ER 05:54
DX: Z02.9 Encounter for administrative examinations, unspecified (principal)